=== PATIENT | male | born 1960 ===

== ENCOUNTER 2018-06-26 20:07 | Inpatient (IN) | payer OTHER ==
[~2018-06-26] VITALS: Ht 165.1 cm; Wt 41.1 kg
[2018-06-26 20:25] LABS: Calcium, Ionized (POC) 1.14 mmol/L (1.10-1.46); Chloride (POC) 98 mmol/L (98-108); Creatinine (POC) 0.9 mg/dL (0.8-1.3); Glucose (ISTAT POC) 239 mg/dL (70-99); Hemoglobin (POC) 15.6 g/dL (13.5-17.5); Sodium (POC) 138 mmol/L (135-148); Total CO2 (POC) 20 mmol/L (21-32)
[2018-06-26 20:25] LABS: Source, Urine Catheter
[2018-06-26 20:26] LABS: BASOPHILS ABSOLUTE AUTO 0.17 K/mm3 (0.00-0.23); BASOPHILS PERCENT AUTO 2 % (0-2); EOSINOPHILS ABSOLUTE AUTO 0.24 K/mm3 (0.00-0.68); EOSINOPHILS PERCENT AUTO 2 % (0-6); Hematocrit 45.8 % (37.0-53.0); Hemoglobin 14.7 g/dL (13.5-17.5); IMMATURE GRAN ABSOLUTE AUTO 0.22 K/mm3 (0.00-0.10); IMMATURE GRAN PERCENT AUTO 2 % (0-1); LYMPHOCYTES PERCENT AUTO 22 % (21-46); MONOCYTES ABSOLUTE AUTO 0.57 K/mm3 (0.16-1.47); MONOCYTES PERCENT AUTO 5 % (4-13); Mean Corpuscular HGB 33.2 pg (26.0-34.0); Mean Corpuscular HGB Conc 32.1 g/dL (31.5-36.5); Mean Corpuscular Volume 103 fL (80-100); Mean Platelet Volume 9.2 fL (9.1-12.4); NEUTROPHILS ABSOLUTE AUTO 7.44 K/mm3 (1.96-9.15); NEUTROPHILS PERCENT AUTO 67 % (41-73); Platelet Count 297 K/mm3 (150-400); RDW Coefficient Variation 13.5 % (11.7-14.2); RDW Standard Deviation 52.1 fL (35.1-46.3); Red Blood Cell Count 4.43 M/mm3 (4.30-5.90); White Blood Cell Count 11.04 K/mm3 (4.00-11.30)
[2018-06-26 20:33] LABS: Appearance, Urine Clear (Clear); Bilirubin, Urine Neg (Neg); Blood, Urine 4+ (Neg); Color, Urine Yellow (P-Yellow); Glucose Qualitative, Urine 3+ (Neg); Ketones, Urine Neg (Neg); Leukocyte Esterase, Urine Neg (Neg); Nitrite, Urine Neg (Neg); Protein, Urine 2+ (Neg); Specific Gravity, Urine 1.015 (1.003-1.022); Urobilinogen, Urine NORM (Normal)
[2018-06-26 20:45] LABS: PCO2 Arterial 37.9 mmHg (35-45); pH Blood Arterial 7.32 (7.35-7.45)
[2018-06-26 20:48] LABS: Bacteria Rare /hpf; Squamous Epithelial Cells Not Seen /hpf (Few); White Blood Cells, Urine 0-2 /hpf (0-5)
[2018-06-26 20:49] LABS: U Amphetamine Screen Not Detected; U Barbituate Screen Not Detected; U Benzodiazapine Screen Not Detected; U Cocaine Screen Not Detected; U Methadone Screen Not Detected; U Methamphetamine Screen Not Detected
[2018-06-26 20:50] LABS: U Buprenorphine Screen Not Detected; U Cannabinoids Screen Not Detected; U Opiates Screen Not Detected; U Oxycodone Screen Not Detected; U Phencyclidine Screen Not Detected; U Propoxyphene Screen Not Detected
[2018-06-26 21:46] LABS: Ethanol (Alcohol), Blood, Med <3 mg/dL
[2018-06-26 21:58] LABS: Albumin/Globulin Ratio 0.8 (0.8-1.8); Anion Gap 18 mmol/L (6-16); Aspartate Aminotrans (AST/SGOT 16 U/L (12-37); Bilirubin, Total 0.4 mg/dL (0.1-1.0); Blood Urea Nitrogen 8 mg/dL (8-24); CO2, Blood 18 mmol/L (21-32); Calcium, Blood 8.2 mg/dL (8.5-10.1); Chloride, Blood 100 mmol/L (98-108); Globulin, Blood 3.6 g/dL (2.2-4.0); Glucose, Blood 231 mg/dL (70-99); Sodium, Blood 136 mmol/L (136-145); Total Protein, Blood 6.6 g/dL (6.4-8.2); Troponin I <0.015 ng/mL (0.000-0.040)
[2018-06-26 22:15] LABS: Calcium, Ionized (POC) 1.02 mmol/L (1.10-1.46); Chloride (POC) 98 mmol/L (98-108); Creatinine (POC) 0.9 mg/dL (0.8-1.3); Glucose (ISTAT POC) 202 mg/dL (70-99); Hemoglobin (POC) 15.6 g/dL (13.5-17.5); Potassium (POC) 3.2 mmol/L (3.5-5.5); Sodium (POC) 138 mmol/L (135-148); Total CO2 (POC) 23 mmol/L (21-32)
[2018-06-26 22:18] LABS: Alanine Aminotransfer (ALT/SGP 26 U/L (12-78); Alk Phos 142 U/L (50-136); Bun/Creatinine Ratio 8.2 (12.0-20.0); Creatinine, Blood 0.98 mg/dL (0.60-1.20); Glomerular Filtration Rate >60 (60-)
[2018-06-26 23:04] LABS: International Normalized Ratio 1.05; Prothrombin Time Results 11.1 Sec (9.7-11.5)
[2018-06-26 23:15] LABS: PCO2 Arterial 37.6 mmHg (35-45); PO2 Arterial 174 mmHg (80-100); pH Blood Arterial 7.44 (7.35-7.45)
--- NOTE | 2018-06-27 00:14 | NUR ---
PT ARRIVED TO ICU 7 VIA GURNEY FROM ER, PT IS INTUBATED AND SEDATED, PROPOFOL AT 50 MCG/KG/MIN TO RIGHT AC IV SITE, ETT 8.0 NOTED AT 25 CM AT BOTTOM LIP HOWEVER 26 CM AT TOP LIP, ONLY 1 TOOTH PRESENT ALONG LOWER GUMLINE RIGHT SIDE OF MOUTH. VENT A/C 16, PEEP 5.0, FIO2 35 %, TV 500, ALL RESPIRATIONS AT THIS TIME ARE CONTROLLED, NO SPONTANEOUS ARE NOTED, LUNGS CLEAR THROUGHOUT, SATS 99%. HRR, TONES DISTANT, PRESSURES MAINTAINING, PULSES FULL X 4 EXTREMITIES. LACERATION NOTED TO NOSE, SUTURES PLACED IN ER, SEE PHOTO. PUPILS 2, SLIGHT REACTION TO LIGHT, NO TRACKING, PT DOES WITHDRAW FEET FROM NOXIOUS STIMULI HOWEVER NO RESPONSE TO BILAT UPPER EXTREMITIES, ON OCCASION ABNORMAL FLEXION IS NOTED TO BILAT UPPER EXTREMITIES. WILL MONITOR.
[2018-06-27 02:35] LABS: Hematocrit 41.5 % (37.0-53.0); Hemoglobin 14.2 g/dL (13.5-17.5); Mean Corpuscular HGB 32.9 pg (26.0-34.0); Mean Corpuscular HGB Conc 34.2 g/dL (31.5-36.5); Mean Platelet Volume 9.2 fL (9.1-12.4); Platelet Count 238 K/mm3 (150-400); RDW Coefficient Variation 13.2 % (11.7-14.2); RDW Standard Deviation 47.6 fL (35.1-46.3); Red Blood Cell Count 4.31 M/mm3 (4.30-5.90); White Blood Cell Count 12.88 K/mm3 (4.00-11.30)
[2018-06-27 02:37] LABS: Mean Corpuscular Volume 96 fL (80-100)
[2018-06-27 02:46] LABS: Alanine Aminotransfer (ALT/SGP 23 U/L (12-78); Albumin/Globulin Ratio 0.9 (0.8-1.8); Alk Phos 128 U/L (50-136); Anion Gap 8 mmol/L (6-16); Aspartate Aminotrans (AST/SGOT 12 U/L (12-37); Bilirubin, Total 0.7 mg/dL (0.1-1.0); Blood Urea Nitrogen 8 mg/dL (8-24); Bun/Creatinine Ratio 9.4 (12.0-20.0); CO2, Blood 25 mmol/L (21-32); Calcium, Blood 7.7 mg/dL (8.5-10.1); Chloride, Blood 106 mmol/L (98-108); Creatinine, Blood 0.85 mg/dL (0.60-1.20); Globulin, Blood 3.3 g/dL (2.2-4.0); Glomerular Filtration Rate >60 (60-); Glucose, Blood 76 mg/dL (70-99); Magnesium, Blood 2.2 mg/dL (1.6-2.4); Potassium, Blood 4.5 mmol/L (3.5-5.5); Sodium, Blood 139 mmol/L (136-145); Total Protein, Blood 6.3 g/dL (6.4-8.2)
[2018-06-27 03:45] LABS: Adenovirus Not Detected (NOT DETECT); Bordetella pertussis Not Detected (NOT DETECT); Chlamydophila pneumoniae Not Detected (NOT DETECT); Coronavirus 229E Not Detected (NOT DETECT); Coronavirus HKU1 Not Detected (NOT DETECT); Coronavirus NL63 Not Detected (NOT DETECT); Coronavirus OC43 Not Detected (NOT DETECT); Human Metapneumovirus Not Detected (NOT DETECT); Human Rhinovirus/Enterovirus Not Detected (NOT DETECT); Influenza A Not Detected (NOT DETECT); Influenza A/2009-H1 Not Detected (NOT DETECT); Influenza A/H1 Not Detected (NOT DETECT); Influenza A/H3 Not Detected (NOT DETECT); Influenza B Not Detected (NOT DETECT); Mycoplasma pneumoniae Not Detected (NOT DETECT); Parainfluenza Virus 1 Not Detected (NOT DETECT); Parainfluenza Virus 2 Not Detected (NOT DETECT); Parainfluenza Virus 3 Not Detected (NOT DETECT); Parainfluenza Virus 4 Not Detected (NOT DETECT); Respiratory Syncytial Virus Not Detected (NOT DETECT)
[2018-06-27 05:03] LABS: PO2 Arterial 113 mmHg (80-100); pH Blood Arterial 7.54 (7.35-7.45)
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
--- NOTE | 2018-06-27 11:00 | NUR ---
ASSUMED CARE OF PATIENT PATIENT INTUBATED, SEDATION ON STANDBY SINCE THIS AM. PATIENT DOES NOT APPEAR TO HAVE ANY PAIN OR DISCOMFORT AT THIS TIME. PATIENT HAS TEMP OF 98.6 DEGREES FAHRENHEIT. PATIENT SATTING WELL ON VENT SETTINGS OF AC 16, TV 500, PEEP 5, AND FIO2 OF 25%. PATIENT IN SR, HR 70S TO 80S. BP STABLE. BED LOW, CALL LIGHT IN REACH.
--- NOTE | 2018-06-27 12:30 | NUR ---
INITIAL ASSESSMENT PATIENT INTUBATED, NOT ON SEDATION. SEDATION PLACED ON STANDBY AT 0755 THIS AM. PATIENT IS RESPONSIVE TO PAINFUL STIMULI- LOCALIZING MOVEMENTS TO ALL EXTREMITIES. + COUGH, NO GAG OR SWALLOW REFLEXES NOTED. PUPILS 4+, REACT SLUGGISHLY TO LIGHT, DOLLS EYES NOTED. NO SIGNS OF PAIN NOTED. ICE AND FAN PLACED TO KEEP TEMP BELOW 98.6 DEGREES FAHRENHEIT FOR 24 HOURS AFTER REWARMING PER ORDERS. PATIENT SATTING WELL ON VENT SETTINGS OF AC 16, TV 500, PEEP 5, FIO2 25%. LUNGS CLEAR THROUGHOUT AFTER SUCTIONING. COPIOUS, MAROON, THICK ORAL SECRETIONS NOTED. SMALL AMOUNT OF FROTHY, YELLOW SPUTUM BEING SUCTIONED FROM ETT. RR 16. PATIENT IN SR, HR 60S TO 80S. BP STABLE. PULSES STRONG, NO EDEMA NOTED. ABDOMEN SOFT, NORMOACTIVE BS. DATE OF LAST BM UNKNOWN. OG TO LIS, DRAINING GREEN FLUID. TEMP PROBE YUSUF DRAINING GREEN/ TEA COLORED URINE. SKIN IS DRY. SCATTERED SCABS TO BLES. NOSE IS SWOLLEN AND CUT FROM FALL- SUTURES IN PLACE. NS WITH 40 KCL INFUSING AT 75 MLS/ HOUR. BED LOW, CALL LIGHT IN REACH. WILL CONTINUE TO MONITOR PATIENT FREQUENTLY THROUGHOUT SHIFT.
--- NOTE | 2018-06-27 14:45 | NUR ---
SPOKE TO DR. GREENWOOD ABOUT PATIENT'S INCREASED BP, HR AND RR. PATIENT APPEARS IF HE IS IN PAIN AND DID HAVE TRAUMATIC FALL. PRN ORDER FOR IV FENTANYL OBTAINED.
--- NOTE | 2018-06-27 17:17 | NUR ---
PATIENT REMAINS WITHOUT SEDATION. PATIENT HAS TEMP OF 99.1 DEGREES FAHRENHEIT. ICE PACKS REPLACED, FAN REMAINS ON, PRN TYLENOL GIVEN. PATIENT REMAINS SATTING WELL ON SAME VENT SETTINGS. PATIENT GIVEN PRN FENTANYL FOR SIGNS OF GRIMACING AND INCREASED BP.
--- NOTE | 2018-06-27 18:10 | NUR ---
SHIFT SUMMARY PATIENT REMAINED INTUBATED WITHOUT SEDATION THROUGHOUT SHIFT. PATIENT CONTINUED TO ONLY REACT TO PAINFUL STIMULI. PATIENT HAS BEEN SHIVERING SINCE TRYING TO KEEP TEMPERATURE UNDER 98.6 DEGREES FAHRENHEIT. PATIENT HAD TMAX OF 99.3 DEGREES FAHRENHEIT. PATIENT LUNGS COARSE UNTIL SUCTIONED AND THEN CLEAR THROUGHOUT. PATIENT REMAINS SATTING WELL ON SAME VENT SETTINGS. LARGE AMOUNT OF THICK, MAROON ORAL SECRETIONS NOTED. MODERATE AMOUNT OF FROTHY TO THICK, YELLOW SPUTUM BEING SUCTIONED FROM ETT. PATIENT REMAINS IN SR, HR 50S TO 90S. BLOOD PRESSURE ELEVATED AT TIMES- APPEARS TO BE RELATED TO PAIN. PRN FENTANYL GIVEN AND BP IMPROVED. OG REMAINS TO LIS DRAINING GREEN FLUID. TEMP PROBE YUSUF REMAINS DRAINING TEA TO GREEN COLORED URINE WITH SEDIMENT NOTED. NO CHANGE IN SKIN. BACITRACIN APPLIED TO NOSE T/O SHIFT. D5LR INFUSING AT 75 MLS/ HOUR. PATIENT DID NOT NEED BS COVERAGE T/O SHIFT. BED LOW, CALL LIGHT IN REACH. WILL CONTINUE TO MONITOR PATIENT FREQUENTLY UNTIL REPORT GIVEN TO ONCOMING STOCK CUTTER NURSE SHORTLY.
--- NOTE | 2018-06-27 18:35 | NUR ---
PATIENT GIVEN PRN HYDRALAZINE FOR CONTINUED HYPERTENSION- SBP OVER 160. WILL CONTINUE TO MONITOR.
--- NOTE | 2018-06-27 19:00 | NUR ---
ASSUMED CARE REPORT/ASSESSMENT COMPLETED. PT INTUBATED AT AC16/500/25%/5 WITHOUT SEDATION. PT HAS NO PURPOSEFUL MOVEMENT, HAS AN INTERNAL ROTATION OF BUE TO PAIN, NO CORNEAL OR GAG REFLEX. ICE PACKS IN PLACE, ORDER TO MAINTAIN CORE TEMP <98.6, PT IS SHIVERING. EKG SHOWS SR, BP ELEVATED BUT HAS JUST HAD ONE DOSE OF HYDRALAZINE. PLAN TO MEDICATE FOR PAIN IF CNVI ELEVATED.
--- NOTE | 2018-06-27 23:47 | NUR ---
SBT DISCUSSED SBT IN AM WITH RT. UPDATED THAT PT NOT ON ANY SEDATION. RT CHANGED PT OVER TO PS SETTING IN ORDER TO SEE IF PT WAS ABLE TO TOLERATE A FULL SBT IN AM. SBT LASTED UNDER ONE MINUTE D/T PT RR INCREASING FROM LOW-MID 20'S TO 35 AND PT HAD ALTERNATING SMALL BREATHS WITH LARGER VOLUME BREATHS WITH TV'S RANGING BETWEEN 50-250. SBT STOPPED D/T LOW TV'S.
--- NOTE | 2018-06-28 00:20 | NUR ---
UPDATE PT HAVING RHYTHMIC FLEXION AND INTERNAL ROTATION OF BUE WITH R>L AND SAME RHYTHMIC MOVEMENT NOTED TO BILAT KNEES. 1MG ATIVAN ADMINISTERED BUT NO CHANGE IN MOVEMENTS NOTED. PUPILS REMAIN REACTIVE WITH GAZE TO THE LFFT, NO GAG OR CORNEAL REFLEX NOTED.
[2018-06-28 03:46] LABS: BASOPHILS ABSOLUTE AUTO 0.05 K/mm3 (0.00-0.23); BASOPHILS PERCENT AUTO 0 % (0-2); EOSINOPHILS PERCENT AUTO 0 % (0-6); Hematocrit 41.8 % (37.0-53.0); Hemoglobin 14.1 g/dL (13.5-17.5); IMMATURE GRAN ABSOLUTE AUTO 0.09 K/mm3 (0.00-0.10); IMMATURE GRAN PERCENT AUTO 1 % (0-1); LYMPHOCYTES ABSOLUTE AUTO 0.49 K/mm3 (0.84-5.20); LYMPHOCYTES PERCENT AUTO 4 % (21-46); MONOCYTES ABSOLUTE AUTO 0.68 K/mm3 (0.16-1.47); MONOCYTES PERCENT AUTO 5 % (4-13); Mean Corpuscular HGB 32.3 pg (26.0-34.0); Mean Corpuscular HGB Conc 33.7 g/dL (31.5-36.5); Mean Corpuscular Volume 96 fL (80-100); Mean Platelet Volume 9.6 fL (9.1-12.4); NEUTROPHILS PERCENT AUTO 90 % (41-73); Platelet Count 244 K/mm3 (150-400); RDW Coefficient Variation 13.5 % (11.7-14.2); RDW Standard Deviation 47.6 fL (35.1-46.3); Red Blood Cell Count 4.37 M/mm3 (4.30-5.90); White Blood Cell Count 13.01 K/mm3 (4.00-11.30)
[2018-06-28 04:10] LABS: Alanine Aminotransfer (ALT/SGP 19 U/L (12-78); Albumin, Blood 2.6 g/dL (3.4-5.0); Albumin/Globulin Ratio 0.8 (0.8-1.8); Alk Phos 116 U/L (50-136); Anion Gap 10 mmol/L (6-16); Aspartate Aminotrans (AST/SGOT 15 U/L (12-37); Bilirubin, Direct 0.5 mg/dL (0.0-0.3); Bilirubin, Indirect 0.9 mg/dL (0.1-0.7); Bilirubin, Total 1.4 mg/dL (0.1-1.0); Blood Urea Nitrogen 11 mg/dL (8-24); Bun/Creatinine Ratio 15.5 (12.0-20.0); CO2, Blood 21 mmol/L (21-32); Calcium, Blood 7.8 mg/dL (8.5-10.1); Chloride, Blood 108 mmol/L (98-108); Creatinine, Blood 0.71 mg/dL (0.60-1.20); Globulin, Blood 3.2 g/dL (2.2-4.0); Glomerular Filtration Rate >60 (60-); Glucose, Blood 136 mg/dL (70-99); Magnesium, Blood 1.7 mg/dL (1.6-2.4); Phosphorus, Blood 1.4 mg/dL (2.5-4.9); Sodium, Blood 139 mmol/L (136-145); Total Protein, Blood 5.8 g/dL (6.4-8.2)
[2018-06-28 04:11] LABS: Troponin I 0.016 ng/mL (0.000-0.040)
--- NOTE | 2018-06-28 06:43 | NUR ---
SHIFT SUMMARY PT REMAINS INTUBATED WITH PREVIOUS NOTED SETTINGS. NO SEDATION FOR SHIFT BUT HAS BEEN MEDICATED WITH FENTANYL BASED ON CNVI AND ELEVATED RESP RATE. D5LR CONTINUES AT 75ML/HR AND KPHOS RIDER INITIATED AFTER MORNING LABS. DESPITE NO SEDATION, PT CONTINUES TO BE UNRESPONSIVE TO VERBAL BUT HAS RESPONDED TO PAIN WITH INTERNAL FLEXION AND ROTATION BUT NOTHING PURPOSEFUL, NO GAG, NO CORNEAL REFLEX BUT DOES HAVE AN OCCASIONAL COUGH. VSS, BP SOMETIMES ELEVATED BUT FENTANYL EFFECTIVE, EKG SHOW SR AND O2 SATS MID 90'S.
--- NOTE | 2018-06-28 09:17 | NUR ---
HEARD BACK FROM THE MICA PATCHER THAT PT HAS NO KNOWN NEXT OF KIN IN ANY OF THEIR RECORDS.
--- NOTE | 2018-06-28 11:16 | NUR ---
WENT THROUGH PT'S BELONGINGS LOOKING FOR NEXT OF KIN INFORMATION. FOUND PT'S CERTIFICATE WITH PARENTS' NAMES LISTED, BUT UNABLE TO FIND CONTACT INFORMATION. PT HAD PHONE NUMBER FOR [facility] [facility], SPOKE WITH BERT WHO STATES HE HARDLY KNEW HIM, HAD JUST TALKED TO HIM A LITTLE BIT AND BOUGHT HIM THE BUS TICKET TO COME DOWN HERE. BERT STATES KENDELL HAD TALKED ABOUT A DAUGHTER THAT LIVES IN THE [place], BUT DOESN'T KNOW A NAME. BERT ALSO STATES KENDELL SAID HE WAS IN THE AND RECEIVES BENEFITS THAT GO TO HIS DAUGHTER. CALLED [facility] AND [facility], BUT NEITHER HAD ANY INFORMATION ON KENDELL. PALLIATIVE CARE AWARE OF STEPS TAKEN TO FIND NEXT OF KIN AND PLAN IS TO HAVE WASH DRILLER HELPERTAPING MACHINE OPERATOR THE LOCAL HOMELESS SHELTERS TO SEE IF THEY HAVE ANY INFORMATION. OTHER GARCIA PT HAS HAD NO CHANGES FROM EARLIER ASSESSMENT. REMAINS UNRESPONSIVE, EXCEPT FOR HIS LOWER LEGS WITHDRAWING FROM TACTILE STIMULI. LUNGS ARE COARSE BEFORE SUCTIONING, CLEAR AFTER. HE IS TACHYPNEIC AND BP HAS BEEN ELEVATED, SEE VITALS. PAIN MEDICATION GIVEN TO TRY AND HELP WITH THESE WITH SLIGHT IMPROVEMENT. YUSUF WITH DARK YELLOW URINE. CONTINUING TO MONITOR.
--- NOTE | 2018-06-28 17:01 | NUR ---
SHIFT SUMMARY: PT REMAINS UNRESPONSIVE, VENTED, NOT ON ANY SEDATON. PUPILS STILL SLUGGISH. LOWER LIMBS WITHDRAW FROM TACTILE STIMULI, UPPER EXTREMITIES TWITCH IN DECORTICATE TYPE POSTURING OCCASIONALLY. LUNGS CLEAR, SR BP STABLE. CONTINUES TO BE FEBRILE, TYLENOL GIVEN THIS AFTERNOON. TUBE FEED STARTED AND PT IS TOLERATING SO FAR. CONTINUING TO MONITOR.
--- NOTE | 2018-06-28 19:27 | NUR ---
search on social media and [employer] for pt contacts not paper of infor for next of kin. possible vet. intenet search possible incareration in [place]. will contact [facility] again to see if pt in system
--- NOTE | 2018-06-28 19:30 | NUR ---
ASSUMED CARE BEDSIDE REPORT RECIEVED. PT IS NOT SEDATED, ON VENTILATOR AND UNRESPONSIVE. VENT SETTINGS AC 16, TV 500, PEEP 5, FIO2 25%. PT WITH THICK YELLOW SECRETIONS SUCTIONED FROM ETT. PT HAS COUGH, NO GAG WITH DEEP SUCTION. PT WITH PERIODIC JERKING LIKE MOVEMENTS TO BUE AND INWARD FLEXION. PT WITH SPONTANEOUS GROSS MOVEMENTS NOTED TO BLE. ONLY MOVES BLE WITH NOXIOUS STIMULI. D5LR INFUSING AT 75 ML/HR THROUGH PIV. OGT IN PLACE WITH TF AT 25 ML/HR. WILL INCREASE TO GOAL RATE TOLERATED. YUSUF IN PLACE WITH DARK YELLOW OUTPUT NOTED. PT WITH INJURY TO NOSE, SUTURES IN PLACE WITH OINTMENT ON NOSE. SEE PHOTOS IN CHART. VITAL SIGNS STABLE. WILL CONTINUE TO MONITOR.
[2018-06-29 03:25] LABS: BASOPHILS ABSOLUTE AUTO 0.03 K/mm3 (0.00-0.23); BASOPHILS PERCENT AUTO 0 % (0-2); EOSINOPHILS PERCENT AUTO 0 % (0-6); Hematocrit 40.1 % (37.0-53.0); Hemoglobin 13.4 g/dL (13.5-17.5); IMMATURE GRAN ABSOLUTE AUTO 0.12 K/mm3 (0.00-0.10); IMMATURE GRAN PERCENT AUTO 1 % (0-1); LYMPHOCYTES ABSOLUTE AUTO 0.59 K/mm3 (0.84-5.20); LYMPHOCYTES PERCENT AUTO 6 % (21-46); MONOCYTES ABSOLUTE AUTO 0.69 K/mm3 (0.16-1.47); MONOCYTES PERCENT AUTO 7 % (4-13); Mean Corpuscular HGB 32.6 pg (26.0-34.0); Mean Corpuscular HGB Conc 33.4 g/dL (31.5-36.5); Mean Corpuscular Volume 98 fL (80-100); Mean Platelet Volume 9.8 fL (9.1-12.4); NEUTROPHILS ABSOLUTE AUTO 8.63 K/mm3 (1.96-9.15); NEUTROPHILS PERCENT AUTO 86 % (41-73); Platelet Count 177 K/mm3 (150-400); RDW Coefficient Variation 13.6 % (11.7-14.2); RDW Standard Deviation 49.2 fL (35.1-46.3); Red Blood Cell Count 4.11 M/mm3 (4.30-5.90); White Blood Cell Count 10.06 K/mm3 (4.00-11.30)
[2018-06-29 03:41] LABS: Albumin, Blood 2.1 g/dL (3.4-5.0); Anion Gap 6 mmol/L (6-16); Blood Urea Nitrogen 15 mg/dL (8-24); Bun/Creatinine Ratio 23.4 (12.0-20.0); CO2, Blood 26 mmol/L (21-32); Calcium, Blood 7.7 mg/dL (8.5-10.1); Chloride, Blood 106 mmol/L (98-108); Creatinine, Blood 0.64 mg/dL (0.60-1.20); Glomerular Filtration Rate >60 (60-); Glucose, Blood 120 mg/dL (70-99); Magnesium, Blood 1.4 mg/dL (1.6-2.4); Phosphorus, Blood 1.5 mg/dL (2.5-4.9); Potassium, Blood 3.9 mmol/L (3.5-5.5); Sodium, Blood 138 mmol/L (136-145)
--- NOTE | 2018-06-29 04:51 | NUR ---
SHIFT SUMMARY NO ACUTE CHANGES THIS SHIFT. PT REMAINS UNSEDATED ON THE VENT. PT IS STARTING TO AROUSE TO LOUD VERBAL STIMULI THIS MORNING. PT OPENS EYES TO COMMAND AND APPEARS TO BE TRACKING. PT UNABLE TO SQUEEZE HANDS OR MAKE PURPOSEFUL MOVEMENTS IN EXTREMITIES. PT GRIMMACES WITH ORAL CARE. PT REMAINS IN SBW RESTRAINTS. VENT SETTINGS UNCHANGED. TF INFUSING AT 30 ML/HR GOAL RATE WITH MINIMAL RESIDUALS NOTED. D5LR REMAINS AT 75 ML/HR. YUSUF REMAINS IN PLACE WITH DARK YELLOW OUTPUT NOTED. VITAL SIGNS HAVE REMAINED STABLE. WILL CONTINUE TO MONITOR AND REPORT OFF TO ONCOMING RN.
--- NOTE | 2018-06-29 07:14 | NUR ---
ASSUMED CARE REPORT FROM NICOLETTE GARCIA. PATIENT BENDING LEFT LEG UP. OPENED EYES ON COMMAND. INTUBATED, VENTILATED AND RESTRAINED.
--- NOTE | 2018-06-29 07:58 | NUR ---
MD VISIT DR. PLUNKETT IN
--- NOTE | 2018-06-29 08:38 | NUR ---
VENT ALARMING DISCONNECT. HUANG RT, NOTIFIED AND PATIENT WAS SWITCHED TO SPONT. PATIENT IS BECOMING MORE AWAKE, HOLDING SEDATION UNTIL DR. HOLLOWAY IN TO EVALUATE
--- NOTE | 2018-06-29 12:24 | NUR ---
MD VISIT DR. HOLLOWAY IN 1115. PROPOFOL STARTED
--- NOTE | 2018-06-29 13:24 | NUR ---
SPUTUM SAMPLE SENT.
--- NOTE | 2018-06-29 14:03 | NUR ---
Pt alone in room and did not respond to voice or touch. Provided prayer at bedside. I will remain available to pt and family/friends.
--- NOTE | 2018-06-29 17:29 | NUR ---
BP LOW. PROPOFOL TITRATED TO 30 MCG/KG/MIN
--- NOTE | 2018-06-29 19:14 | NUR ---
SBP IMPROVED WITH NS BOLUS. REPORT GIVEN TO NICOLETTE RAYO
--- NOTE | 2018-06-29 19:15 | NUR ---
ASSUMED CARE OF PT, BEDSIDE REPORT RECEIVED. PT SEDATED WITH PROPOFOL AT 30 MCG/KG/MIN INFUSING TO LEFT UPPER ARM. DOES WIGGLE TOES BILAT FEET ON COMMAND, MOVES FEET AWAY FROM NOXIOUS STIMULI, DOES NOT WATER PURIFIER WITH LEFT HAND BUT FINGERS WEAKLY WATER PURIFIER WITH RIGHT HAND. PT REMAINS INTUBATED, 8.0 ETT AT 25 CM AT BOTTOM LIP, VENT SETTINGS AC 16, TV 500, PEEP 5, FIO2 25%, ALL RESPIRATIONS SHOW CONTROLLED AT THIS TIME, SATS HIGH 90S, LUNGS CLEAR THROUGHOUT. HRR, SINUS ON MONITOR, OCCASIONAL PAC IS NOTED, PRESSURE IMPROVED AFTER BOLUS PER OFFGOING RN, PULSES FULL X 4 EXTREMITIES, SKIN PWD. BOWEL TONES ACTIVE X 4 PIVOT 1.5 INFUSING AT GOAL RATE OF 30 ML/HR, RESIDUAL MINIMAL, LESS THAN 5 ML, DARK BROWN UNFORMED BOWEL MOVEMENT IS NOTED TO BEDDING. NOSE IS NOTED TO HAVE LARGE SCAB PRESENT OVER LACERATION/ABRASION EXTENDING BEYOND WOUND EDGES, WILL PROVIDE WOUND CARE. YUSUF REMAINS IN PLACE DRAINING CLEAR DARK YELLOW URINE TO GRAVITY WILL MONITOR.
[2018-06-30 04:11] LABS: BASOPHILS ABSOLUTE AUTO 0.03 K/mm3 (0.00-0.23); BASOPHILS PERCENT AUTO 0 % (0-2); EOSINOPHILS ABSOLUTE AUTO 0.13 K/mm3 (0.00-0.68); EOSINOPHILS PERCENT AUTO 2 % (0-6); Hematocrit 36.4 % (37.0-53.0); IMMATURE GRAN ABSOLUTE AUTO 0.04 K/mm3 (0.00-0.10); IMMATURE GRAN PERCENT AUTO 1 % (0-1); LYMPHOCYTES ABSOLUTE AUTO 0.79 K/mm3 (0.84-5.20); LYMPHOCYTES PERCENT AUTO 11 % (21-46); MONOCYTES ABSOLUTE AUTO 0.62 K/mm3 (0.16-1.47); MONOCYTES PERCENT AUTO 9 % (4-13); Mean Corpuscular HGB 32.5 pg (26.0-34.0); Mean Corpuscular Volume 99 fL (80-100); Mean Platelet Volume 9.9 fL (9.1-12.4); NEUTROPHILS ABSOLUTE AUTO 5.67 K/mm3 (1.96-9.15); NEUTROPHILS PERCENT AUTO 78 % (41-73); Platelet Count 174 K/mm3 (150-400); RDW Coefficient Variation 13.5 % (11.7-14.2); RDW Standard Deviation 49.5 fL (35.1-46.3); Red Blood Cell Count 3.69 M/mm3 (4.30-5.90); White Blood Cell Count 7.28 K/mm3 (4.00-11.30)
[2018-06-30 04:38] LABS: Magnesium, Blood 1.7 mg/dL (1.6-2.4)
[2018-06-30 04:43] LABS: Albumin, Blood 1.9 g/dL (3.4-5.0); Anion Gap 10 mmol/L (6-16); Blood Urea Nitrogen 17 mg/dL (8-24); Bun/Creatinine Ratio 24.7 (12.0-20.0); CO2, Blood 24 mmol/L (21-32); Calcium, Blood 7.3 mg/dL (8.5-10.1); Chloride, Blood 106 mmol/L (98-108); Creatinine, Blood 0.69 mg/dL (0.60-1.20); Glomerular Filtration Rate >60 (60-); Glucose, Blood 98 mg/dL (70-99); Phosphorus, Blood 2.2 mg/dL (2.5-4.9); Potassium, Blood 3.3 mmol/L (3.5-5.5); Sodium, Blood 140 mmol/L (136-145)
--- NOTE | 2018-06-30 05:59 | NUR ---
PT REMAINS SEDATED AND INTUBATED, PROPOFOL CONTINUES AT 30 MCG/KG/MIN AT THIS TIME, IT WAS BRIEFLY INCREASED TO 40 MCG/KG/MIN SECONDARY TO PT INCREASED RESPIRATORY RATE TO HIGH 30S, FENTANYL 50 MCG IV X 1 ADMIN AND PT TOLERATED WELL. SEDATION VACATION THIS AM FOR SPONTANEOUS BREATHING TRIAL, HE OPENED EYES AND WOULD TRACK MOVEMENT IN ROOM, APPEARED TO ANSWER YES/NO QUESTIONS APPROPRIATELY HOWEVER DID NOT FOLLOW COMMANDS, NO GAG REFLEX WAS NOTED AT THAT TIME. SUCTION OF ETT DOES PRODUCE THICK YELLOW SPUTUM HOWEVER LUNGS CONTINUE TO SOUND CLEAR THROUGHOUT, SATS MID 90S WITH VENT SETTINGS UNCHANGED. HRR, CONTINUES IN SINUS WITH OCCASIONAL PACS, MAINTAINING BP. ACTIVE BOWEL TONES CONTINUE, TUBE FEEDS AT GOAL, RESIDUALS MINIMAL WITH MAX OF 20 ML AT MIDNOC ASSESSMENT. BM X 3 THIS SHIFT.
--- NOTE | 2018-06-30 07:09 | NUR ---
ASSUMED CARE REPORT FROM NICOLETTE RAYO. PATIENT FAILED SBT THIS AM BECAUSE HE FAILED TO FOLLOW COMMANDS AND HAD NO GAG REFLEX
--- NOTE | 2018-06-30 07:56 | NUR ---
MD VISIT DR. PLUNKETT IN
--- NOTE | 2018-06-30 09:13 | NUR ---
SEDATION VACATION. PATIENT OPENS HIS EYES SPONTANEOUSLY AFTER PROPOFOL STOPPED. UNABLE TO FOLLOW COMMANDS. FOLLOWS AROUND THE ROOM WITH HIS EYES.
--- NOTE | 2018-06-30 09:30 | NUR ---
MD VISIT DR. HOLLOWAY IN. CHANGED VENT TO SPONT WITH PEEP OF 5. FIO2 25%. COPIOUS SECRETIONS, COUGH STRONGER NOW THAT HE IS MORE AWAKE. WAS ABLE TO BRING HIS LEFT HAND UP TO HIS ETT. NOTED WEAKNESS IN HIS RIGHT ARM BUT HE DOES MOVE HIS RIGHT ARM AND FOOT. SEEMS TO HAVE SOME DIFFICULTY HEARING. ESPECIALLY ON THE RIGHT.
--- NOTE | 2018-06-30 11:13 | NUR ---
CONTACTED DR. BERG FOR NEURO CONSULT. ORDER FOR MRI WITHOUT CONTRAST WHEN PATIENT IS EXTUBATED.
--- NOTE | 2018-06-30 18:59 | NUR ---
MD VISIT DR. BERG IN
--- NOTE | 2018-06-30 19:15 | NUR ---
ASSUMED CARE PT INTUBATED AND SEDATED. VENT SETTINGS AT AC165/500/25%/5 AND SEDATION VIA PROPOFOL AT 30MCG/KG/MIN. PT DOES OPEN EYES TO VOICE, APPEARS VERY HUGHES BUT DOES SHAKE HEAD IN RESPONSE TO YES/NO QUESTIONS. SBT PLANNED FOR AM. TF AT GOAL OF 30ML/HR, NO RESIDUAL NOTED. PT HAS HAD SMALL BM, WILL PLACE RECTAL TUBE IF NEEDED. VSS, EKG SHOWS SR WITH OCCASIONAL PAC'S, O2 SATS >90%.
[2018-07-01 03:29] LABS: BASOPHILS ABSOLUTE AUTO 0.05 K/mm3 (0.00-0.23); BASOPHILS PERCENT AUTO 1 % (0-2); EOSINOPHILS ABSOLUTE AUTO 0.27 K/mm3 (0.00-0.68); EOSINOPHILS PERCENT AUTO 5 % (0-6); Hematocrit 34.9 % (37.0-53.0); Hemoglobin 11.6 g/dL (13.5-17.5); IMMATURE GRAN ABSOLUTE AUTO 0.02 K/mm3 (0.00-0.10); IMMATURE GRAN PERCENT AUTO 0 % (0-1); LYMPHOCYTES ABSOLUTE AUTO 0.87 K/mm3 (0.84-5.20); LYMPHOCYTES PERCENT AUTO 16 % (21-46); MONOCYTES ABSOLUTE AUTO 0.63 K/mm3 (0.16-1.47); MONOCYTES PERCENT AUTO 12 % (4-13); Mean Corpuscular HGB 32.9 pg (26.0-34.0); Mean Corpuscular HGB Conc 33.2 g/dL (31.5-36.5); Mean Corpuscular Volume 99 fL (80-100); Mean Platelet Volume 9.5 fL (9.1-12.4); NEUTROPHILS ABSOLUTE AUTO 3.47 K/mm3 (1.96-9.15); NEUTROPHILS PERCENT AUTO 65 % (41-73); Platelet Count 179 K/mm3 (150-400); RDW Coefficient Variation 13.7 % (11.7-14.2); RDW Standard Deviation 49.5 fL (35.1-46.3); Red Blood Cell Count 3.53 M/mm3 (4.30-5.90); White Blood Cell Count 5.31 K/mm3 (4.00-11.30)
[2018-07-01 03:47] LABS: Albumin, Blood 1.8 g/dL (3.4-5.0); Anion Gap 7 mmol/L (6-16); Blood Urea Nitrogen 16 mg/dL (8-24); Bun/Creatinine Ratio 26.2 (12.0-20.0); CO2, Blood 26 mmol/L (21-32); Calcium, Blood 7.4 mg/dL (8.5-10.1); Chloride, Blood 107 mmol/L (98-108); Creatinine, Blood 0.61 mg/dL (0.60-1.20); Glomerular Filtration Rate >60 (60-); Glucose, Blood 90 mg/dL (70-99); Magnesium, Blood 1.9 mg/dL (1.6-2.4); Phosphorus, Blood 2.9 mg/dL (2.5-4.9); Potassium, Blood 3.5 mmol/L (3.5-5.5); Sodium, Blood 140 mmol/L (136-145)
--- NOTE | 2018-07-01 04:00 | NUR ---
SBT/SEDATION VACATION PROPOFOL OFF FROM 30, PT ABLE TO TRACK AND NOD/SHAKE HEAD IN RESPONSE TO YES/NO QUESTIONS. COULD NOT GET PT TO SQUEEZE HANDS ON EITHER SIDE BUT WAS ABLE TO WIGGLE TOES R>L. TV'S 400-500 AND O2 SATS >90%. BP INCREASING, WILL CONTINUE TO MONITOR.
[2018-07-01 05:04] LABS: PCO2 Arterial 40.6 mmHg (35-45); PO2 Arterial 72.3 mmHg (80-100); pH Blood Arterial 7.45 (7.35-7.45)
--- NOTE | 2018-07-01 06:35 | NUR ---
SHIFT SUMMARY NO ACUTE CHANGES OVERNIGHT. PT REMAINS INTUBATED-NO CHANGE TO PREVIOUSLY NOTED VENT SETTINGS AND PROPOFOL AT 30MCG/KG/MIN. TF REMAINS AT GOAL WITH MINIMAL RESIDUALS FOR SHIFT. RECTAL TUBE IN PLACE WITH SOME DRAINAGE IN TUBING. BP REMAINS ELEVATED POST SBT BUT TRENDING DOWNWARD, EKG SHOWS SR/SB AND O2 SATS >90%
--- NOTE | 2018-07-01 06:44 | NUR ---
EEG INFORMATION ASSURANCE MANAGER HERE
--- NOTE | 2018-07-01 07:03 | NUR ---
ASSUMED CARE REPORT FROM NICOLETTE BATES. DRENCHER IN TO SET UP
--- NOTE | 2018-07-01 10:37 | NUR ---
MD VISIT DR HOLLOWAY IN. ORDER FOR DOBHOFF TUBE AND EXTUBATION
--- NOTE | 2018-07-01 11:34 | NUR ---
[id number] SUMMARY OGT TUBE REMOVED PER ORDER. DOBHOFF TUBE PLACED (6 FR AT 60 CM) DOWN RIGHT NARES WHILE ETT STILL IN PLACE. PATIENT VERY UNCOMFORTABLE AND COUGHING. PATIENT EXTUBATED AT 1100. CXR REVEALED DOBHOFF TUBE WAS IN LUNG. PULLED OUT AND PLACED AGAIN. AGAIN IN LUNG. HELD PATIENT HEAD DOWN TO HIS CHEST AND PLACED IT AGAIN THIS TIME WITH PROPER PLACEMENT.
--- NOTE | 2018-07-01 16:15 | NUR ---
RECEIVED REPORT FROM NICOLETTE SHAH, AND ASSUMED CARE OF PT. NEW ORDER TO INCREASE TUBE FEEDINGS BY 10 ML EVERY 8 HOURS UNTIL REACH GOAL RATE OF 45 ML/HR. CURRENT TF RATE WAS AT 30 ML/HR, INCREASED TO 40 ML/HR OVER THE NEXT 8 HOURS. MAY BE INCREASED AT 0015 07/02/18.
--- NOTE | 2018-07-01 17:09 | NUR ---
pt extubated, review of diagnsotics with nursing. will attemtp to assist with contacting family when pt more alert. will update care managers.
--- NOTE | 2018-07-01 19:25 | NUR ---
ASSUMED CARE PT EXTUBATED TODAY. OPENS EYES TO VOICE BUT DOES NOT RESPOND TO QUESTIONS OR FOLLOW SIMPLE COMMANDS. PT DOES NOD YES TO ALL QUESTIONS. ORAL SUCTION COMPLETED BUT PT CLAMPS MOUTH/DOES NOT COUGH AND LARGE AMOUNT OF BRONCHIAL SECRETIONS HEARD W/O STETHOSCOPE. NT SUCTION COMPLETED AND PT DOES MOVE HANDS TOWARD FACE IN ATTEMPTS TO STOP SUCTION. NO RUE MOVEMENT NOTED WITH NT SUCTION. BP ELEVATED OCCASIONALLY, EKG SHOWS SR AND EKG SHOWS SR, O2 SATS AT 95% ON 4L/NC.
--- NOTE | 2018-07-02 00:30 | NUR ---
UPDATE PT RESTLESS, CONTINUES TO NOD YES TO ALL QUESTIONS BUT IS NOT FOLLOWING COMMANDS OR VERBALIZING. PT HAS MADE MULTIPLE ATTEMPTS TO PULL AT DOBHOFF, SOFT RESTRAINT TO LEFT ARM ONLY APPLIED. MEDICATED FOR PAIN, REPOSITIONED AND ORAL CARE HAS BEEN ATTEMPTED FREQUENTLY BUT PT CLAMPS DOWN ON SUCTION DEVICES.
[2018-07-02 03:43] LABS: BASOPHILS ABSOLUTE AUTO 0.07 K/mm3 (0.00-0.23); BASOPHILS PERCENT AUTO 1 % (0-2); EOSINOPHILS ABSOLUTE AUTO 0.06 K/mm3 (0.00-0.68); EOSINOPHILS PERCENT AUTO 1 % (0-6); Hematocrit 42.8 % (37.0-53.0); Hemoglobin 14.1 g/dL (13.5-17.5); IMMATURE GRAN ABSOLUTE AUTO 0.04 K/mm3 (0.00-0.10); IMMATURE GRAN PERCENT AUTO 1 % (0-1); LYMPHOCYTES ABSOLUTE AUTO 0.86 K/mm3 (0.84-5.20); LYMPHOCYTES PERCENT AUTO 12 % (21-46); MONOCYTES PERCENT AUTO 16 % (4-13); Mean Corpuscular HGB 32.4 pg (26.0-34.0); Mean Corpuscular HGB Conc 32.9 g/dL (31.5-36.5); Mean Corpuscular Volume 98 fL (80-100); NEUTROPHILS ABSOLUTE AUTO 4.84 K/mm3 (1.96-9.15); NEUTROPHILS PERCENT AUTO 69 % (41-73); Platelet Count 240 K/mm3 (150-400); RDW Coefficient Variation 13.3 % (11.7-14.2); RDW Standard Deviation 49.1 fL (35.1-46.3); Red Blood Cell Count 4.35 M/mm3 (4.30-5.90); White Blood Cell Count 6.97 K/mm3 (4.00-11.30)
[2018-07-02 04:00] LABS: Anion Gap 7 mmol/L (6-16); Blood Urea Nitrogen 18 mg/dL (8-24); CO2, Blood 26 mmol/L (21-32); Calcium, Blood 7.9 mg/dL (8.5-10.1); Chloride, Blood 110 mmol/L (98-108); Creatinine, Blood 0.64 mg/dL (0.60-1.20); Glomerular Filtration Rate >60 (60-); Glucose, Blood 111 mg/dL (70-99); Phosphorus, Blood 2.4 mg/dL (2.5-4.9); Potassium, Blood 3.9 mmol/L (3.5-5.5); Sodium, Blood 143 mmol/L (136-145)
[2018-07-02 05:09] LABS: PO2 Arterial 80.3 mmHg (80-100); pH Blood Arterial 7.46 (7.35-7.45)
--- NOTE | 2018-07-02 06:08 | NUR ---
SHIFT SUMMARY PT CONTINUES TO NOD YES TO QUESTIONS, INTERMITTENTLY FOLLOWS COMMANDS. THIS AM PT REACHED OUT TO HOLD HANDS AND WAS SMILING BUT THIS RN COULD NOT GET ANY VERBAL RESPONSE OTHER THAN NODDING HEAD YES TO ALL QUESTIONS. PT HAS INCREASED TWITCHING ESPECIALLY TO RT ARM POST REPOSITIONING. TF AT GOAL OF 45ML/HR, NO RESIDUALS OBTAINED D/T DOBHOFF/SMALL BORE NG TUBE BUT PT CONSISTENLY HAD MINIMAL RESIDUALS WITH OG WHILE INTUBATED. ORAL CARE ATTEMPTED FREQUENTLY BUT PT CONTINUES TO CLAMP MOUTH SHUT, WILL OCCASIONALLY ALLOW YANKAUER SUCTION CATH INTO MOUTH. BP HYPERTENSIVE, ONE DOSE HYDRALAZINE GIVEN WITH MINIMAL CHANGES. O2 AT 3L/NC.
--- NOTE | 2018-07-02 11:30 | NUR ---
DR. PLUNKETT AT BEDSIDE FOR EVALUATION. ADVISED DR. PLUNKETT OF LOW PHOSPHORUS = 2.4, ELEVATED BP'S 160'S/90'S CONSISTENTLY, RIGHT SIDED BODY TWITCHING THAT APPEARS TO POSSIBLY BE SEIZURE ACTIVITY, AND IF WE CAN REMOVE THE YUSUF AND PLACE A CONDOM CATH. [facility] AND PLACEMENT OF CONDOM CATH. PLACED CALL TO DR. BERG RE: TWITCHING. AWAITING RETURNED CALL.
--- NOTE | 2018-07-02 12:10 | NUR ---
DR. BERG CALLED BACK. ADVISED OF RIGHT SIDED BODY TWITCHING THAT APPEARS TO POSSIBLY BE SEIZURE ACTIVITY AND INABILITY TO DO THE MRI BECAUSE PT/FAMILY UNABLE TO ANSWER QUESTIONNAIRE SCREENING. NEW ORDER FOR KEPPRA 1,000 MG IV X1 NOW AND CT HEAD WITHOUT CONTRAST.
--- NOTE | 2018-07-02 14:13 | NUR ---
Spoke with Hu Castro re: finding NOK information. Per Hu, pt safety and finding NOK are a priority, so staff can go through pt's belongings. Pt is awake when this conventional underwriter entered the room. He is nonverbal at this time when I ask him questions. Explained to him that this conventional underwriter was going to look for any contact information in his belongings. He will look at me when I speak to him, however it is difficult to know if he is understanding what I say to him. His righht shoulder is twitching which is what his nurse reported earlier today. Pt has several large plastic bags, duffle bags, rolling cart, two cardboard boxes, a back pack and some tarps sitting in the corner of his room. His clothing is damp and is growing mold. Was able to find an index card with a name address and phone number in one of his coat pockets. This same name and phone number were also found on another piece of paper in his pocket. Also found a certificate for Arturo Kauffman with 09/07/1959 and paperwork that states he was arrested in August of 2015. Major Cordero [address] [place] [address] Called Major and spoke with him. He states that he is just an acquaintance of Arturo's. He stated that he knew Arturo lived under a bridge near [place] next to a construction company. He states that he helps out Arturo when he can. Major stated that Arturo told him he was in the [employer]. Major states the Arturo told him he had a daughter but he did not know a name or where she might be. Arturo went to [employer] in [place] according to Major. Major purchased the bus ticket for Arturo to travel to [place]. Major said Arturo didn't tell him why he was coming to [place], however he stated that Arturo used to live in [place] before he went to [place] to get ID. Major stated he believes Arturo was born in [place]. Phone call to Danielle TENORIO RN at [facility]. Pt is not a registered in the local [facility] system. LM for [facility] registration for them to contact PC nurse if they have him listed in their VA system in the [place] area. Nursing updated on NOK search. PC will continue to assist with care planning and NOK locating. Nursing reports pt has received an additional dose of IV keppra today per Dr. Jeffries.
--- NOTE | 2018-07-02 15:02 | NUR ---
PATIENT ESCORTED TO CT SCAN FOR CT SCAN OF HEAD.
--- NOTE | 2018-07-02 15:19 | NUR ---
PATIENT RETURNED TO ROOM FOLLOWING CT SCAN. NICOLETTE MONTAÑO, REMOVED DOBHOFF, STATED IT WAS COMING OUT.
--- NOTE | 2018-07-02 16:06 | NUR ---
NURSING SUMMARY AWAKE, ALERT, NO VERBAL RESPONSE TO QUESTIONS, OCCASSIONALLY WILL SHAKE HIS HEAD YES TO YES/NO QUESTIONS, NEVER SHAKES HIS HEAD NO. NOTED RIGHT SIDED BODY TWITCHING, CONCERNED FOR SEIZURE ACTIVITY, CALLED DR. BERG, NEW ORDERS FOR ADDITIONAL DOSE OF KEPPRA AND CT HEAD. PATIENT TWITCHING SUBSIDED WHEN HEAD IS FULLY SUPPORTED ON PILLOWS AND AFTER ADDITIONAL DOSE OF KEPPRA. SR ON MONITOR, HR 80'S, HTN, REPORTED TO DR. PLUNKETT, NEW ORDER FOR NORVASC, BP'S CONTROLLED, HYDRALAZINE PRN, NOT GIVEN THIS SHIFT. PHOSPHORUS 2.4, KPHOS GIVEN. DOBHOFF PULLED OUT DURING TRANSPORT TO IMAGING FOR CT SCAN. WILL PLACE A NEW DOBHOFF FOLLOWING COMPLETION OF PHYSICAL THERAPY. WILL DISCONTINUE YUSUF AND PLACE A CONDOM CATH. RECTAL TUBE IN PLACE DRAINING LIQUID BROWN STOOL. CLEANED PT THIS AM OF SMEAR OF STOOL AROUND RECTAL TUBE.
--- NOTE | 2018-07-02 18:07 | NUR ---
DR. BERG AT BEDSIDE FOR EVALUATION. NEW ORDERS PROVIDED.
--- NOTE | 2018-07-02 18:21 | NUR ---
NURSING SUMMARY PLACED DOBHOFF TO RIGHT NARES, CONFIRMED PLACEMENT WITH CHEST XRAY, AND RESTARTED TUBE FEEDINGS AT 45 ML/HR. DISCONTINUED YUSUF CATHETER AND PLACED CONDOM CATHETER, PT VOIDED 100 CC AFTER REMOVAL OF YUSUF. LUNGS COARSE, SATS 88%, INCREASED OXYGEN FLOW TO 6L O2 NC, DIFFICULTY CLEARING SECRETIONS, ORAL SUCTIONING DONE, PT ATTEMPTS TO BITE THE SUCTION TUBE. DEEP NT SUCTIONING THROUGH LEFT NARES, ABLE TO SUCTION MODERATE AMOUNTS OF YELLOW SECRETIONS. OXYGEN SATS INCREASED TO 94%
--- NOTE | 2018-07-02 19:15 | NUR ---
ASSUMED CARE REPORT AND ASSESSMENT COMPLETED. PT TRACKS WITH EYES AND TURNS HEAD WHEN NAME CALLED BUT REMAINS NONVERBAL AND IS NOT FOLLOWING ANY COMMANDS. PT HAS POOR COUGH AND IS DROOLING, DEEP SUCTION COMPLETED, O2 REQUIREMENTS INCREASED FOR DAY SHIFT AND PT CURRENTLY ON 5-6L/NC WITH BED CPT Q2H PLANNED. CONDOM CATH AND RECTAL TUBE IN PLACE. TF AT GOAL OF 45 ML/HR VIA DOBHOFF AT 69 IN RT NARE. BP HYPERTENSIVE, PLAN TO MEDICATE WITH PRN HYDRALAZINE.
--- NOTE | 2018-07-02 23:04 | NUR ---
SECRETIONS NT SUCTION COMPLETED WITH MINIMAL RETURN, RT CALLED AND ABLE TO SUCTION A LARGE AMOUNT OF CLEAR, THIN SECRETIONS VIA NT SUCTION. O2 REMAINS AT 6L/MIN VIA NC AND HUMIDITY ADDED. PT DOES NOT NOD YES TO QUESTIONS TONIGHT BUT DOES TRACK AND TURN HEAD WHEN NAME CALLED.
[2018-07-03 03:55] LABS: BASOPHILS PERCENT AUTO 1 % (0-2); EOSINOPHILS ABSOLUTE AUTO 0.12 K/mm3 (0.00-0.68); EOSINOPHILS PERCENT AUTO 1 % (0-6); Hemoglobin 14.1 g/dL (13.5-17.5); IMMATURE GRAN ABSOLUTE AUTO 0.04 K/mm3 (0.00-0.10); IMMATURE GRAN PERCENT AUTO 1 % (0-1); LYMPHOCYTES ABSOLUTE AUTO 0.95 K/mm3 (0.84-5.20); LYMPHOCYTES PERCENT AUTO 11 % (21-46); MONOCYTES ABSOLUTE AUTO 1.54 K/mm3 (0.16-1.47); MONOCYTES PERCENT AUTO 18 % (4-13); Mean Corpuscular HGB 32.1 pg (26.0-34.0); Mean Corpuscular HGB Conc 32.8 g/dL (31.5-36.5); Mean Corpuscular Volume 98 fL (80-100); Mean Platelet Volume 9.2 fL (9.1-12.4); NEUTROPHILS ABSOLUTE AUTO 5.85 K/mm3 (1.96-9.15); NEUTROPHILS PERCENT AUTO 68 % (41-73); Platelet Count 320 K/mm3 (150-400); RDW Coefficient Variation 13.5 % (11.7-14.2); RDW Standard Deviation 48.9 fL (35.1-46.3); Red Blood Cell Count 4.39 M/mm3 (4.30-5.90)
[2018-07-03 04:12] LABS: Very Low Density Lipoprot Chol 19 mg/dL (6-32)
[2018-07-03 04:13] LABS: Albumin, Blood 2.3 g/dL (3.4-5.0); Anion Gap 7 mmol/L (6-16); Blood Urea Nitrogen 18 mg/dL (8-24); Bun/Creatinine Ratio 31.9 (12.0-20.0); CHOL/HDL RATIO 4.6; CO2, Blood 28 mmol/L (21-32); Chloride, Blood 110 mmol/L (98-108); Cholesterol 134 mg/dL (50-200); Creatinine, Blood 0.56 mg/dL (0.60-1.20); Glomerular Filtration Rate >60 (60-); Glucose, Blood 126 mg/dL (70-99); HDL Cholesterol 29 mg/dL (>39); Low Density Lipoprotein Chol 86 mg/dL (0-110); Phosphorus, Blood 2.8 mg/dL (2.5-4.9); Potassium, Blood 3.7 mmol/L (3.5-5.5); Sodium, Blood 145 mmol/L (136-145); Triglycerides 95 mg/dL (30-160)
--- NOTE | 2018-07-03 06:03 | NUR ---
SHIFT SUMMARY PT REMAINS NONVERBAL, NOT FOLLOWING COMMANDS. PT DOES TURN HEAD WHEN NAME CALLED, SMILES AND NODS YES ON OCCASION BUT NOT FREQUENTLY LAST NIGHT. PT WILL ALSO PULL GOWN DOWN WITH LEFT HAND; NO MOVEMENT WITH RUE. PT NOT MANAGING SECRETIONS WELL AND HAS COPIOUS AMOUNTS OF DROOL AND ORAL CARE HAS BEEN COMPLETED FREQUENTLY ALONG WITH NT SUCTION X 2. RR 25-25 AND O2 SATS 90-95% ON 5-6L/NC. TF REMAINS AT GOAL VIA DOBHOFF, NS TKO, CONDOM CATH AND RECTAL TUBE IN PLACE.
--- NOTE | 2018-07-03 08:00 | NUR ---
Recieved report from Laura WILL. Patient laying on right side. he awakens and opens eyes to verbal stimuli and no other movement or reponse. He is on 5L O2 via NC and sats 93%.He has Dobhoff to right nares and has TF Pivot 1.5 at 45ml/hr and 30ml flush Q4. He is very stiff with positioning and needs extra padding to keep in place. He has condom cath in place with yellow urine draining. He also has rectal tube in place with dark liquid stool. He has 18ga IV MURPHY dressing intact and site WNL's and is infusing NS TKO. He also has 18ga IV RFA dressing intact and site WNL's and is flushed and SL. NG sutioned and cleared breath sounds.
--- NOTE | 2018-07-03 09:20 | NUR ---
Repositioned patient and gave oral care and gave am meds. No significant changes with patient. He continues to open eyes but no other actions with stimuli.
--- NOTE | 2018-07-03 11:32 | NUR ---
Dr Barclay has been by to see patient and new lab orders. Repositioned patient. Patient opened eye with verbal stimuli lightly squeezed Dr Mayes hand no movement with right upper extremity. He remains on 5L O2 via NC and sats 94%. Tube feeding changed to Vital High Protien at 25ml/hr.
--- NOTE | 2018-07-03 13:30 | NUR ---
patient getting bath and NG suctioned and got quiet a bit of cloude red tinged secretions and he is not breathing as coarse. His sats on 5L humidified O2 are 95%. Still no purposeful movement of right UE and he was grabing with left during bath.
--- NOTE | 2018-07-03 14:53 | NUR ---
will review prognsosis and see if case management can locate a social security number. If we get SS number may be easier to find next of kin or if backround
--- NOTE | 2018-07-03 18:18 | NUR ---
No significant changes currently. PT came and sat him up at side of bed. Gave partial bath to clean up. NT suctioned and cleared thick mucus and some christine blood and he is sounding clear now. replaced condom cath jaydon came off with small size. He is gettin percussion and resting quietly.
--- NOTE | 2018-07-03 20:39 | NUR ---
PATIENT UPDATE PT REMAINS ORIENTED TO SELF. HE IS NON VERBAL BUT ABLE TO OPEN EYES WHEN TALKED WITH. HE HAD SOME OBSERVED S/SX OF PAIN EARLIER IN SHIFT. HE WAS RESTLESS, GRIMACING AND WAS ABLE TO NOD WHEN ASKED IF HE HURT. PT ALSO HAD SOME ELEVATED BLOOD PRESSURE. HE WAS PROVIDED ORDERED PAIN AND BP MEDICATIONS AND HE IS OBSERVED, AT THIS TIME, TO BE RESTING COMFORTABLY. HIS BP HAS DECREASED SYSTOCLICALLY SINCE ADMIN OF MEDS. PT CONTINUING TO REST AT THIS TIME. VITALS ARE CURRENTLY STABLE. HE WILL CONTINUE TO BE MONITORED AT THIS TIME.
[2018-07-04 03:59] LABS: BASOPHILS ABSOLUTE AUTO 0.08 K/mm3 (0.00-0.23); BASOPHILS PERCENT AUTO 1 % (0-2); EOSINOPHILS ABSOLUTE AUTO 0.05 K/mm3 (0.00-0.68); EOSINOPHILS PERCENT AUTO 1 % (0-6); Hemoglobin 13.8 g/dL (13.5-17.5); IMMATURE GRAN ABSOLUTE AUTO 0.05 K/mm3 (0.00-0.10); IMMATURE GRAN PERCENT AUTO 1 % (0-1); LYMPHOCYTES ABSOLUTE AUTO 0.88 K/mm3 (0.84-5.20); LYMPHOCYTES PERCENT AUTO 9 % (21-46); MONOCYTES ABSOLUTE AUTO 1.43 K/mm3 (0.16-1.47); MONOCYTES PERCENT AUTO 15 % (4-13); Mean Corpuscular HGB 32.1 pg (26.0-34.0); Mean Corpuscular HGB Conc 32.1 g/dL (31.5-36.5); Mean Corpuscular Volume 100 fL (80-100); Mean Platelet Volume 9.1 fL (9.1-12.4); NEUTROPHILS ABSOLUTE AUTO 7.24 K/mm3 (1.96-9.15); NEUTROPHILS PERCENT AUTO 75 % (41-73); Platelet Count 350 K/mm3 (150-400); RDW Coefficient Variation 13.6 % (11.7-14.2); RDW Standard Deviation 50.5 fL (35.1-46.3); White Blood Cell Count 9.73 K/mm3 (4.00-11.30)
[2018-07-04 04:14] LABS: Albumin, Blood 2.3 g/dL (3.4-5.0); Anion Gap 6 mmol/L (6-16); Blood Urea Nitrogen 25 mg/dL (8-24); Bun/Creatinine Ratio 40.1 (12.0-20.0); CO2, Blood 29 mmol/L (21-32); Calcium, Blood 8.3 mg/dL (8.5-10.1); Chloride, Blood 111 mmol/L (98-108); Creatinine, Blood 0.62 mg/dL (0.60-1.20); Glomerular Filtration Rate >60 (60-); Glucose, Blood 115 mg/dL (70-99); Magnesium, Blood 2.1 mg/dL (1.6-2.4); Sodium, Blood 146 mmol/L (136-145)
[2018-07-04 05:21] LABS: PCO2 Arterial 40.5 mmHg (35-45); PO2 Arterial 66.9 mmHg (80-100); pH Blood Arterial 7.49 (7.35-7.45)
--- NOTE | 2018-07-04 08:37 | NUR ---
Recieved report from Juan WILL. Patient laying on left side with HOB at 30 degrees. He is on 5L O2 via NC and sast 93%. His respirations are in the 40, with some apnic periods then into the 20 and back to the 40's. He opens eyes to verbal stimuli but not wide open as yesterday. He has slight movent to left hand and flacid on right. He has dobhoff tube to right nares and is infusing Vital HP at 45ml/hr at goal rate with 30ml water Q4. He has condom cath and has dark yellow urine output. He also has rectal tube in place with dark grn/brn stool.He has scab to nose where he has [address] from initial fall.
--- NOTE | 2018-07-04 09:30 | NUR ---
Dr Barclay place nasal trumpet in left nares for apnea and patient sats 90% on 5L humidified O2 via NC. He is slightly hypertensive and Dr Barclay would like around 160 systolic. Still no purposefull movent or following any commands. He had run of SVT 167 for about [address] Barclay relates to possible apnea where he bradys down then SVT.
--- NOTE | 2018-07-04 12:26 | NUR ---
Visited pt in ICU and spoke to RN and charge nurse re: current status, update and request for Ethics consult with second Palliative Care Consult ordered per Dr Stinson due to concerns that pt was "not making clinical progress, may be declining further overall and no family members available to help with decision making". RN reports that despite analgesics pt experiencing a lot of pain with movement. Nasal trumpet inserted this am for additional respiratory support. Pt is having difficulty clearing secretions. Aspiration risk is high. Pt is nonresponsive to verbal and light tactile stimuli. I contacted CASSIUS Barron, to discuss ethics concerns raised by Drs/Staff. Hu is familiar with pt and situation. I spoke with Dr Stinson initially as she had requested the ethics consult and relayed information from Hu Castro. Hospital staff have made attempts daily to locate additional information and family contacts without success. Dr Stinson in support of DNR/DNI status and comfort care if agreement among providers exist. I spoke to Dr Barclay and Dr Jeffries separately. Dr Jeffries was called to request consult and his input at Dr Barclay's request of me. Dr Jeffries stated he could not address pt's overall prognosis but states pt is unlikely to recover enough to return to his baseline or independent functioning. He states the CVA alone is not terminal. Per Hu Castro, if all reasonable attempts to find a surrogate decision maker have been exhausted and two physicians attest that pt is not likely to recover with current treatment then goals of tx can be transitioned to supportive, comfort care vs. current aggressive interventions/tx. All of of the information from these conversations was conveyed to Dr Jeffries, Dr Stinson, Dr Barclay and Hu Castro. Palliative Care will cont. to follow for support with care, advanced care planning and s/s management.
--- NOTE | 2018-07-04 12:30 | NUR ---
Clarified TF orders and coreect formula with Jevity 1.5. Placed patient on venti mask 10L O2 at 45% and he is currently satting 92%. He has had Code changed to DNR per ethics consult and Dr Barclay.
--- NOTE | 2018-07-04 13:40 | NUR ---
Patient sats have maintained 92-94% on 10L O2 45% venti mask and RR 30's. He is hypertensive and medicated with Hydralazine. No other changes since last note.
--- NOTE | 2018-07-04 18:24 | NUR ---
Patient rescieved full bath. He remains on venti mask at 19L O2 and sats 93%. Deep oral suction and moderate brown creamy secreations. DNR status.gave Labatelol for 170 systolic with litle success. HR 76, systolic still 170's. Patient RR 20's and clear post suction. Tube feedings continue at 45. Gave patient shave,
--- NOTE | 2018-07-04 21:28 | NUR ---
ASSUMING CARE RECEIVED PT REPORT FROM NICOLETTE BIANCHI. PT IS CURRENTLY ON VENTI MASK AT 10L FLOW W/ 45% FIO2. PT SPO2 IS IN THE MID TO HIGH 90'S AT THIS TIME. PT LUNG SOUNDS ARE COARSE. PT HAS A NASAL TRUMPET IN THE LEFT NARE FOR AIRWAY PROTECTION. PT DOES NOT APPEAR TO HAVE ANY GAG REFLEX AND REQUIRES ASSISTANCE FOR SECRETION MANAGEMENT. PT IS CURRENTLY IN NSR IN THE 80-90'S. PT IS HYPERTENSIVE IN THE 180'S. PT PROVIDED HYDRALAZINE WITH LITTLE EFFECT. PT PROVIDED FENTANYL WITH LITTLE EFFECT WELL. WILL MONITOR AND TREAT PER EMAR. PT HAS A CONDOM CATH IN PLACE, CURRENTLY PATENT AND DRAINING AT THIS TIME. PT HAS A RECTAL TUBE IN PLACE WELL. PT IS RECEIVING NS AT O. PT IS RECEIVING JEVITY 1.5 TUBE FEEDING SOLUTION AT GOAL RATE OF 40ML/HR. PT IS NON VERBAL AT THIS TIME. PT WILL OPEN EYES AND TRACK SOME MOVEMENTS ON OCCASION. PT DID SQUEEZE HANDS ON COMMAND ONCE. ASSUMING CARE OF PT AT THE TIME OF SHIFT REPORT. WILL CONTINUE TO MONITOR PT.
--- NOTE | 2018-07-04 22:53 | NUR ---
PT BELONGINGS. PT HAD A LARGE AMOUNT OF BELONGINGS IN PLASTIC BAGS AND VARIOUS CONTAINERS. SECURITY WAS CALLED TO PLACE BELONGINGS IN A LOCKED STORAGE LOCATION OUTSIDE OF ROOM. SECURITY CAME UP TO ROOM AND WAS GIVEN PT BELONGINGS. PT LABELS WERE PLACED ON BELONGINGS FOR IDENTIFICATION. BELONGINGS WERE NOT SEARCHED THROUGH BY THIS RN OR BY SECURITY AT THIS TIME.
[2018-07-05 04:14] LABS: BASOPHILS ABSOLUTE AUTO 0.08 K/mm3 (0.00-0.23); BASOPHILS PERCENT AUTO 1 % (0-2); EOSINOPHILS ABSOLUTE AUTO 0.08 K/mm3 (0.00-0.68); EOSINOPHILS PERCENT AUTO 1 % (0-6); Hematocrit 43.5 % (37.0-53.0); Hemoglobin 13.9 g/dL (13.5-17.5); IMMATURE GRAN ABSOLUTE AUTO 0.08 K/mm3 (0.00-0.10); IMMATURE GRAN PERCENT AUTO 1 % (0-1); LYMPHOCYTES ABSOLUTE AUTO 0.83 K/mm3 (0.84-5.20); LYMPHOCYTES PERCENT AUTO 6 % (21-46); MONOCYTES ABSOLUTE AUTO 1.33 K/mm3 (0.16-1.47); MONOCYTES PERCENT AUTO 10 % (4-13); Mean Corpuscular HGB 32.3 pg (26.0-34.0); Mean Corpuscular Volume 101 fL (80-100); Mean Platelet Volume 9.4 fL (9.1-12.4); NEUTROPHILS PERCENT AUTO 82 % (41-73); Platelet Count 374 K/mm3 (150-400); RDW Coefficient Variation 13.7 % (11.7-14.2); RDW Standard Deviation 51.6 fL (35.1-46.3); Red Blood Cell Count 4.31 M/mm3 (4.30-5.90)
--- NOTE | 2018-07-05 04:16 | NUR ---
DESATURATION. PT HAD AN EPISODE OF DESATURATION IN WHICH PT DESATURATED INTO THE LOW 80'S. ORAL CARE AND ORAL SUCTIONING WAS PERFORMED WITH A MODERATE AMOUNT OF SECRETIONS REMOVED. NT SUCTIONING WAS PERFORMED WITH MODERATE SECRETIONS REMOVED WELL. PT WAS SAT UP AND 02 THROUGH VENTI MASK WAS INCREASED TO A FLOW OF 15L WITH 50% FIO2. AFTER INTERVENTIONS PT SPO2 INCREASED TO THE MID TO LOW 90'S. PT SPO2 MAINTAINING AT THIS TIME. WILL CONTINUE TO MONITOR PT.
[2018-07-05 04:40] LABS: Albumin, Blood 2.2 g/dL (3.4-5.0); Anion Gap 6 mmol/L (6-16); Blood Urea Nitrogen 26 mg/dL (8-24); Bun/Creatinine Ratio 46.1 (12.0-20.0); CO2, Blood 31 mmol/L (21-32); Calcium, Blood 8.4 mg/dL (8.5-10.1); Chloride, Blood 114 mmol/L (98-108); Creatinine, Blood 0.56 mg/dL (0.60-1.20); Glomerular Filtration Rate >60 (60-); Glucose, Blood 136 mg/dL (70-99); Phosphorus, Blood 3.5 mg/dL (2.5-4.9); Potassium, Blood 4.1 mmol/L (3.5-5.5); Sodium, Blood 151 mmol/L (136-145)
--- NOTE | 2018-07-05 06:06 | NUR ---
SHIFT SUMMARY NOTE PT REMAINS ON VENTI MASK AT 15L FLOW W/ 50% FIO2. PT HAS MAINTAINED SPO2 IN THE LOW TO MID 90'S AFTER PREVIOUSLY NOTED PERIOD OF DESATURATION. PT CONTINUES TO HAVE NASAL TRUMPET TO THE LEFT NARE. PT CONTINUES TO HAVE DIFFICULTY WITH SECRETIONS AND HAS REQUIRED FREQUENT ORAL CARE AND SUCTIONING OVERNIGHT. PT YUSUF AND RECTAL TUBE REMAIN IN PLACE AND ARE PATENT AND DRAINING TO GRAVITY. PT HR HAS REMAINED IN THE 70-80'S THROUGH MUCH OF THE NIGHT. PT HAS REMAINED HYPERTENSIVE THROUGH THE NIGHT. PT HAS BEEN PROVIDED HYDRALAZINE, LABETALOL, AND FENTANYL THROUGH THE NIGHT. LABETALOL APPEARED TO BE EFFECTIVE. PT REMAINES ABLE TO OPEN EYES AND TRACK SOME MOVEMENTS. PT DID FOLLOW COMMANDS TO SQUEEZE HANDS ONCE OVER NIGHT. PT IS NON-VERBAL. PT CONTINUES TO RECEIVE TUBE FEEDING THROUGH DOBHOFF AT A RATE OF 40ML/HR. WILL REPORT OFF TO [facility] DAY SHIFT NURSE.
--- NOTE | 2018-07-05 08:58 | NUR ---
Recieved report from Chapito WILL. Patient laying in bed on left side and HOB at 30 degrees. His eye open very sluggish with constant verbal stimuli and to painful stimuli, he moved hand when ask to squeeze with left and nothing with right. He is on venti mask and was at 15L and 50% at 96% and reduced him to 10L 50% and sats 94%. He has condom cath in place and has light andrea colored urine. He has rectal tube in place with dark grn/brn liquid stool. Extremities are elevated with pillows. He has been Hypertensive and was medicated with labatelol with little success and remains in the 160-170's.
--- NOTE | 2018-07-05 10:04 | NUR ---
Medicated patient for hypertension as per aug. He continues on 10L O2 at 50% and sats 96% while resting. HR 80's and systolic 169 and MAP >65. Meds per Dobhoff.
--- NOTE | 2018-07-05 12:15 | NUR ---
Patient remains unchanged neuro. He moves left hand to face with little purpose so leaving unrestrained. He remains at 10L 45% and sats 95%. Systolic still in the 170 and will give meds per MAR. HR 80's.
--- NOTE | 2018-07-05 16:44 | NUR ---
No changes with venti mask and gtt. Changed out TF and continues at goal rate of 45ml/hr. Giving bath and changed linen. He is Hypertensive again and will medicate per MAR, HR in 80's and sats low 90%'s
--- NOTE | 2018-07-05 17:27 | NUR ---
Bath was finished and linen done , washed his hair. He is moving left arm well and reaching up for mask but does not bother it. TF continues Jevity 1.5 at 45ml/hr and NS TKO in left arm IV. His venti mask at 10L O2 at 45% and sats 94%. Opens eyes , tracks but does not follow directions. I&O's done.
--- NOTE | 2018-07-05 21:58 | NUR ---
ASSUMING CARE RECEIVED PT REPORT FROM NICOLETTE BIANCHI. PT REMAINS ON VENTI MASK AT A FLOW OF 10L W/ 50% FIO2. PT IS MAINTAINING SPO2 IN THE MID 90'S AT THIS TIME. PT CONTINUES TO REQUIRE ORAL AND NT SUCTIONING. COPIOUS MODERATELY THICK SECRETIONS REMOVED FROM BOTH ORAL AND NT SUCTIONING. LUNG SOUNDS ARE COARSE THROUGHOUT. PT IS RECEIVING TUBE FEEDING OF JEVITY 1.5 AT A GOAL RATE OF 40ML/HR. PT IS RECEIVING 200ML H2O BOLUSES Q4. DR KAPLAN CALLED AND ORDER CLARIFIED. PT DOBHOFF RESECURED TO PT'S RT CHEEK AND IS CURRENTLY @ 70 AT THE NAR. PT BP IS ELEVATED IN THE 170-180 RANGE. PT PROVIDED LABETALOL 20MG IV WITH SOME EFFECT. AFTER ADMINISTRATION PT BP DECREASED TO THE 150'S SYSTOLIC. PT HR IS STABLE IN THE 70-80 RANGE. PT HAS A CONDOM CATH IN PLACE THAT IS CURRENTLY PATENT AND DRAINING AT THIS TIME. URINE IS CLEAR AND MONSTER IN COLOR. PT HAS RECTAL TUBE IN PLACE THAT IS DRAINING BROWN LIQUID. PT IS ABLE TO OPEN EYES SPONTANIOUSLY AND IS TRACKING MOVEMENTS WITH EYES. PT IS NOT FOLLOWING COMMANDS AT THIS TIME. ASSUMED CARE OF PT AT THE TIME OF SHIFT REPORT. WILL CONTINUE TO MONITOR PT.
[2018-07-06 04:13] LABS: BASOPHILS ABSOLUTE AUTO 0.07 K/mm3 (0.00-0.23); BASOPHILS PERCENT AUTO 1 % (0-2); EOSINOPHILS ABSOLUTE AUTO 0.14 K/mm3 (0.00-0.68); EOSINOPHILS PERCENT AUTO 1 % (0-6); Hematocrit 41.6 % (37.0-53.0); IMMATURE GRAN ABSOLUTE AUTO 0.07 K/mm3 (0.00-0.10); IMMATURE GRAN PERCENT AUTO 1 % (0-1); LYMPHOCYTES ABSOLUTE AUTO 0.91 K/mm3 (0.84-5.20); LYMPHOCYTES PERCENT AUTO 7 % (21-46); MONOCYTES ABSOLUTE AUTO 0.92 K/mm3 (0.16-1.47); MONOCYTES PERCENT AUTO 7 % (4-13); Mean Corpuscular HGB 31.8 pg (26.0-34.0); Mean Corpuscular HGB Conc 31.3 g/dL (31.5-36.5); Mean Corpuscular Volume 102 fL (80-100); Mean Platelet Volume 9.4 fL (9.1-12.4); NEUTROPHILS ABSOLUTE AUTO 11.19 K/mm3 (1.96-9.15); NEUTROPHILS PERCENT AUTO 84 % (41-73); Platelet Count 398 K/mm3 (150-400); RDW Coefficient Variation 13.7 % (11.7-14.2); RDW Standard Deviation 51.8 fL (35.1-46.3); Red Blood Cell Count 4.09 M/mm3 (4.30-5.90)
[2018-07-06 04:30] LABS: Anion Gap 6 mmol/L (6-16); Blood Urea Nitrogen 27 mg/dL (8-24); Bun/Creatinine Ratio 46.9 (12.0-20.0); CO2, Blood 32 mmol/L (21-32); Calcium, Blood 8.4 mg/dL (8.5-10.1); Chloride, Blood 113 mmol/L (98-108); Creatinine, Blood 0.58 mg/dL (0.60-1.20); Glomerular Filtration Rate >60 (60-); Glucose, Blood 108 mg/dL (70-99); Magnesium, Blood 2.2 mg/dL (1.6-2.4); Phosphorus, Blood 3.2 mg/dL (2.5-4.9); Potassium, Blood 3.8 mmol/L (3.5-5.5); Sodium, Blood 151 mmol/L (136-145)
[2018-07-06 05:16] LABS: PO2 Arterial 98.5 mmHg (80-100); pH Blood Arterial 7.46 (7.35-7.45)
--- NOTE | 2018-07-06 06:31 | NUR ---
SHIFT SUMMARY NOTE PT REMAINS ON VENTI MASK WITH A 10L FLOW AT 50%. PT HAS MAINTAINED SPO2 IN THE MID 90'S THROUGHOUT THE NIGHT. PT WILL DESATURATE IF MASK IS REMOVED. PT HAS NEEDED FREQUENT ORAL AND NT SUCTIONING FOR MANAGEMENT OF SECRETIONS. PT HAS HAD COPIOUS THICK SECRETIONS REMOVED WITH SUCTIONING. PT LUNG SOUNDS REMAIN COARSE. PT IS ABLE TO OPEN EYES SPONTANIOUSLY AND WILL TRACK MOVMENTS WITH EYES AND MAKE EYE CONTACT. PT HAS NOT FOLLOWED ANY COMMANDS OVER NIGHT. PT HAS BEEN HYPERTENSIVE THROUGH THE NIGHT IN THE 160-170'S. PT WAS PROVIDED LABETELOL X1 OVERNIGHT WITH SOME EFFECT. PT HR HAS REMAINED STABLE IN THE 70-80 RANGE. PT CONTINUES TO HAVE RECTAL TUBE AND CONDOM CATH IN PLACE. PT HAS HAD ONLY A SMALL AMOUNT OF STOOL OUTPUT OVER NIGHT. PT CONDOM CATH IS PATENT AND DRAINING CLEAR MONSTER URINE. PT CONTINUES TO RECEIVE TUBE FEEDING OF JEVITY 1.5 AT GOAL RATE OF 40ML/HR AND IS RECEIVING 200ML H20 Q4 VIA DOBHOFF. WILL REPORT OFF TO ONCOMING DAY SHIFT NURSE.
--- NOTE | 2018-07-06 08:40 | NUR ---
ASSESSMENT- PT WITH EYES CLOSED, DOES OPEN EYES SPONTANEOUSLY, NO RESPONSE TO COMMANDS OR DIRECTIONS. EXPLAINED PLAN OF CARE. REACHES UP TO FACE WEAKLY. NOT PULLING AT LINES. PERRL. REPOSITIONED. OXYGEN SATURATIONS CONTINUOUSLY MONITORED, TOLERATING VENTI MASK. LUNGS WITH FEW RHONCHI. ORAL SUCTION DONE. ABDOMEN SOFT, TUBE FEEDING VIA SRIDHAR JOHNSON TUBE JEVITY 1.5 AT 40 CC/HR. UO VIA CONDOM CATH YUSUF, INTACT. RECTAL TUBE WITH SMALL AMOUNT BROWN LIQUID DRAINAGE. SBP ELEVATED-WILL RX WITH AM MEDS
--- NOTE | 2018-07-06 10:29 | NUR ---
DR. GREENWOOD HERE-UPDATED. PT UNCHANGED. CONTINUE TO MONITOR
--- NOTE | 2018-07-06 11:21 | NUR ---
Case conference with Char Conveyor Tender, Palliative Care RN, and [facility] Ethicist conducted. The principals condition, and probable trajectory discussed. A review of the pertinent [place] statutory regulations was provided with clarification and specificity around code status changes, and the legal and policy critiera for electing to discontinue or limit invasive or aggressive measures of care. It was resolved that life sustaining interventions or procedures can be withdrawn or withheld by the supervising or attending physician in cases of patient incapacitation, in the absence of a formal or default proxy and or advance care planning instrument, when the principal has been medically confirmed through two-provider attestation to be in one of the following conditions, (1) terminally ill (2) permanently unconscious (3) in a clinical state in which life sustaining measures would not benefit the patients medical condition and would cause permenant and disproportionate or serious pain or (4) the patient is suffering from an advanced stage of progressive illness that will be fatal, and the principal is consistently and permanently unable to communicate by any discernible means, to swallow food and water safely, to care for himself, recongize other people, and its very improbable that his condition will markedly improve. Thank you for this consult! Hu Castro DMin Regulatory Standars Cited in Review: ORS 127.635 (Subsections 1-3 All)
--- NOTE | 2018-07-06 12:13 | NUR ---
BP IMPROVED AFTER A.M. MED AND DOSE OF APRESOLINE. AWAKENS EASILY, STILL NO RESPONSE TO COMMANDS. DOES MOVE LEFT HAND PURPOSEFULLY. FREQUENT ORAL CARE. LUNGS COARS. NT INTACT-HAS NOT REQUIRED NT SUCTIONING
--- NOTE | 2018-07-06 14:10 | NUR ---
VSS. BACITRACIN TO NOSE, FACE CLEANED.
--- NOTE | 2018-07-06 16:15 | NUR ---
BP IMPROVED AFTER DOSE OF HYDRALAZINE. D5W STARTED PER ORDERS. MORE INTERACTIVE-DOES USE LEFT HAND PURPOSEFULLY. PRODUCTIVE SPONTANEOUS COUGH
--- NOTE | 2018-07-06 17:19 | NUR ---
A few visits today to monitor for any progress. Met with Dr. Head and Manuela Castro Director of chaplian services. Review of multiple attempts to find contacts and family. Review of patients progression and response to treament and review of diagnositcs. Goal is comprahesive assesment of pt needs. Will have care mangers do one more attemtp to contact family through the mission and law enfocement and [facility]. There has not been solid information on a vetererans servie record. Will have PT assess and work with pt to offer evervy opportunity to progress with treatment and time. This plan is in line with the [facility] directive 3. With respect to pt neruological injury and prognsis, supportive care as defined in directives 23 and 33 were reviewed to assist in providing a care plan that would facilitate a plan that supports reasonable opportunity for response or recovery of some function. The pts Neurological status may not support invasive care such as peg or trach. Will follow speech, pt/ot assessemnt for further trending data to assist physicians decision process of compassionate and holistic care.
--- NOTE | 2018-07-06 18:10 | NUR ---
VSS. TOLERATING VENTI MASK, POSITIONED TO SIT WITH HOB ELEVATED FOR AIRWAY. NEURO UNCHANGED. TUBE FEEDING JEVITY 1.5 VIA SMALL BORE FEEDING TUBE AT 40 CC/HR. CONDOM CATH, RECTAL TUBE INTACT. PIV X 2 INTACT.
--- NOTE | 2018-07-06 19:15 | NUR ---
[place] of Care: Patient sitting upright in bed, awake and responds to verbal stimuli, but not following any commands. Gross spontaneous movement of lt arm/leg, no spontaneous movement of rt arm/leg, but responds to noxious stimuli. DobHoff in place at 70cm to rt nare, infusing Jevity 1.5 at goal rate of 40ml/hr, 200ml H2O flush q4hr. Unable to assess tube feed residual r/t DobHoff, but no s/s of GI intolerance. Condom cath in place, patent and intact, draining clear yellow urine. Rectal tube in place, patent and intact, small amount of brown liquid stool in tube. O2 94% on Venti mask 10L/45%, tolerating without difficulty. Will continue to monitor for pain, safety, comfort.
[2018-07-07 03:39] LABS: BASOPHILS ABSOLUTE AUTO 0.14 K/mm3 (0.00-0.23); BASOPHILS PERCENT AUTO 1 % (0-2); EOSINOPHILS ABSOLUTE AUTO 0.25 K/mm3 (0.00-0.68); EOSINOPHILS PERCENT AUTO 2 % (0-6); Hematocrit 42.5 % (37.0-53.0); Hemoglobin 13.2 g/dL (13.5-17.5); IMMATURE GRAN PERCENT AUTO 1 % (0-1); LYMPHOCYTES ABSOLUTE AUTO 0.95 K/mm3 (0.84-5.20); LYMPHOCYTES PERCENT AUTO 6 % (21-46); MONOCYTES ABSOLUTE AUTO 1.05 K/mm3 (0.16-1.47); MONOCYTES PERCENT AUTO 7 % (4-13); Mean Corpuscular HGB 32.2 pg (26.0-34.0); Mean Corpuscular HGB Conc 31.1 g/dL (31.5-36.5); Mean Corpuscular Volume 104 fL (80-100); Mean Platelet Volume 9.6 fL (9.1-12.4); NEUTROPHILS ABSOLUTE AUTO 13.64 K/mm3 (1.96-9.15); NEUTROPHILS PERCENT AUTO 85 % (41-73); Platelet Count 494 K/mm3 (150-400); RDW Coefficient Variation 13.6 % (11.7-14.2); RDW Standard Deviation 52.1 fL (35.1-46.3); White Blood Cell Count 16.13 K/mm3 (4.00-11.30)
[2018-07-07 03:56] LABS: Anion Gap 6 mmol/L (6-16); Blood Urea Nitrogen 27 mg/dL (8-24); Bun/Creatinine Ratio 45.2 (12.0-20.0); CO2, Blood 33 mmol/L (21-32); Calcium, Blood 8.4 mg/dL (8.5-10.1); Chloride, Blood 107 mmol/L (98-108); Glomerular Filtration Rate >60 (60-); Glucose, Blood 118 mg/dL (70-99); Phosphorus, Blood 3.4 mg/dL (2.5-4.9); Potassium, Blood 3.9 mmol/L (3.5-5.5); Sodium, Blood 146 mmol/L (136-145)
--- NOTE | 2018-07-07 06:23 | NUR ---
Shift Summary: No change in neuro status throughout shift. VSS, but systolic BP elevated into 160's-170's. PRN hydralazine IV given x2, slightly helpful. Tolerating Venti mask without difficulty, 10L/45% for most of shift, turned up to 12/50% late this shift per O2-88-90%. No indication for NT suctioning this shift, only deep oral suction needed for occasional congestion. Condom cath remains patent and intact. Minimal drainage noted from rectal tube. Peripheral IV's x2 remain patent and intact. Appears calm and comfortable at this time. Will continue to monitor until report to day shift RN.
--- NOTE | 2018-07-07 07:53 | NUR ---
ASSUMED CARE: PT RESTING QUIETLY IN BED WITH VENTI MASK ON AND NASAL TRUMPET. SATTING 91% ON 12L. TUBE FEEDING IN PLACE, DISCUSSED WITH DIETARY NEED FOR DIFFERENT FORMULA DUE TO LACK OF BAGS IN HOUSE. BPS INCREASED, WILL MEDICATE ABLE. PT NONVERBAL, DOES NOT FOLLOW DIRECTIONS WELL. MOVEMENT OF LEFT ARM NOTED.
--- NOTE | 2018-07-07 08:28 | NUR ---
DR HUITRON AND DR GREENWOOD IN ROOM TO SEE PT. FREQUENT RESPIRATIONS NOTED, GUPPY BREATHING NOTED, RR 40S, ACCESSORY MUSCLE ACTIVITY. RT IN ROOM TO PERFORM ABG. CXR TO FOLLOW.
[2018-07-07 08:39] LABS: PCO2 Arterial 55.1 mmHg (35-45); PO2 Arterial 70.6 mmHg (80-100); pH Blood Arterial 7.42 (7.35-7.45)
--- NOTE | 2018-07-07 11:50 | NUR ---
PT AWAKE AND MOVING LEFT ARM, ATTEMPTED TO PULL AT FEEDING LINE. ASKED PT IF HE WAS IN PAIN, PT NODDED. FENTANYL GIVEN. PT APPEARS MORE RELAXED AT THIS TIME.
--- NOTE | 2018-07-07 13:18 | NUR ---
INCREASED RESPIRATIONS LED TO ORAL SUCTIONING AND RT SWITCHED PT TO AIRVO AT 65L AND 46% FIO2. NASAL TRUMPET REMOVED. BED CPT GOING AT THIS TIME
--- NOTE | 2018-07-07 15:16 | NUR ---
ADMITTING CAME BY TO SEE IF ID COULD BE FOUND FOR PT. IN THE PROCESS OF SEARCHING BELONGINGS FOUND THAT BOOTS AND FIRST AID KIT WERE COVERED IN MOLD. POLICE SUPERINTENDENT ADVISED TO DISPOSE OF THESE AND CONTACT PT ADVOCATE. PT'S MONEY GATHERED IN AN ENVELOPE AND COUNTED OUT 65$ WITH COLE WILL. SECURTITY TO COME COLLECT. WILL CALL PT ADVOCATE ABOUT REPLACING BELONGINGS
--- NOTE | 2018-07-07 17:26 | NUR ---
SHIFT SUMMARY: PT CURRENTLY ON 62L, 48% FIO2, SATTING AT 92%. REQUIRES FREQUENT SUCTIONING. THERE ARE PERIODS OF TIME WHERE HE APPEARS VERY TACHYPNEIC BUT SUCTIONING SEEMS TO HELP WITH THIS. PT RESTING QUIETLY, REPOSITION Q2. DC PLANNING WORKING ON FINDING FAMILY TO DISCUSS PLAN WITH. NO FURTHER NEEDS OR CONCERNS AT THIS TIME
--- NOTE | 2018-07-07 19:50 | NUR ---
ASSUMED CARE BEDSIDE REPORT RECIEVED. PT IS LAYING IN BED, CURLED UP ON LEFT SIDE. PT OPENS EYES TO VERBAL STIMULI AND TRACKS WHEN IN ROOM. PT IS NOT VERBAL AND IS UNABLE TO FOLLOW COMMANDS. MINIMAL GROSS MOVEMENT NOTED IN RIGHT EXTREMITIES. PT MOVES LEFT EXTREMITIES WELL. PT WITH AIRVO AT 60 L/MIN, FIO2 48%. PT WITH COPIOUS THICK YELLOW AND PINK SECRETIONS. PT UNABLE TO CLEAR AIRWAY. DEEP SUCTION NEEDED TO CLEAR SECRETIONS. PT WITH DOBHOFF IN PLACE WITH TF AT GOAL RATE. SUTURES INTACT TO NOSE INJURY. CONDOM CATH IN PLACE WITH YELLOW URINE OUTPUT NOTED. RECTAL TUBE IN PLACE WITH LIQUID BROWN OUTPUT NOTED. PIV'S IN PLACE WITH D5 INFUSING AT 75 ML/HR THROUGH LEFT UPPER ARM. RIGHT ARM AND HAND NOTED TO BE SWOLLEN. ELEVATED ON PILLOWS. WILL CONTINUE TO MONITOR.
[2018-07-08 03:46] LABS: BASOPHILS ABSOLUTE AUTO 0.13 K/mm3 (0.00-0.23); BASOPHILS PERCENT AUTO 1 % (0-2); EOSINOPHILS ABSOLUTE AUTO 0.19 K/mm3 (0.00-0.68); EOSINOPHILS PERCENT AUTO 1 % (0-6); Hematocrit 43.1 % (37.0-53.0); Hemoglobin 13.5 g/dL (13.5-17.5); IMMATURE GRAN ABSOLUTE AUTO 0.11 K/mm3 (0.00-0.10); IMMATURE GRAN PERCENT AUTO 1 % (0-1); LYMPHOCYTES ABSOLUTE AUTO 0.86 K/mm3 (0.84-5.20); LYMPHOCYTES PERCENT AUTO 4 % (21-46); MONOCYTES ABSOLUTE AUTO 1.23 K/mm3 (0.16-1.47); MONOCYTES PERCENT AUTO 6 % (4-13); Mean Corpuscular HGB 31.6 pg (26.0-34.0); Mean Corpuscular HGB Conc 31.3 g/dL (31.5-36.5); Mean Platelet Volume 9.9 fL (9.1-12.4); NEUTROPHILS ABSOLUTE AUTO 17.94 K/mm3 (1.96-9.15); NEUTROPHILS PERCENT AUTO 88 % (41-73); Platelet Count 502 K/mm3 (150-400); RDW Coefficient Variation 13.2 % (11.7-14.2); RDW Standard Deviation 49.5 fL (35.1-46.3); Red Blood Cell Count 4.27 M/mm3 (4.30-5.90); White Blood Cell Count 20.46 K/mm3 (4.00-11.30)
[2018-07-08 03:52] LABS: Mean Corpuscular Volume 101 fL (80-100)
[2018-07-08 04:06] LABS: Albumin, Blood 1.9 g/dL (3.4-5.0); Anion Gap 5 mmol/L (6-16); Blood Urea Nitrogen 24 mg/dL (8-24); Bun/Creatinine Ratio 43.2 (12.0-20.0); CO2, Blood 33 mmol/L (21-32); Calcium, Blood 8.1 mg/dL (8.5-10.1); Chloride, Blood 104 mmol/L (98-108); Creatinine, Blood 0.56 mg/dL (0.60-1.20); Glomerular Filtration Rate >60 (60-); Glucose, Blood 102 mg/dL (70-99); Potassium, Blood 3.9 mmol/L (3.5-5.5); Sodium, Blood 142 mmol/L (136-145)
--- NOTE | 2018-07-08 04:50 | NUR ---
DOBHOFF PT PULLED OUT DOBHOFF AND TOOK OFF AIRVO. PLACED NEW DOBHOFF PRIOR TO MORNING CHEST XRAY. CXR DONE. PT PLACED IN SOFT WRIST RESTRAINT TO LEFT WRIST. DR CUENCA CALLED TO CONFIRM DOBHOFF PLACEMENT. DOBHOFF PULLED BACK TO 62 CM AT THE NARES AND OK'D TO USE. TF RESTARTED. WILL CONTINUE TO MONITOR.
--- NOTE | 2018-07-08 05:40 | NUR ---
SHIFT SUMMARY NO ACUTE CHANGES. VITAL SIGNS HAVE REMAINED STABLE. NO CHANGES IN NEURO STATUS. PT WITH CONTINUES TO HAVE COPIOUS ORAL SECRETIONS REQUIRING FREQUENT DEEP ORAL SUCTION. AIRVO REMAINS AT 60 L/MIN AND 48% FIO2. PT PULLED OUT DOBHOFF THIS AM, NEW DOBHOFF IN PLACE, SEE PREVIOUS NOTES. TF INFUSING AT 40 ML/HR GOAL RATE. D5 INFUSING AT 75 ML/HR IN MURPHY IV. CONDOM CATH REMAINS IN PLACE WITH GOOD URINE OUTPUT THIS SHIFT. RECTAL TUBE IN PLACE WITH LIQUID BROWN OUTPUT. SOFT WRIST RESTRAINT IN PLACE TO LEFT WRIST. WILL CONTINUE TO MONITOR AND REPORT OFF TO ONCOMING RN.
--- NOTE | 2018-07-08 07:10 | NUR ---
Recieved report from Jagdeep WILL. Patient laying on left side with knees up and HOB at 30 deggress. He opens eye to loud consistent verbal stimuli, does not follow commands and is non verbal. He is on AirVo 60L 44%and sats 93%. He has Dobhoff tube in right nares infusing Jevity 1.5 at 40ml/hr with 200ml Q4 and tolerating well. He has 18gaRFA dressing intact and site WNL's and is infusing D5W at 75ml/hr. He also has 18ga IV MURPHY and dressing intact and site WNL's and was flushed and SL. He has retal tube in place with grn/brn output in small amounts. He has condom cath in place draining to gravity light andrea urine. He is febrile at 110.[address] on him. His HR 80's and systolic 150 with MAP >65. Scab on nose is looking better and sutures still intact.
--- NOTE | 2018-07-08 09:13 | NUR ---
Patient continues to rest. Deep suctione and gave meds. He only has slight gag reflex with deep suction. He remians on AirVo at 60L at 45% and sats 95%. No neuro changes. His left hand remains in restraint for line protection as he pulled Dobhoff tube when free.
--- NOTE | 2018-07-08 11:34 | NUR ---
No changes with patient, post reposition Tracy RN suctioned copius amounts of thick secretions from back of throat and restarted Percussion. He continues to be restrained left upper extremity. No neuro changes from intial assessment.
--- NOTE | 2018-07-08 13:30 | NUR ---
No significant changes with patient. He continues on 60L O2 at 44% and sasts mid 90%'s. With positioning he awkaens and looks to be interested in what you are doing or saying and goes back to sleep. He is very stiff and needs to relax when positioned. VS have glendy stable and is creeping up systolic to 160's. Rectal tube and condom cath still patent Tube Feeding Pivot 1.5 continues at 40ml/hr with 30ml water flushes Q4.
--- NOTE | 2018-07-08 13:30 | NUR ---
Dr Head and Paliative care and I went in room with family and Dr head explaned lung biopsy results. Patien and family devistated and Dr uLna answered there questions and he is giving them time to absorb. Family has not had any new questions. Family is around bed comforting patient. During this time she was desating and increased to 90% at 40L. Medicated her for shavon as reqested.
--- NOTE | 2018-07-08 15:30 | NUR ---
Patient has had family around her talking about Hx. Have decreased to to 70% at 40L and her sats 95%. She has been tolerating well and is drinking Pepsi during breaks.VSS
--- NOTE | 2018-07-08 15:30 | NUR ---
Repositioned and was given bath with linen change. No other significant changes from last note. Will be reporting off to Teresa WILL.
--- NOTE | 2018-07-08 16:09 | NUR ---
Dr Head and Paliative care and I went in room with family and Dr head explaned lung biopsy results. Patien and family devistated and Dr Luna answered there questions and he is giving them time to absorb. Family has not had any new questions. Family is around bed comforting patient. During this time she was desating and increased to 90% at 40L. Medicated her for shavon as reqested.
--- NOTE | 2018-07-08 17:15 | NUR ---
ASSUMING CARE OF PT AT THIS TIME. PT REPORT RECEIVED AT BEDSIDE WITH OFFGOING NURSE, ARIAS WILL. PT LAYING IN BED, AWAKE, EYES OPEN UPON ENTERING THE ROOM. RT AT BEDSIDE. VS STABLE - SEE VS FS. PT DOES NOT APPEAR TO BE IN DISTRESS AT THIS TIME. WILL REVIEW PLAN OF CARE.
--- NOTE | 2018-07-08 17:30 | NUR ---
ASSESSMENT PT CALM, QUIET, COOPERATIVE, RESPONDS TO VERBAL STIMULI, SPONT OPENS EYES, TRACKS VOICE WITH EYES (TRACKING VOICE), DOES NOT FOLLOW COMMANDS, DOES NOT TALK, DOES NOT NOD HEAD Y/N TO QUESTIONS. LUZ SENSATION. FINE, WEAK MOVEMENT LUE/LLE. PT IN LEFT WRIST RESTRAINT TO PROTECT LINES/CORDS/TUBES. GROSS, WEAK MOVEMENT RUE/RLE. NO S/SX OF PAIN/DISCOMFORT NOTED AT THIS TIME. LUNGS COARSE, DIMINISHED MIDDLE AND LOWER LOBES. AIRVO 60L, FIO2 44%. OXY SAT >90%. RR 20'S. DEEP ORAL SUCTION: COPIOUS AMOUNTS OF THICK YELLOW/PINK SECRETIONS. SHALLOW BREATHING. AFEBRILE. NSR. HR 80'S. BP STABLE - SEE VS FS. STRONG PULSES. WARM, PINK SKIN. EDEMA NOTED. HYPOACTIVE BT X4 QUADRANTS. ABD MILD DIST, FIRM, NONTENDER. DOBHOFF IN PLACE. TF: JEVITY 1.5 @ GOAL RATE 40 ML/HR AND 200 ML FLUSH Q4 HR. RESIDUAL 0. RECTAL TUBE: BROWN LIQUID STOOL NOTED. CONDOM CATH - YELLOW, CLEAR URINE NOTED. PIV X2. D5 @ 75 ML/HR.
--- NOTE | 2018-07-08 19:37 | NUR ---
DR. GREENWOOD INFORMED DR. GREENWOOD OF SBP IN 170'S. DR GREENWOOD ORDERED A NURSE NOTIFICATION FOR SBP UP TO 179 MM HG IS OKAY.
--- NOTE | 2018-07-08 23:20 | NUR ---
PT CARE CONDOM CATH CAME OFF. PT OCC NODDING HEAD Y/N TO SOME QUESTIONS, OCC FOLLOWING COMMANDS (ABLE TO RECORDS MANAGEMENT ASSOCIATE WITH LEFT HAND UPON REQUEST). PT NODDING HEAD YES TO WANTING MALE NURSE TO PUT ON CONDOM CATH. PT NODDED HEAD YES TO FEELING EMBARRASSED OF FEMALE COMPLETING SERGEY CARE AND PUTTING ON CONDOM CATH.
[2018-07-09 03:38] LABS: BASOPHILS ABSOLUTE AUTO 0.07 K/mm3 (0.00-0.23); BASOPHILS PERCENT AUTO 1 % (0-2); EOSINOPHILS ABSOLUTE AUTO 0.28 K/mm3 (0.00-0.68); EOSINOPHILS PERCENT AUTO 2 % (0-6); Hematocrit 35.4 % (37.0-53.0); Hemoglobin 11.5 g/dL (13.5-17.5); IMMATURE GRAN ABSOLUTE AUTO 0.05 K/mm3 (0.00-0.10); IMMATURE GRAN PERCENT AUTO 0 % (0-1); LYMPHOCYTES ABSOLUTE AUTO 1.06 K/mm3 (0.84-5.20); LYMPHOCYTES PERCENT AUTO 8 % (21-46); MONOCYTES ABSOLUTE AUTO 1.07 K/mm3 (0.16-1.47); MONOCYTES PERCENT AUTO 8 % (4-13); Mean Corpuscular HGB 31.5 pg (26.0-34.0); Mean Corpuscular HGB Conc 32.5 g/dL (31.5-36.5); Mean Platelet Volume 9.8 fL (9.1-12.4); NEUTROPHILS ABSOLUTE AUTO 10.18 K/mm3 (1.96-9.15); NEUTROPHILS PERCENT AUTO 80 % (41-73); Platelet Count 497 K/mm3 (150-400); RDW Coefficient Variation 12.9 % (11.7-14.2); RDW Standard Deviation 46.4 fL (35.1-46.3); Red Blood Cell Count 3.65 M/mm3 (4.30-5.90); White Blood Cell Count 12.71 K/mm3 (4.00-11.30)
[2018-07-09 03:39] LABS: Mean Corpuscular Volume 97 fL (80-100)
[2018-07-09 03:54] LABS: Albumin, Blood 1.6 g/dL (3.4-5.0); Anion Gap 6 mmol/L (6-16); Blood Urea Nitrogen 20 mg/dL (8-24); Bun/Creatinine Ratio 35.6 (12.0-20.0); CO2, Blood 32 mmol/L (21-32); Calcium, Blood 7.8 mg/dL (8.5-10.1); Chloride, Blood 101 mmol/L (98-108); Creatinine, Blood 0.56 mg/dL (0.60-1.20); Glomerular Filtration Rate >60 (60-); Glucose, Blood 117 mg/dL (70-99); Phosphorus, Blood 2.9 mg/dL (2.5-4.9); Potassium, Blood 3.4 mmol/L (3.5-5.5); Sodium, Blood 139 mmol/L (136-145)
--- NOTE | 2018-07-09 04:40 | NUR ---
DR. CUENCA INFORMED DR. CUENCA OF AM POTASSIUM [facility]. DR. CUENCA ORDERED KCL 40 MEQ PER DOBHOFF. WAITING FOR VERIFICATION OF MEDICATION FROM PHARMACY AT THIS TIME.
--- NOTE | 2018-07-09 04:43 | NUR ---
SHIFT ASSESSMENT NO ACUTE CHANGES NOTED T/O SHIFT. PT CALM, QUIET, COOPERATIVE, RESPONDS TO VERBAL STIMULI, SPONT OPENS EYES, TRACKS VOICE WITH EYES (TRACKING VOICE), DOES NOT TALK. CURRENTLY PT NOD FOLLOWING COMMANDS, BUT OCC FOLLOWED COMMANDS (ABLE TO CEREAL MAKER WITH LEFT HAND UPON REQUEST) EARLIER IN SHIFT. CURRENTLY PT NOT NODDING HEAD Y/N TO QUESTIONS, BUT OCC NODDED HEAD Y/N TO SOME QUESTIONS EARLIER IN SHIFT. LUZ SENSATION. FINE, WEAK MOVEMENT LUE/LLE. PT IN LEFT WRIST RESTRAINT TO PROTECT LINES/CORDS/TUBES. PT PULLING AGAINST RESTRAINT T/O SHIFT. GROSS, WEAK MOVEMENT RUE/RLE. NO S/SX OF PAIN/DISCOMFORT NOTED T/O SHIFT. LUNGS COARSE, DIMINISHED MIDDLE AND LWOER LOBES. AIRVO CURRENTLY 60L, FIO2 45%. CONT TO TITRATE FIO2 TO MAINTAIN SPO2 90% AND GREATER. RR 20'S TO 30'S. DEEP ORAL SUCTION: COPIOUS AMOUNTS OF THICK YELLOW/PINK SECRETIONS. PT GAGGING AND COUGHING WITH DEEP ORAL SUCTIONING. SHALLOW BREATHING. AFEBRILE. NSR. HR 60'S TO 80'S. BP STABLE - SEE VS FS. STRONG PULSES. WARM, PINK SKIN. EDEMA NOTED. HYPOACTIVE BT X4 QUADRANTS. ABD MILD DIST, FIRM, NONTENDER. DOBHOFF IN PLACE. TF: JEVITY 1.5 @ GOAL RATE 40 ML/HR AND 200 ML FLUSH Q4 HR. RESIDUAL 0. RECTAL TUBE: MINIMAL BROWN LIQUID STOOL NTOED. CONDOM CATH - DARK, YELLOW URINE NOTED. PIV X2. D5 @ 75 ML/HR. WILL CONT TO MONITOR PT AND WILL PROVIDE BEDSIDE REPORT TO ONCOMING NURSE.
--- NOTE | 2018-07-09 07:18 | NUR ---
Recieved report from Teresa WILL. Patient on right side with HOB at 30 degress. He opens eye to verbal stimuli and tracks slight with movement, when speaking to him he opens eyes brighter. He does not follow commands or give any type of response. He is on AirVo at 60L and 45% and sats 93%. He has 18ga IV LFA dressing intact and site WNL's and is fusing D5 at 75ml/hr. He also has 18ga IV in RFa dressing intact and site WNL's and is flushed and SL. He has condome cath that was replaced last nite and is draining to gravity. Rectal tube remains in place with minimal output. He has restraint to LUE as he pulls at lines and tubes.
--- NOTE | 2018-07-09 09:30 | NUR ---
Patient recieved bath and then placed in chair. He tolerated well. Replaced condom cath as it came off during transfer. No changes in AirVo and Dr Sidhu stopped D5 and reduced free water in TF to 100ml/hr, sodium id been lower.
--- NOTE | 2018-07-09 11:30 | NUR ---
Patient remains in chair and PT was working with patient and he did well with left side and we stool briefly with gait belt and two person and was unable to bear weight. He was able to lift left arm and shake hand and was clearer when looking at you. He remains on 60L 45% and sats mid 90%. DR Espinosa was in to see him and started Bowel protocol. for poor stool output nbo real changes.
--- NOTE | 2018-07-09 13:30 | NUR ---
No significant changes from last note and patient currently resting and no signs of discomfort.
--- NOTE | 2018-07-09 15:30 | NUR ---
Moved patient back to bed. Replaced condom cath again and was pull during transfer. He has short episode of desating post oral care and transfer and took about 10 minutes to rise above 88% and is currently 92%. Changed gown and linen and condom cath that came off leaked. VSS. He seems a little less responsive from earlier and may have worn him out. He is currently resting.
--- NOTE | 2018-07-09 17:30 | NUR ---
No significant changes from last note, he continues to rest. Changed out TF set and hung new formula. Rectal tube bag was leaking and changed it out.
--- NOTE | 2018-07-09 19:15 | NUR ---
ASSUMING CARE OF PT AT THIS TIME. PT REPORT RECEIVED AT BEDSIDE WITH OFFGOING NURSE NICOLETTE BIANCHI. PT LAYING IN BED, AWAKE UPON ENTERING THE ROOM. VS STABLE - SEE VS FS. PT DOES NOT APPEAR TO BE IN DISTRESS AT THIS TIME. WILL REVIEW PLAN OF CARE.
--- NOTE | 2018-07-09 19:30 | NUR ---
ASSESSMENT PT CALM, QUIET, COOPERATIVE, RESPONDS TO VERBAL STIMULI, SPONT OPENS EYES, TRACKS VOICE WITH EYES (TRACKING VOICE), DOES NOT FOLLOW COMMANDS, DOES NOT TALK, DOES NOT NOD HEAD Y/N TO QUESTIONS. COUGHING AND GAGGING WITH DEEP SUCTION. LUZ SENSATION. FINE, WEAK MOVEMENT LUE/LLE. PT IN LEFT WRIST RESTRAINT TO PROTECT LINES/CORDS/TUBES. GROSS, WEAK MOVEMENT RUE/RLE. NO S/SX OF PAIN/DISCOMFORT NOTED AT THIS TIME. LUNGS COARSE, DIMINISHED MIDDLE AND LOWER LOBES. AIRVO 60L, FIO2 45%. OXY SAT >90%. RR 20'S. DEEP ORAL SUCTIONA: COPIOUS AMOUNTS OF THICK PINK SECRETIONS. SHALLOW BREATHING. AFEBRILE. NSR. HR 70'S. BP STABLE - SEE VS FS. SHALLOW BREATHING. STRONG PULSES. WARM, PINK SKIN. EDEMA NOTED. HYPOACTIVE BT X4 QUADRANTS. ABD MILD DIST, FIRM, NONTENDER. DOBHOFF IN PLACE. TF: JEVITY 1.5 @ GOAL RATE 40 ML/HR AND 30ML FLUSH Q4 HR. RESIDUAL O. RECTAL TUBE: MINIMAL AMOUNTS OF BROWN LIQUID STOOL NTOED. CONDOM CATH - YELLOW, CLEAR URINE NOTED. PER REPORT FROM NICOLETTE BIANCHI - NEW CONDOM CATH PLACED THIS AM. PIV X2 - SL.
[2018-07-10 04:01] LABS: BASOPHILS ABSOLUTE AUTO 0.09 K/mm3 (0.00-0.23); BASOPHILS PERCENT AUTO 1 % (0-2); EOSINOPHILS ABSOLUTE AUTO 0.29 K/mm3 (0.00-0.68); EOSINOPHILS PERCENT AUTO 3 % (0-6); Hematocrit 37.5 % (37.0-53.0); Hemoglobin 12.1 g/dL (13.5-17.5); IMMATURE GRAN ABSOLUTE AUTO 0.04 K/mm3 (0.00-0.10); IMMATURE GRAN PERCENT AUTO 0 % (0-1); LYMPHOCYTES ABSOLUTE AUTO 1.13 K/mm3 (0.84-5.20); LYMPHOCYTES PERCENT AUTO 10 % (21-46); MONOCYTES ABSOLUTE AUTO 1.14 K/mm3 (0.16-1.47); MONOCYTES PERCENT AUTO 10 % (4-13); Mean Corpuscular HGB 31.7 pg (26.0-34.0); Mean Corpuscular HGB Conc 32.3 g/dL (31.5-36.5); Mean Corpuscular Volume 98 fL (80-100); NEUTROPHILS PERCENT AUTO 77 % (41-73); Platelet Count 672 K/mm3 (150-400); RDW Coefficient Variation 12.9 % (11.7-14.2); RDW Standard Deviation 46.5 fL (35.1-46.3); Red Blood Cell Count 3.82 M/mm3 (4.30-5.90); White Blood Cell Count 11.59 K/mm3 (4.00-11.30)
[2018-07-10 04:14] LABS: Alanine Aminotransfer (ALT/SGP 53 U/L (12-78); Albumin, Blood 1.8 g/dL (3.4-5.0); Albumin/Globulin Ratio 0.4 (0.8-1.8); Alk Phos 149 U/L (50-136); Anion Gap 7 mmol/L (6-16); Aspartate Aminotrans (AST/SGOT 37 U/L (12-37); Bilirubin, Total 0.6 mg/dL (0.1-1.0); Blood Urea Nitrogen 21 mg/dL (8-24); Bun/Creatinine Ratio 35.2 (12.0-20.0); CO2, Blood 32 mmol/L (21-32); Calcium, Blood 8.3 mg/dL (8.5-10.1); Chloride, Blood 102 mmol/L (98-108); Globulin, Blood 4.5 g/dL (2.2-4.0); Glomerular Filtration Rate >60 (60-); Glucose, Blood 106 mg/dL (70-99); Phosphorus, Blood 3.1 mg/dL (2.5-4.9); Sodium, Blood 141 mmol/L (136-145); Total Protein, Blood 6.3 g/dL (6.4-8.2)
--- NOTE | 2018-07-10 04:43 | NUR ---
SHIFT ASSESSMENT PT CALM, QUIET, COOPERATIVE, RESPONDS TO VERBAL STIMULI, SPONT OPENS EYES, TRACKS VOICE WITH EYES (TRACKING VOICE), DOES NOT FOLLOW COMMANDS, DOES NOT TALK, DOES NOT NOD HEAD Y/N TO QUESTIONS. COUGHING AND GAGGING WITH DEEP SUCTION. LUZ SENSATION. FINE, WEAK MOVEMENT LUE/LLE. PT IN LEFT WRIST RESTRAINT TO PROTECT LINES/CORDS/TUBES. GROSS, WEAK MOVEMENT RUE/RLE. LESS MOVEMENT NOTED. INCREASED TREMORS OF RUE NOTED T/O SHIFT. NO S/SX OF PAIN/DISCOMFORT T/O SHIFT. LUNGS COARSE, DIMINISHED MIDDLE AND LOWER LOBES. AIRVO 60L, 45%. OXY SAT REMAINED 88% AND GREATER T/O SHIFT. RR 20'S TO 30'S. DEEP ORAL SUCTION: MODERATE TO COPIOUS AMOUNTS OF THICK PINK SECRETIONS. LESS SECRETIONS NOTED THIS AM. SHALLOW BREATHING. TMAX 99.8. CURRENTLY PT IS AFEBRILE. NSR. HR 70'S TO 80'S. BP STABLE - SEE VS FS. STRONG PULSES. WARM, PINK SKIN. EDEMA NOTED. HYPOACTIVE BT X4 QUADRANTS. ABD MILD DIST, FIRM, NONTENDER. DOBHOFF IN PLACE. TF: JEVITY 1.5 @ GOAL RATE 40 ML/HR AND 30 ML FLUSH Q4 HR. RESIDUAL 0. RECTAL TUBE: MINIMAL AMOUNTS OF BROWN LIQUID STOOL NOTED. CONDOM CATH - DARK YELLOW, CLEAR URINE NOTED. PIV X2 - SL. WILL CONT TO MONITOR PT AND WILL PROVIDE BEDSIDE REPORT TO ONCOMING NURSE THIS AM.
--- NOTE | 2018-07-10 07:30 | NUR ---
ASSUMED CARE: PT RESTING QUIETLY IN BED, AIRVO IN PLACE AT 60L WITH 45% FIO2. ORAL SUCTIONING NEEDED FREQUENTLY, PINK SECRETIONS. MUSCLE TWITCHING NOTED RIGHT NECK AND CHEST. RESTRAINT IN PLACE LEFT WRIST TO PREVENT PULLING OF LINES AND TUBES. DR HUITRON IN TO SEE PT. VSS. NO FURTHER NEEDS OR CONCERNS AT THIS TIME
--- NOTE | 2018-07-10 12:18 | NUR ---
PHYSICAL THERAPY ASSISTED WITH BATH AND GETTING PT UP TO CHAIR. THERAPIST COMMENTED THAT PT WAS LESS ALERT AND HELPFUL TODAY. PT CONTINUES TO OPEN EYES AND MOVE LEFT ARM AND LEG FREELY, RIGHT ARM AND LEG MOVEMENT NOTED LOCALIZING, PULLS AWAY WHEN STIMULATED. PT APPEARS DROWSY AND RESTING IN CHAIR AT THIS TIME. BLINDS OPEN TO ATTEMPT STIMULATION FOR ALERTNESS
--- NOTE | 2018-07-10 14:11 | NUR ---
DR KAPLAN IN TO SEE PT. HE IS AWARE OF PT'S MUSCLE TWITCHING THAT HE FEELS MAY BE HICCUPS. ALSO DISCUSSED LACK OF BM AND SODIUM LEVEL IN RELATION TO FREE WATER FLUSHES. SEE NEW ORDERS
--- NOTE | 2018-07-10 15:03 | NUR ---
DOBHOFF BEGAN TO PULL OUT WITH TRANSFER BACK TO BED. ADVANCED TO 55 AND CHECKED PLACEMENT WITH XRAY. HYDROELECTRIC MACHINERY MECHANIC CONFIRMED, ADVANCED TO 65.
--- NOTE | 2018-07-10 15:32 | NUR ---
Review of plan for care decisions with beef cattle farm manager, rn intensive care unit, nursing and automotive electrical helper. Review of guardianship versus physician guided care.
--- NOTE | 2018-07-10 17:47 | NUR ---
SHIFT SUMMARY: PT RESTING QUIETLY IN BED. AIRVO AT 60L, 35% FIO2. DOBHOFF IN PLACE AT 65, SECURED TO CHEEK WITH TAPE. FREQUENT SUCTIONING WITH PINK SPUTUM. PALLIATIVE CARE ON CASE WITH DC PLANNING TO FIND FAMILY AND DETERMINE FURTHER OPTIONS.
--- NOTE | 2018-07-10 19:40 | NUR ---
ASSUMED CARE BEDSIDE REPORT RECIEVED. PT IS LAYING IN BED, SOMNULENT, BUT AROUSES TO VERBAL STIMULI. PT OPENS EYES AND TRACKS WHEN IN THE ROOM, BUT IS NONVERBAL. PT UNABLE TO FOLLOW COMMANDS. SOFT WRIST RESTRAINT IN PLACE TO LEFT WRIST, PT REACHES FOR DOBHOFF/AIRVO. AIRVO AT 60L, FIO2 33%. VITAL SIGNS STABLE. DOBHOFF IN PLACE WITH TF AT 40 ML/HR GOAL RATE. CONDOM CATH IN PLACE WITH YELLOW OUTPUT NOTED. RECTAL TUBE IN PLACE WITH LIQUID BROWN OUTPUT NOTED. PT WITH TWITCHING/JERKING MOVEMENT NOTED TO RIGHT ARM/SHOULDER. WILL CONTINUE TO MONITOR.
[2018-07-11 03:39] LABS: BASOPHILS ABSOLUTE AUTO 0.12 K/mm3 (0.00-0.23); BASOPHILS PERCENT AUTO 1 % (0-2); EOSINOPHILS ABSOLUTE AUTO 0.24 K/mm3 (0.00-0.68); EOSINOPHILS PERCENT AUTO 2 % (0-6); Hematocrit 40.2 % (37.0-53.0); IMMATURE GRAN ABSOLUTE AUTO 0.03 K/mm3 (0.00-0.10); IMMATURE GRAN PERCENT AUTO 0 % (0-1); LYMPHOCYTES ABSOLUTE AUTO 1.14 K/mm3 (0.84-5.20); LYMPHOCYTES PERCENT AUTO 11 % (21-46); MONOCYTES ABSOLUTE AUTO 1.28 K/mm3 (0.16-1.47); MONOCYTES PERCENT AUTO 12 % (4-13); Mean Corpuscular HGB 31.5 pg (26.0-34.0); Mean Corpuscular HGB Conc 32.3 g/dL (31.5-36.5); Mean Corpuscular Volume 97 fL (80-100); Mean Platelet Volume 9.7 fL (9.1-12.4); NEUTROPHILS ABSOLUTE AUTO 7.67 K/mm3 (1.96-9.15); NEUTROPHILS PERCENT AUTO 73 % (41-73); Platelet Count 759 K/mm3 (150-400); RDW Standard Deviation 46.3 fL (35.1-46.3); Red Blood Cell Count 4.13 M/mm3 (4.30-5.90); White Blood Cell Count 10.48 K/mm3 (4.00-11.30)
[2018-07-11 04:17] LABS: Anion Gap 6 mmol/L (6-16); Blood Urea Nitrogen 19 mg/dL (8-24); Bun/Creatinine Ratio 29.9 (12.0-20.0); CO2, Blood 34 mmol/L (21-32); Calcium, Blood 8.3 mg/dL (8.5-10.1); Chloride, Blood 104 mmol/L (98-108); Creatinine, Blood 0.64 mg/dL (0.60-1.20); Glomerular Filtration Rate >60 (60-); Glucose, Blood 109 mg/dL (70-99); Magnesium, Blood 2.3 mg/dL (1.6-2.4); Phosphorus, Blood 3.3 mg/dL (2.5-4.9); Potassium, Blood 4.1 mmol/L (3.5-5.5); Sodium, Blood 144 mmol/L (136-145)
--- NOTE | 2018-07-11 05:58 | NUR ---
SHIFT SUMMARY NO ACUTE CHANGES THIS SHIFT. PT REMAINS UNCHANGED NEUROLOGICALLY. PT REMAINS ON AIRVO AT 60L, FIO2 33%. VITAL SIGNS STABLE. DOBHOFF REMAINS IN PLACE WITH TF AT 40 ML/HR GOAL RATE. IV'S SALINE LOCKED. CONDOM CATH IN PLACE WITH GOOD URINE OUTPUT THIS SHIFT. RECTAL TUBE WITH DECREASED, THICKENING OUTPUT. RECTAL TUBE DC'D THIS AM. SOFT WRIST RESTRAINT IN PLACE TO LEFT WRIST. PT WITH LARGE AMOUNTS OF ORAL SECRETIONS NEEDING FREQUENT SUCTION/ORAL CARE. WILL CONTINUE TO MONITOR AND REPORT OFF TO ONCOMING RN.
--- NOTE | 2018-07-11 07:31 | NUR ---
ASSUMED CARE: PT RESTING QUIETLY AT THIS TIME. AIRVO AT 60L, 33% FIO2. DOBHOFF FOR FEEDING AT 65CM. LEFT ARM RESTRAINED DUE TO ATTEMPTING TO PULL VITAL LINES. CONDOM CATH IN PLACE. NO FURTHER NEEDS OR CONCERNS AT THIS TIME.
--- NOTE | 2018-07-11 08:06 | NUR ---
TRANSFERRED CARE TO TAMMI WILL.
--- NOTE | 2018-07-11 12:52 | NUR ---
repositioned pt to other side. opens eyes, no other response. call light in reach, restraint on left arm for safety. condom cath was replaced this am, draining well.
--- NOTE | 2018-07-11 14:22 | NUR ---
Dr. Barclay in to see pt. pt has been turned, opens eyes, and continues with twitch, but no other acute chanes in condition. call light in reach.
--- NOTE | 2018-07-11 15:02 | NUR ---
report given to Glenys WILL. will transfer pt to 350 via wheelchair.
--- NOTE | 2018-07-11 15:27 | NUR ---
report given to oncoming nurse. joann started. no further changes. call light in reach.
--- NOTE | 2018-07-11 15:45 | NUR ---
ASSUMPTION OF CARE PATIENT LYING IN BED QUIETLY UPON ENTERING IN ROOM. PATIENT RESPONDS TO VOICE AND TRACKS NURSE WITH EYES. PATIENT DOES NOT FOLLOW COMMANDS. PATIENT NONVERBAL. MUSCLE JERKS NOTED. WEAK MOVEMENTS TO LEFT SIDE OF BODY. GROSS MOVEMENTS TO RIGHT SIDE OF BODY. NO SIGNS OF PAIN NOTED. PATIENT HAS TEMP OF 99.6 DEGREES FAHRENHEIT. PATIENT SATTING WELL ON AIRVO 60 L AND 33% FIO2. LUNG SOUNDS ARE COARSE T/O. PATIENT HAS SOME THICK, CLEAR ORAL SECRETIONS. PATIENT TACHY AT TIMES. PATIENT IS IN NSR, HR IN THE 80S. BP STABLE. PULSES STRONG. TRACE EDEMA NOTED TO BUES. DOBHOFF INFUSING JEVITY 1.5 AT GOAL RATE OF 40 MLS/ HOUR WITH 30 ML WATER FLUSH Q4H. PATIENT'S LAST BM ON THE . CONDOM CATH DRAINING ADEQUATE AMOUNT OF DARK YELLOW URINE. SERGEY AREA REDDENED- CALAZIME APPLIED. SCAB NOTED TO LEFT KNEE, NOSE AND R HIP. SUTURES ALSO NOTED TO NOSE. PICS IN PT CHART. MEPILEX TO HIP. NS INFUSING TKO. BED LOW, CALL LIGHT IN REACH. WILL CONTINUE TO MONITOR PATIENT FREQUENTLY THROUGHOUT SHIFT.
--- NOTE | 2018-07-11 16:25 | NUR ---
BIOX DROPPED TO 84% SX'D THICK WHITE SECRETIONS FROM BACK OF THROAT
--- NOTE | 2018-07-11 18:59 | NUR ---
REPORT GIVEN TO ONCOMING GRANITE FABRICATOR NURSE.
--- NOTE | 2018-07-11 19:20 | NUR ---
ASSUMED CARE BEDSIDE REPORT RECIEVED. PT IS LAYING IN BED ON LEFT SIDE. PT OPENS EYES TO VERBAL STIMULI, BUT IS NON VERBAL. PT TRACKS WHEN IN ROOM. PT UNABLE TO FOLLOW ANY COMMANDS. PT WITH JERKING MOTION NOTED TO UPPER EXTREMITIES. AIRVO AT 60L, FIO2 33%. VITAL SIGNS STABLE. DOBHOFF IN PLACE WITH TF AT 40 ML/HR GOAL RATE. CONDOM CATH IN PLACE WITH YELLOW OUTPUT NOTED. SOFT LEFT WRIST RESTRAINT IN PLACE. NS INFUSING TKO. PT WITH COPIOUS ORAL SECRETIONS WITH DEEP SUCTION. WILL CONTINUE TO MONITOR.
--- NOTE | 2018-07-12 05:44 | NUR ---
SHIFT SUMMARY NO ACUTE CHANGES. PT UNCHANGED NEUROLOGICALLY. PT APPEARS TO BE RESTING COMFORTABLEY AT THIS TIME. PT REMAINS ON AIRVO AT 60L, FIO2 33%. VITAL SIGNS HAVE REMAINED STABLE. RESTRAINT TO LEFT WRIST REMAINS IN PLACE. DOBHOFF REMAINS IN PLACE WITH TF AT 40 ML/HR GOAL RATE. CONDOM CATH REMAINS IN PLACE WITH GOOD URINE OUTPUT THIS SHIFT. FREQUENT ORAL SUCTION NEEDED. WILL CONTINUE TO MONITOR AND REPORT OFF TO ONCOMING RN.
--- NOTE | 2018-07-12 08:30 | NUR ---
INITIAL ASSESSMENT PATIENT RESTING QUIETLY IN BED WITH EYES OPEN UPON ENTERING ROOM. PATIENT IS RESPONSIVE TO VERBAL STIMULI BY TRACKING WITH EYES. PATIENT WITHDRAWS FROM TOUCH WITH ALL EXTREMITIES. RIGHT SIDE MUCH WEAKER THAN LEFT. PATIENT IS NOT FOLLOWING ANY COMMANDS. MUSCLE JERKING/ TWITCHING NOTED. PATIENT NONVERBAL. NO MATTER WHICH WAY PATIENT IS TURNED HE ALWAYS AUTOMATICALLY TRIES TO TURN BACK TO THE L SIDE. PATIENT APPEARS TO BE TEARFUL WITH SUCTIONING. PATIENT HAS NO SIGNS OF PAIN OR DISCOMFORT NOTED AT THIS TIME. PATIENT AFEBRILE. LEFT SOFT WRIST RESTRAINT ON PATIENT CONTINUES TO TRY AND PULL OFF O2 AND PULL OUT DOBHOFF WELL OTHER IMPORTANT LINES AND CORDS. PATIENT SATTING WELL ON AIRVO 60L AND 33% FIO2. RR SHOW TACHYPNEA ALTHOUGH IT IS PICKING UP THE PATIENT'S JERKY MOVEMENTS. LUNGS ARE DIMINISHED T/O. PATIENT HAVING MODERATE AMOUNT OF THICK, WHITE SPUTUM SUCTIONED FROM BACK OF MOUTH. CPT ORDERED. PATIENT IN NSR, HR IN THE 80S. BP STABLE. TRACE EDEMA NOTED TO BUES. PULSES STRONG. DOBHOFF IN PLACE. JEVITY 1.5 INFUSING AT GOAL RATE OF 40 MLS/ HOUR WITH 30 ML WATER FLUSH Q4H. CONDOM CATH DRAINING ADEQUATE AMOUNT OF DARK YELLOW URINE. SCROTAL EDEMA NOTED. HEELS REDDENED- MEPILEX APPLIED. SCAB TO L KNEE, NOSE AND R HIP. MEPILEX TO RIGHT HIP. SUTURES TO NOSE. SERGEY AREA REDDENED/ RASHY- CALAZIME CREAM BEING APPLIED. NS INFUSING TKO. BED LOW, CALL LIGHT IN REACH. WILL CONTINUE TO MONITOR PATIENT FREQUENTLY THROUGHOUT SHIFT.
--- NOTE | 2018-07-12 12:18 | NUR ---
PHYSICAL THERAPY IN ROOM WITH PATIENT.
--- NOTE | 2018-07-12 12:42 | NUR ---
PATIENT RESTING IN BED QUIETLY WITH NO SIGNS OF PAIN OR DISCOMFORT. PATIENT HAS TEMP OF 99.6 DEGREES FAHRENHEIT. PATIENT HAS LEFT SIDED GAZE, TRACKS SOME OF THE TIME. PATIENT REMAINS SATTING WELL ON SAME AIRVO SETTINGS. PATIENT IN SR, HR IN THE 70S. BP STABLE. LUNG SOUNDS COARSE THROUGHOUT. MODERATE AMOUNT OF THICK, PINK ORAL SECRETIONS BEING SUCTIONED. MOM GIVEN PATIENT'S LAST BM RECORDED ON THE June. NO OTHER ACUTE CHANGE TO NOTE ON AT THIS TIME. WILL CONTINUE TO MONITOR.
[2018-07-12 14:58] LABS: Vancomycin, Trough 12.1 ug/mL (5.0-10.0)
--- NOTE | 2018-07-12 16:00 | NUR ---
PATIENT SLEEPING SOUNDLY UPON ENTERING ROOM. PATIENT HAS TEMP OF 99.3 DEGREES FAHRENHEIT. NO CHANGE IN NEURO STATUS. PATIENT REMAINS SATTING WELL ON SAME AIRVO SETTINGS. PATIENT IN SR, HR 70S TO 80S. BP STABLE. PATIENT HAD BED BATH. CONDOM CATH REMOVED, ARE CLEANSED VERY WELL, POWDER PLACED AND ATTENDS PLACED INSTEAD OF CONDOM CATH BECAUSE PENIS IS RED AND IRRITATED LOOKING. NO OTHER ACUTE CHANGES TO NOTE ON AT THIS TIME. WILL CONTINUE TO MONITOR.
--- NOTE | 2018-07-12 18:18 | NUR ---
SHIFT SUMMARY PATIENT NAPPED ON AND OFF THROUGHOUT SHIFT. NO CHANGE IN NEURO STATUS. PATIENT HAD TMAX OF 99.6 DEGREES FAHRENHEIT. PATIENT HAD NO SIGNS OF PAIN T/O SHIFT. PATIENT CONTINUES TO HAVE SLIGHT MUSCLE TREMORS AT TIMES. PATIENT REMAINS SATTING WELL ON AIRVO 60 L AND 33% FIO2. LUNGS SOUNDS REMAIN COARSE T/O. PATIENT CONTINUES TO HAVE MODERATE AMOUNTS OF THICK, PINK ORAL SECRETIONS. PATIENT HAS REMAINS IN SR, HR 70S TO 80S. BP STABLE. TF REMAINS INFUSING AT GOAL. PATIENT DID NOT HAVE BM THIS SHIFT. MOM GIVEN. CONDOM CATH CHANGED TO ATTENDS PENIS VERY PINK AND IRRITATED LOOKING. PATIENT RECEIVED BED BATH THIS SHIFT. NS INFUSING TKO. PHYSICAL THERAPY WORKED WITH PATIENT AND SAT PATIENT AT SIDE OF BED FOR BIT WITH HELP OF NURSE. NO OTHER EVENTS TO NOTE ON AT THIS TIME. BED LOW, CALL LIGHT IN REACH. WILL CONTINUE TO MONITOR PATIENT FREQUENTLY T/O SHIFT.
--- NOTE | 2018-07-12 19:30 | NUR ---
ASSUMED CARE BEDSIDE REPORT RECIEVED. PT IS RESTING QUIETLY. PT OPENS EYES TO VERBAL STIMULI. PT NONVERBAL, UNABLE TO FOLLOW COMMANDS. WEAKNESS WITH MOVEMENT IN LEFT EXTREMITIES. WRIST RESTRAINT IN PLACE TO LEFT WRIST. PT ON AIRVO AT 60L, FIO2 33%. VITAL SIGNS STABLE. NS INFUSING TKO. DOBHOFF IN PLACE WITH TF AT 40 ML/HR GOAL RATE. PT INCONTINENT OF URINE, CONDOM CATH DC'D TODAY DUE TO PENIS INFLAMMATION. ATTENDS IN PLACE AT THIS TIME. WILL CONTINUE TO MONITOR.
[2018-07-13 04:16] LABS: BASOPHILS ABSOLUTE AUTO 0.15 K/mm3 (0.00-0.23); BASOPHILS PERCENT AUTO 1 % (0-2); EOSINOPHILS ABSOLUTE AUTO 0.31 K/mm3 (0.00-0.68); EOSINOPHILS PERCENT AUTO 2 % (0-6); Hemoglobin 13.1 g/dL (13.5-17.5); IMMATURE GRAN ABSOLUTE AUTO 0.06 K/mm3 (0.00-0.10); IMMATURE GRAN PERCENT AUTO 1 % (0-1); LYMPHOCYTES ABSOLUTE AUTO 1.48 K/mm3 (0.84-5.20); LYMPHOCYTES PERCENT AUTO 12 % (21-46); MONOCYTES ABSOLUTE AUTO 1.65 K/mm3 (0.16-1.47); MONOCYTES PERCENT AUTO 13 % (4-13); Mean Corpuscular HGB 31.6 pg (26.0-34.0); Mean Corpuscular HGB Conc 31.2 g/dL (31.5-36.5); Mean Platelet Volume 10.1 fL (9.1-12.4); NEUTROPHILS ABSOLUTE AUTO 9.05 K/mm3 (1.96-9.15); NEUTROPHILS PERCENT AUTO 71 % (41-73); Platelet Count 954 K/mm3 (150-400); RDW Coefficient Variation 13.1 % (11.7-14.2); RDW Standard Deviation 49.1 fL (35.1-46.3); Red Blood Cell Count 4.14 M/mm3 (4.30-5.90)
[2018-07-13 04:27] LABS: Alanine Aminotransfer (ALT/SGP 73 U/L (12-78); Albumin, Blood 1.9 g/dL (3.4-5.0); Albumin/Globulin Ratio 0.4 (0.8-1.8); Alk Phos 169 U/L (50-136); Anion Gap 6 mmol/L (6-16); Aspartate Aminotrans (AST/SGOT 30 U/L (12-37); Bilirubin, Total 0.6 mg/dL (0.1-1.0); Blood Urea Nitrogen 23 mg/dL (8-24); CO2, Blood 33 mmol/L (21-32); Calcium, Blood 8.5 mg/dL (8.5-10.1); Chloride, Blood 110 mmol/L (98-108); Creatinine, Blood 0.79 mg/dL (0.60-1.20); Glomerular Filtration Rate >60 (60-); Glucose, Blood 124 mg/dL (70-99); Magnesium, Blood 2.4 mg/dL (1.6-2.4); Phosphorus, Blood 3.4 mg/dL (2.5-4.9); Sodium, Blood 149 mmol/L (136-145); Total Protein, Blood 6.9 g/dL (6.4-8.2)
[2018-07-13 04:35] LABS: Mean Corpuscular Volume 101 fL (80-100)
--- NOTE | 2018-07-13 05:53 | NUR ---
SHIFT SUMMARY NO ACUTE CHANGES THIS SHIFT. NO CHANGES NEUROLOGICALLY. PT HAS RESTED WELL THROUGHOUT MOST OF THE SHIFT WITH MINIMAL TWITCHING NOTED. TWITCHING/JERKING INCREASED THIS AM. PT REMAINS ON AIRVO DECREASED TO 50L AND 28% FIO2. VITAL SIGNS STABLE. TF CONTINUES AT GOAL RATE. RESTRAINT REMAINS IN PLACE TO LEFT WRIST. PT REMAINS INCONTINENT OF URINE, ATTENDS IN PLACE. NS TKO. WILL CONTINUE TO MONITOR AND REPORT OFF TO ONCOMING RN.
--- NOTE | 2018-07-13 07:42 | NUR ---
INITIAL ASSESSMENT PATIENT RESTING QUIETLY IN BED. NO SIGNS OF PAIN NOTED. PATIENT AFEBRILE. PATIENT TRACKS WITH VERBAL STIMULI. PATIENT CONTINUES TO HAVE MORE OF A LEFT SIDE GAZE. PATIENT REMAINS NONVERBAL. MUSCLE TREMORING/ JERKING NOTED. PATIENT SATTING WELL ON AIRVO AT 50 L AND 28% FIO2. LUNG SOUNDS COARSE T/O. MODERATE AMOUNT OF THICK, PINK ORAL SECRETIONS SUCTIONED. PATIENT IN SR, HR 70S TO 80S. BP STABLE. PULSES STRONG. DOBHOFF PRESENT. JEVITY 1.5 INFUSING AT GOAL RATE OF 40 MLS/ HOUR WITH 30 ML WATER FLUSH Q4H. PATIENT INCONTINENT OF URINE AND STOOL. ATTENDS IN PLACE. URINE YELLOW IN COLOR. SERGEY AREA, INCLUDING PENIS IS REDDENED, BUT LESS SO THAN YESTERDAY. MEPILEX TO COCCYX, HEELS AND RIGHT HIP. SCAB TO THE LEFT KNEE. SUTURES IN NOSE. NS INFUSING TKO. BED LOW, CALL LIGHT IN REACH. WILL CONTINUE TO MONITOR PATIENT FREQUENTLY THROUGHOUT SHIFT.
--- NOTE | 2018-07-13 12:05 | NUR ---
PHYSICAL THERAPY WORKED WITH PATIENT. PT AND NURSE GOT PATIENT UP TO CHAIR. NO CHANGES IN NEURO STATUS. PATIENT HAS TEMP OF 99.7 DEGREES FAHRENHEIT. PATIENT HAS NO SIGNS OF PAIN. PATIENT REMAINS SATTING WELL ON SAME AIRVO SETTINGS. LUNGS CLEAR IN UPPER LOBES AND DIMINISHED IN LOWER LOBES. PATIENT HAS OCCASIONAL MUSCLE TWITCHES; DECREASED FREQUENCY/ AMOUNT SINCE YESTERDAY. NO OTHER CHANGES TO NOTE ON AT THIS TIME. WILL CONTINUE TO MONITOR.
--- NOTE | 2018-07-13 18:44 | NUR ---
SHIFT SUMMARY NEURO STATUS REMAINED UNCHANGED T/O SHIFT. PATIENT HAD NO SIGNS OF PAIN OR DISCOMFORT. PATIENT HAD TMAX OF 99.9 DEGREES FAHRENHEIT. LUNGS CLEAR IN UPPER LOBES AND DIMINISHED IN LOWER LOBES. PATIENT REMAINED SATTING WELL ON AIRVO 50 L AND 28% FIO2. MODERATE AMOUNT OF THICK, PINK SPUTUM BEING SUCTIONED FROM MOUTH. PATIENT HAS REMAINED IN SR, HR 70S TO 90S. BP HAS BEEN STABLE. TF REMAINS INFUSING AT GOAL. FLUSH INCREASED TO 100 MLS FREE WATER Q4H TODAY. PATIENT DID NOT HAVE BM THIS SHIFT. ATTENDS IN PLACE. URINE YELLOW IN COLOR. NS TKO. PATIENT HAD BED BATH THIS SHIFT. PHYSICAL THERAPY WORKED WITH PATIENT. PATIENT UP TO CHAIR FOR A FEW HOURS. PATIENT PLACED BACK IN BED WITH CEILING LIFT. BED LOW, CALL LIGHT IN REACH. REPORT WILL BE GIVEN SHORTLY TO ONCOMING INSPECTOR ASSEMBLIES AND INSTALLATIONS NURSE.
--- NOTE | 2018-07-13 19:40 | NUR ---
ASSUME CARE: REPORT RECIEVED FROM OFF GOING RN SABRA. MONITOR INTACT SHOWING SINUS RHYTHM. HEART RATE 70'S-90'S. REMAINS NON VERBAL WITH TRACKING ON LEFT ONLY REMAINS IS SOFT WRIST RESTRAINT TO PREVENT INADVERTENT REMOAL OF LINES CORDS. LUNG SOUNDS CLEAR UPPER LOBES WITH DECREASED SOUNDS IN THE BASES. REMAINS ON AIRVO 50L 28% FIO2 WITH RESPIRAITONS IN THE 24-30/MIN RANGE THICK BLOOD TINGED SPUTUM SX ORALLY MOD TO LARGE AMTS WITH ORAL CARE. ABDOMEN SOFT WITH BOWEL SOUNDS FOUR QUADS. ATTENDS INTACT SECONDARY TO INCONTINENCE. DRESSINGS INTACT TO HEELS AND COCCYX. SCAB ON KNEE AND NOSE INTACT. NO SPONTANEOUS PURPOSFUL MOVEMENT NOTED ON RIGHT SIDE. EXTREMITIES ELEVATED ON PILLOWS. REMAINS IN CONTACT/DROPLET ISOLATION, SECONDARY TO MRSA IN SPUTUM. CONTINUE TO MONITOR AND REPORT CHANGE IN PATIENT CONDITION
--- NOTE | 2018-07-14 03:45 | NUR ---
DRESSING CHANGE .. MEPLIPLEX DRESSING TO COCCYX CHANGED WITH PARTIAL BED BATH
[2018-07-14 04:25] LABS: Anion Gap 4 mmol/L (6-16); Blood Urea Nitrogen 28 mg/dL (8-24); Bun/Creatinine Ratio 33.4 (12.0-20.0); CO2, Blood 34 mmol/L (21-32); Calcium, Blood 8.6 mg/dL (8.5-10.1); Chloride, Blood 113 mmol/L (98-108); Creatinine, Blood 0.84 mg/dL (0.60-1.20); Glomerular Filtration Rate >60 (60-); Glucose, Blood 95 mg/dL (70-99); Potassium, Blood 4.1 mmol/L (3.5-5.5); Sodium, Blood 151 mmol/L (136-145)
--- NOTE | 2018-07-14 06:31 | NUR ---
SHIFT SUMMARY RESTS QUIETLY WHEN UNDISTURBED. MONITOR INTACT SHOWING SINUS RHYTHM/SINUS TACH HEART RATE 70'S-100. REMAINS NON VERBAL WILL TRACK HOWEVER ONLY TO LEFT. REMAINS IN SOFT WRIST RESTRAINT ON LEFT. SECONDARY TO PREVENTING INADVERTENT REMOVAL OF LINES TUBES. LUNG SOUNDS COARSE BASES CLEAR UPPER LOBES . RESPIRATORY RATE 220'S-30'S. ABDOMEN SOFT WITH BOWEL SOUNDS FOUR QUADS. ATTENDS IN PLACE SECONDARY TO INCONTINENCE. SERGEY RECTAAL AREA RED WITH DRESSING TO COCCYX DRESSINGS TO HEELS DRY INTACT. ALSO HIP. GENERALIZED DEPENDENT EDEMA NOTED. REPOSITIONED FREQ. FREQ ORAL CARE WITH THICK BLOOD TINGED ORAL SECREATIONS .TUBE FEEDING CONTINUES AT GOAL OF 40ML/HR PER DOBHOFF. CONTINUE TO MONITOR AND REPORT CHANGE IN PATIENT CONDITION
--- NOTE | 2018-07-14 07:58 | NUR ---
PROVIDER SVEN TO ROOM PROVIDER UPDATED ON PATIENTS CONDITION AND THAT PATIENT CONTINUES TO BE NONVERBAL WITH NO COOPERATIVE MOVEMENTS. INFORMED MD MACHUCA THAT PATIENT CONTINUES TO HAVE 'JERK' & 'TWITCH' MOVEMENTS THAT ARE SPASTIC AND COME AND GO. ALSO INFORMED PROVIDER THAT PATIENT REMAINS INCONTINENT OF URINE AND BOWEL AND THAT HE HAS A RED/EXORIATED SERGEY AREA WITH COCCYX WOUNDS - PROVIDER GAVE ORDERS FOR YUSUF CATH IF NECESSARY TODAY - WILL EVALUATE T/O SHIFT AND PLACE YUSUF PER CLINICAL JUDGEMENT AND ORDER. MD MACHUCA STATED THAT HE WOULD LIKE TO MOVE FORWARD WITH AN ETHICS CONSULT ON PLACING A PEG TUBE - HE WOULD LIKE TO DISCUSS WITH MD KAPLAN IF HE HAS ANY OTHER IDEAS OR INPUT REGARDING NUTRITION. DOBHOFF REMAINS IN PLACE AND PATIENTS LEFT WRIST RESTRAINED DUE TO PULLING DOBHOFF. SVEN TO PLACE ORDERS FOR ETHICS CONSULT FOR PEG TUBE. PATIENT CONTINUES TO HAVE NO FAMILY AVAILABLE. WILL CONTINUE TO MONITOR.
--- NOTE | 2018-07-14 08:03 | NUR ---
COLUMBIA SCALE COMPLETED PATIENT UNABLE TO COMPLETE COLUMBIA/SUICIDE SCALE. PATIENT REMAINS NONVERBAL.
--- NOTE | 2018-07-14 09:46 | NUR ---
Ethics consult order processed. Case details reviewed, state regulatory criteria analyzed, and conversation facilitated with the ordering provider; Dr Rizo. Concerns were expressed that the principal who will soon require a PEG Tube Placement Procedure as a life sustaining measure is medically incapabale of giving informed consent. Resolved: Unless the treatment is deemed clinically contraindicated by the attending provider and has confirmatory attestation from another medicially licensed doctor, then in accordance with ORS 127.580 (1) it shall be presumed that the principal consents to treatment. Exceptions to presumption of consent for therapy in ORS 127.580 include (a) when the administration of such nutrition and hydration is not medically feasible or would itself cause severe, intractable, or non-provisional pain. (b) When knowledge of a contradicting advance care planning instrument exists. (c) When the person has a progessive illness that will be fatal and is in an advanced stage, the person is consistently and permanently unable to communicate by any means, swallow food or water safely, care for the persons self and recognize the persons family and or other people, and it is very unlikely that the principals condition will substantially improve. In the event that the treatment proceeds as anticipated, in accordance with ORS 127.760 subsections 2(b) through 3(c), the [facility] ethicist with the endorsement of the multidiscinplinary committee will provide signatory support for treatment if needed. Thank you for this consult. Hu Castro DMIn [place] Leader, Ethicist
[2018-07-14 15:37] LABS: Vancomycin, Trough 16.1 ug/mL (5.0-10.0)
--- NOTE | 2018-07-14 17:04 | NUR ---
PCU DAYSHIFT SUMMARY PATIENT REMAINS NONVERBAL T/O SHIFT. DOES NOT FOLLOW DIRECTIONS. PATIENT IS VERY DECONTIONED WITH MULTIPLE BONE PROMENINCES - MEPALEX'S APPLIED NECESSARY. RESP E/U ON 2 LPM NC (TITRATED OFF AIRVO THIS SHIFT). PATIENT REMAINS INCONTINENT OF STOOL AND URINE, ATTENDS IN PLACE - SKIN CONTINUES TO GET EXCORATED - ORDER FOR YUSUF AVAILABLE. HR REMAINS NSR - VSS. NO ACUTE CHANGES NOTED THIS SHIFT. HUMA ON CASE TO PLACE PEG TUBE. PATIENT HAS DOBHOFF IN PLACE WITH CONTINUOUS FEEDINGS RUNNING PER ORDER. LIFT USED TO TRANSFER PATIENT BACK TO UNIT BED. PATIENT 100% DEPENDENT AT THIS TIME. NO S/SX OF ACUTE DISTRESS NOTED T/O SHIFT. WILL CONTINUE TO MONITOR AND GIVE REPORT TO DAYSHIFT RN.
--- NOTE | 2018-07-14 19:30 | NUR ---
ASSUME CARE: REPORT RECIEVED FROM OFF GOING RN ADAN. MONITOR INTACT SHOWING SINUS RYTHUM HEART RATE 70'S. REMAINS NONVERBAL NOT FOLLOWING REQUESTS HOWEVER GAZE TRACKS TO LEFT.LUNG SOUNDS COARSE WITH OCC WHEEZE RESPIRATIONS 20-28. SPO2 93-97% WITH O2 AT 2L/MIN PER NASAL CANNULA. ABDOMEN SOFT WITH BOWEL SOUNDS FOUR QUADS. ATTENDS IN PLACE SECONDARY TO INCONTINENCE. MOD AMTOUNT BROWN SOFT FORMED STOOL. PARTIAL BATH BED CHANGE TF INFUSING AT 40ML/HR WHICH IS GOAL THICK CREAMY SECRETIONS SX ORALLY DURING ORAL CARE. COARSE MOIST COUGH IS NOT ABLE TO COMPLETLY CLEAR SECRETIONS. RECTAL SERGEY AREA EXCORATED, CALIZINE CREME APPLIED. DRESSING TO COCCYX, HIP, AND BILAT HEELS INTACT. SUTURES INTACT TO NOSE ANITIBOTIC CREME APPILED. SCAB NOTED TO KNEE. L ARM REMEAINS IN SOFT WRIST RESTRAINT TO PREVENT INADVERTENT REMOVAL OF LINES/TUBES. CONTINUE TO MONITOR AND REPORT CHANGE IN PATIENT CONDITION
[2018-07-15 03:14] LABS: Source, Urine Catheter
[2018-07-15 03:24] LABS: Appearance, Urine Hazy (Clear); Bilirubin, Urine Neg (Neg); Blood, Urine 1+ (Neg); Color, Urine Yellow (P-Yellow); Glucose Qualitative, Urine Neg (Neg); Ketones, Urine Neg (Neg); Leukocyte Esterase, Urine 1+ (Neg); Nitrite, Urine Neg (Neg); Protein, Urine Neg (Neg); Specific Gravity, Urine 1.015 (1.003-1.022); Urobilinogen, Urine 2+ (Normal)
[2018-07-15 03:29] LABS: Amorphous Mod (0-Heavy); Bacteria Mod /hpf; Red Blood Cells, Urine 0-2 /hpf (0-2); Squamous Epithelial Cells Not Seen /hpf (Few)
[2018-07-15 03:54] LABS: Anion Gap 5 mmol/L (6-16); Blood Urea Nitrogen 27 mg/dL (8-24); Bun/Creatinine Ratio 32.8 (12.0-20.0); CO2, Blood 34 mmol/L (21-32); Calcium, Blood 8.8 mg/dL (8.5-10.1); Chloride, Blood 109 mmol/L (98-108); Creatinine, Blood 0.82 mg/dL (0.60-1.20); Glomerular Filtration Rate >60 (60-); Glucose, Blood 112 mg/dL (70-99); Potassium, Blood 4.1 mmol/L (3.5-5.5); Sodium, Blood 148 mmol/L (136-145)
--- NOTE | 2018-07-15 06:33 | NUR ---
SHIFT SUMMARY REMAINS NONVERBAL TRACKING TO THE LEFT ONLY DOES NOT FOLLOW COMMANDS.TUBE FEEDING OFF FOR PROCEDURE PENDING LATER TODAY.MONITOR INTACT SHOWING SINUS RHYTHM HEART RATE 70'S-80'S. ABDOMEN SOFT WITH BOWEL SOUNDS FOUR QUADS. YUSUF PATENT DRAINING CLEAR YELLOW URINE. HAS HAD TWO SOFT NON FORMED INCONTNENT BOWEL MOVEMENTS. DRESSINGS TO COCCYX , HEELS, R HIP INTACT. SCABBED AREA TO NOSE AND KNEE SUTURES INTACT TO NOSE. REMAINS IN SOFT L WRIST RESTRAINT TO PREVENT INADVERTENT REMOVAL OF LINES/TUBES. CONTINUE TO MONITOR AND REPORT CHANGE IN PATIENT CONDITION.
--- NOTE | 2018-07-15 07:49 | NUR ---
ASSUMED CARE: PT RESTING QUIETLY IN BED. ON 4L OXYMIZER. BREATHING PATTERN APPEARS NORMAL AT THIS TIME. DOBHOFF IN PLACE, FEEDING IS STOPPED FOR PEG SURGERY LATER THIS SHIFT. DAY SURGERY ESTIMATES BETWEEN 12 AND 1300 FOR SURGERY TIME. PT MAKES VERBAL NOISES WHEN REPOSITIONED IN BED AND PUSHES WITH LEFT ARM AGAINST SIDE RAIL. NO FURTHER NEEDS OR CONCERNS NOTED AT THIS TIME
--- NOTE | 2018-07-15 12:26 | NUR ---
07/15/18 1226 Ruth Baires History, Chart, Medications and Allergies reviewed before start of procedure. ANESESIA CASE WITH DR. BORWN IN ICU 8. UNKNOWN EXACT STOP OF FEEDING STOPED THIS AM, BUT RN REPORTS NONE FOR HER SHIFT. DR BROWN AWARE, STATES OKAY.
--- NOTE | 2018-07-15 12:41 | NUR ---
DAY SURGERY AT BEDSIDE TO COMPLETE PEG PLACEMENT. VSS DURING SURG WITH ONLY PROPOFOL GIVEN PER ANESTHESIOLOGIST. DISK PLACED AT [address] FINN AND NOT TO BE MOVED. DISCUSSED WITH DR FINN USE OF PEG AND STATES TO CALL HIM FOR FURTHER INSTRUCTIONS AFTER CBC COMPLETED. NURSE AT BEDSIDE FOR SUCTIONING AT THIS TIME.
--- NOTE | 2018-07-15 15:12 | NUR ---
AM DOSE OF KEPPRA NOT GIVEN. DISCUSSED WITH CHANELL IN PHARMACY, ADVISED TO GIVE NOW AND PUSH PM DOSE BACK AN HOUR. NICOLETTE CERVANTES IN PCU AWARE
[2018-07-15 15:24] LABS: BASOPHILS ABSOLUTE AUTO 0.18 K/mm3 (0.00-0.23); BASOPHILS PERCENT AUTO 1 % (0-2); EOSINOPHILS ABSOLUTE AUTO 0.34 K/mm3 (0.00-0.68); EOSINOPHILS PERCENT AUTO 3 % (0-6); Hematocrit 42.4 % (37.0-53.0); Hemoglobin 13.4 g/dL (13.5-17.5); IMMATURE GRAN ABSOLUTE AUTO 0.09 K/mm3 (0.00-0.10); IMMATURE GRAN PERCENT AUTO 1 % (0-1); LYMPHOCYTES ABSOLUTE AUTO 1.91 K/mm3 (0.84-5.20); LYMPHOCYTES PERCENT AUTO 15 % (21-46); MONOCYTES ABSOLUTE AUTO 1.28 K/mm3 (0.16-1.47); MONOCYTES PERCENT AUTO 10 % (4-13); Mean Corpuscular HGB 30.9 pg (26.0-34.0); Mean Corpuscular HGB Conc 31.6 g/dL (31.5-36.5); Mean Platelet Volume 10.3 fL (9.1-12.4); NEUTROPHILS ABSOLUTE AUTO 9.26 K/mm3 (1.96-9.15); NEUTROPHILS PERCENT AUTO 71 % (41-73); Platelet Count 675 K/mm3 (150-400); RDW Coefficient Variation 12.9 % (11.7-14.2); RDW Standard Deviation 46.3 fL (35.1-46.3); Red Blood Cell Count 4.33 M/mm3 (4.30-5.90); White Blood Cell Count 13.06 K/mm3 (4.00-11.30)
[2018-07-15 15:26] LABS: Mean Corpuscular Volume 98 fL (80-100)
--- NOTE | 2018-07-15 15:33 | NUR ---
DOBHOFF KEPT IN PLACE DUE TO IT BEING A HARD ONE TO PUT IN AND WE WILL NOT KNOW IF PEG IS OK TO USE UNTIL AFTER CBC. DISCUSSED WITH DIRECTOR OF HUMAN RESOURCES. CORE WINDER BILLY, WHO IS TAKING CARE OF PT, ALSO AWARE OF THIS. PT TRANSFERRED TO PCU VIA BED BY KAYLA.
--- NOTE | 2018-07-15 15:56 | NUR ---
PER PRIMARY RN, CARGO BROKER LILY QUINN TO PROVIDE CARE ON 07/16/18.
[2018-07-16 04:37] LABS: Anion Gap 4 mmol/L (6-16); Blood Urea Nitrogen 21 mg/dL (8-24); Bun/Creatinine Ratio 29.6 (12.0-20.0); CO2, Blood 32 mmol/L (21-32); Calcium, Blood 8.6 mg/dL (8.5-10.1); Chloride, Blood 106 mmol/L (98-108); Creatinine, Blood 0.71 mg/dL (0.60-1.20); Glomerular Filtration Rate >60 (60-); Glucose, Blood 111 mg/dL (70-99); Potassium, Blood 3.9 mmol/L (3.5-5.5); Sodium, Blood 142 mmol/L (136-145)
--- NOTE | 2018-07-16 06:00 | NUR ---
LATE ENTRY: ASSUMED CARE OF PATIENT AT APPROXIMATELY 1915 FROM BILLY Bain RN. PATIENT WAKES TO VERBAL STIMULUS; ABLE TO STATE YES, NO AND OK. PATIENT NODS HEAD TO SOME QUESTIONS WELL; AT ONE POINT STATING YES TO BEING IN PAIN; PATIENT UNABLE TO STATE NAME, OR LOCATION. PATIENT SLEEPS IN BETWEEN CARE ROUNDING. PATIENT HAS LIMITED MOVEMENT OF EXTREMITIES; LEFT SOFT WRIST RESTRAINT IN PLACE D/T PATIENT ATTEPTIMG TO PULL OUT TUBES. PATIENT ABLE TO MOVE LEFT HAND AND ARM AROUND. PATIENT HAS TF INFUSING INTO PEG FEEDING AT 40ML HR W/ 100 ML FLUSH Q4 RUNNING CONTINUOUSLY; TURNED OFF 30 MIN BEFORE TURNING. MEDS CRUSHED THROUGH PEG TUBE. Q2H TURN; URINARY CATHETER DRAINING CLEAR YELLOW URINE; EXCORITATED GROIN; MEPILEX TO COCCYX AND TO PREVIOUS SCABS. PATIENT INCONTINENT OF STOOL; CHECKED Q2H. IVF INFUSING PER ORDER INTO ONE PIV. NSR ON TELE; OXYGEN SATURATION ABOVE 90% ON 3LPM VIA OXYMIZER. PATIENT CURRENTLY RESTING IN BED; CALL LIGHT IN REACH; BED IN LOWEST POSISTION; BED ALARM ON; WILL CONTINUE TO MONITOR AND ASSESS UNTIL END OF SHIFT.
--- NOTE | 2018-07-16 14:14 | NUR ---
PATIENT GIVES PERMISSION TO STUDENT NURSE LILY QUINN TO PROVIDE CARE ON 07/16/18
[2018-07-16 14:49] LABS: Vancomycin, Trough 17.1 ug/mL (5.0-10.0)
--- NOTE | 2018-07-16 19:08 | NUR ---
END OF SHIFT PT ASSESSMENT IS WNL, PT KEYLA HAS IMPROVED, PT ABLE TO ANSWER QUESTIONS BUT STILL NOT MAKING SENSE, PT IS STILL NO TIME
--- NOTE | 2018-07-16 21:42 | NUR ---
ASSUMED CARE OF PATIENT AT APPROXIMATELY 1910 FROM PENNIE Shah RN. PATIENT WAKES TO VERBAL STIMULUS; ABLE TO STATE YES, NO AND OK. AT ONE POINT PATIENT STATED "I WANT WATER"; PATIENT EDUCATED ON NPO STATUS AND ALLOWED THIS RN AND BALLASTER TO PREFORM ORAL CARE. PATIENT UNABLE TO STATE NAME, OR LOCATION. PATIENT HAS LIMITED MOVEMENT OF EXTREMITIES; LEFT WRIST RESTRAINT REMOVED TODAY; PATIENT ABLE TO MOVE LEFT HAND AND ARM AROUND. PATIENT HAS TF INFUSING INTO PEG FEEDING AT 40ML HR W/ 100 ML FLUSH Q4 RUNNING CONTINUOUSLY; TURNED OFF 30 MIN BEFORE TURNING. MEDS CRUSHED THROUGH PEG TUBE. Q2H TURN; URINARY CATHETER DRAINING CLEAR YELLOW URINE; EXCORITATED GROIN; MEPILEX TO COCCYX AND TO PREVIOUS SCABS. PATIENT INCONTINENT OF STOOL; CHECKED Q2H. IVF INFUSING PER ORDER INTO ONE PIV. NSR ON TELE; OXYGEN SATURATION ABOVE 90% ON 2LPM VIA NC. PATIENT CURRENTLY RESTING IN BED; CALL LIGHT IN REACH; BED IN LOWEST POSISTION; BED ALARM ON; WILL CONTINUE TO MONITOR AND ASSESS UNTIL END OF SHIFT.
--- NOTE | 2018-07-17 06:37 | NUR ---
NO ACUTE CHANGES TO REPORT. VSS. PATIENT RECIEVED BEDBATH THIS MORNING; ALL MEPILEX DRESSING'S CHANGED. PATIENT SLEPT ABOUT TEN HOURS LAST NIGHT. WILL CONTINUE TO MONITOR AND ASSESS UNTIL END OF SHIFT.
--- NOTE | 2018-07-17 20:06 | NUR ---
END OF SHIFT PT HAS HAD NO CHANGES TO THE ASSESSMENT, PT HAS RESTED THROUGHOUT THE SHIFT, PT HAS HAD P T WITH INCREASED MOVEMENT, VSS
[2018-07-18 06:40] LABS: Hematocrit 34.4 % (37.0-53.0); Hemoglobin 11.3 g/dL (13.5-17.5); Mean Corpuscular HGB 31.2 pg (26.0-34.0); Mean Corpuscular HGB Conc 32.8 g/dL (31.5-36.5); Mean Corpuscular Volume 95 fL (80-100); Mean Platelet Volume 10.2 fL (9.1-12.4); Platelet Count 744 K/mm3 (150-400); RDW Standard Deviation 45.2 fL (35.1-46.3); Red Blood Cell Count 3.62 M/mm3 (4.30-5.90); White Blood Cell Count 11.17 K/mm3 (4.00-11.30)
--- NOTE | 2018-07-18 06:42 | NUR ---
SHIFT SUMMARY PATIENT CONTINUES TO BE MOSTLY NONVERBAL, HOWEVER WILL OCCATIONALLY ANSWER OR NOD "YES" OR "NO" TO QUESTIONS. PATIENT APPEARED TO REST COMFORTABLY THROUGHOUT THE NIGHT AND TO BE ABLE TO NAP ON AND OFF LAST NIGHT. CONTINUOUS PEG TUBE FEEDING AND FLUSHES RUNNING PER ORDERS. RESIDUALS WERE 0 ML'S WHEN CHECKED. PATIENT TURNED Q2H, ORAL CARE PROVIDED THROUGHOUT THE SHIFT. PATIENT ALSO CONTINUES TO APPEAR WEAK IN THE RIGHT ARM. SEIZURE PERCAUTIONS IN PLACE. WILL CONTINE TO MONITOR PATIENT AND REPORT TO ONCOMING RN.
[2018-07-18 06:53] LABS: Anion Gap 7 mmol/L (6-16); Blood Urea Nitrogen 18 mg/dL (8-24); Bun/Creatinine Ratio 23.2 (12.0-20.0); CO2, Blood 32 mmol/L (21-32); Calcium, Blood 8.1 mg/dL (8.5-10.1); Chloride, Blood 100 mmol/L (98-108); Creatinine, Blood 0.78 mg/dL (0.60-1.20); Glomerular Filtration Rate >60 (60-); Glucose, Blood 104 mg/dL (70-99); Potassium, Blood 3.5 mmol/L (3.5-5.5); Sodium, Blood 139 mmol/L (136-145)
--- NOTE | 2018-07-18 08:08 | NUR ---
PT REPOSITIONED AWAKE NO ACUTE CHANGES OCC COUGH WILL MED AND CHANGE TUBING TO PEG TUBE AND CHECK RESIDUAL LOW GRADE TEMP
--- NOTE | 2018-07-18 09:39 | NUR ---
DR MOSHER BY TO SEE PT
--- NOTE | 2018-07-18 12:26 | NUR ---
REPOSISTIONED ORAL CARE AND SERGEY CARE
--- NOTE | 2018-07-18 14:28 | NUR ---
per dr fermin, dc d5 ivfluid. at peg tube feed rate.
--- NOTE | 2018-07-18 15:10 | NUR ---
UPDATED MED ORDERS TO CHANGE NEURONTIN FROM CAPSULE TO LIQUID FOR PEG TUBE FEEDING
--- NOTE | 2018-07-18 17:46 | NUR ---
PT PLEASANT THIS AFT. HE ANSWERS WHEN SPOKEN TO. FIRST ANSWER CONTINUES FOR SAME ANSWER FOR MOST OTHER QUESTIONS FOLLOWING. KNOWS NAME IS KENDELL, NO LAST STATED. ASKED , ANS KENDELL. STATES FEELS OKAY. DENIES PAIN. PRESENTS PLEASANT WITH INTERACTIONS. TUBE FEEDINGS AT 40 [employer] RATE. MEDS GIVEN THRU TUBE. PT NPO. NO OTHER CONCERNS AT THIS TIME. BED IN LOW POSITION, CALL LITE IN REACH, BED ALARM ON FOR SAFETY
--- NOTE | 2018-07-19 07:24 | NUR ---
non verbal but responds to verbal stimuli, eyes open every time came in to change/reposition, continuous feeding, kvo, frequent checks, report given to returning day staff
--- NOTE | 2018-07-19 16:20 | NUR ---
TRANSFERED FROM [facility] TO 303: RECIEVED REPORT FROM PENNIE WILL.
--- NOTE | 2018-07-19 18:35 | NUR ---
SHIFT SUMMARY: PT IS MOSTLY NONVERBAL, HE WAS ABLE TO ANSWER/NOD TO YES/NO QUESTIONS. NO S/SX OF DISTRESS. ORAL CARE COMPLETED AND REPOSITIONED TO LEFT SIDE. NO ACUTE CHANGES NOTED SINCE TRANSFER FROM PCU.
--- NOTE | 2018-07-20 04:40 | NUR ---
NOC SHIFT SUMMARY THIS PT HAS SHOWN IMPROVEMENT THIS NIGHT FROM THE BEGINING OF MY SHIFT. EARLY THIS SHIFT AND DURING MY ASSESSMENT PT REFUSED TO ALLOW SUCTIONING AND WOULD BAD THE SUCTOIN DEVICE AWAY. HE DID ALLOW SUCTION EARLY THIS MORNING THOUGH AND IS MUCH IMPROVED IN HIS BREATHING AND HAS BEEN ABLE TO ANSWERE QUESTIONS WITH SINGLE WORDS. CURRENLTY SLEEPING. APPEARS IN NOT ACUTE DISTRESS. WILL CONTINUE TO MONITOR.
--- NOTE | 2018-07-20 05:51 | NUR ---
STARTED TUBE FEEDING ON [place] PUMP PER ORDERS
--- NOTE | 2018-07-20 19:43 | NUR ---
SHIFT SUMMARY: TOLERATED PEG TUBE FEEDING WELL. DENIES N/V. NO S/SX OF DISTRESS. YUSUF IS PATENT AND DRAINING. ORAL CARE AND REPOSITIONING DONE EVERY 2 HRS. ORAL CASTING HAS GREATLY IMPROVED. PT WAS UNABLE TO CLEAR HIS OWN SECREATIONS WHILE WORKING WITH PT/OT THIS AFTERNOON AND REQUIRED SUCTIONING.
--- NOTE | 2018-07-21 06:20 | NUR ---
NOC SHIFT SUMMARY THIS PT HAS BEEN POLITE AND COMPLIANT WITH CARE THIS NIGHT. HE WAS TURNED [id number] AND ORAL CARE [id number]. CATHETER WAS CLEANED WITH SOAPY RAG. HE RESTED THROUGHT THE NIGHT AND HAS HAD NOT COMPLIANTS. CURRENTLY APPEARS IN NOT ACUTE DISTRESS. WILL CONTINUE TO MONITOR.
--- NOTE | 2018-07-21 18:30 | NUR ---
SUMMARY PT RESTING IN BED, OCC LOOSE COUGH, ONLY ANSWERS SIMPLE QUESTIONS, OCC SWEARS, YUSUF CATH REMOVED, PT HAS BEEN ABLE TO VOID, IS INCONTINENT, VSS, NO ACUTE CHANGES, WILL CONT TO MONITOR
--- NOTE | 2018-07-22 04:43 | NUR ---
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 HE HAD A SEIZURE IN THE ED. HE IS A&O TO SELF, BUT CAN ANSWER YES/NO QUESTIONS. HE HAS A POWERGLIDE IN RUE, AND PERIPHERAL IV BELOW THAT, BOTH PATENT. HIS YUSUF CATHETER WAS DC'D 07/21, NOW WEARS ADULT BRIEFS. HE IS NPO AND HAS A PEG TUBE IN THE ABDOMEN FOR CRUSHED MEDICATIONS AND BOLUS FEEDINGS. ORDER STATES ADMIN 75 ML WATER BEFORE AND AFTER EACH FEEDING. HE IS A 2 PERSON MAX ASSIST. HE IS QUITE EMACIATED AND STIFF IN HIS EXTREMETIES. HE IS AWAITING PLACEMENT PER CARE MANAGEMENT. 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
--- NOTE | 2018-07-22 17:54 | NUR ---
SUMMARY PT RESTING QUIETLY IN BED, DID WORK WITH PT/OT TODAY, PT ONLY RESPONDING TO QUESTIONS WITH ONE WORD ANSWERS, NOT CONSISTENTLY, PT DID TOLERATE BOLUS FEEDS T/O THE DAY. VSS, NO ACUTE CHANGES, WILL CONT TO MONITOR
--- NOTE | 2018-07-23 05:46 | NUR ---
SHIFT SUMMARY PT MINIMAL VERBAL RESPONSES SLEEPY. INCONT OF URINE. PEG TUBE C BOLUS FEEDINGS. 2QHR TURNS. BED ALARM IN USE. DOES NOT LIKE TURNING OR BEING ON HIS R SIDE MUCH
--- NOTE | 2018-07-23 10:38 | NUR ---
Met with Arturo this morning. He awakened when his name was called. He is alert, however it is difficult to assess how oriented he is. He was able to tell this senior grant writer he had "pain all over" when he was asked if he was in pain. He then proceeded to say pain and other words that were unintelligible repeatedly during my visit. I attempted to reorient him and asked him to follow some simple commands. He is unable to follow commands to open his mouth or stick out his tongue. He did become more anxious and his breathing became more rapid and shallow when he was trying to talk. Words appear to be difficult to form for him as evidenced by his tachypnea and anxiousness when trying to answer questions. Oral care completed. He did not follow commands to open his mouth, however when this senior grant writer used the oral sponge and gently parted his lips he then opened his mouth and was cooperative with oral care. When oral care was completed this senior grant writer asked him if his mouth felt better and he was able to say "thank you." Spoke with Katy RANDOLPH, who is working with [facility] for a safe discharge plan for pt. Nursing notified of pt's pain and will address pain management. Pt with very poor dentician, he only has a couple of teeth in his mouth. PC will continue to follow for symptom management.
--- NOTE | 2018-07-23 11:19 | NUR ---
CONSENT PT GAVE PERMISSION TO RN MANAGED CARE, [facility] TO WORK WITH HIM ON 07/23/2018.
--- NOTE | 2018-07-23 17:12 | NUR ---
SHIFT SUMMARY- PT RESPONDS TO VERBAL STIMULI. PT ABLE TO ANSWER SIMPLE YES/NO QUESTIONS. PT SLEEP MOST OF THE SHIFT. PT C/O PAIN THIS AFTERNOON. MEDS GIVEN PER EMAR. PT TOLERATING TUBE FEEDS. RESP E/U ON RA. TURNS Q2H. PHYSICAL AND OCCUPATIONAL THERAPY IN TO WORK WITH PT TODAY. LET JIGGER OPERATOR, ALEX KNOW PHYSICAL THERAPY IS RECOMMENDING PT BE IN LIFT ROOM. NO OTHER SIGNIFICANT CHANGES THIS SHIFT.
[2018-07-24 04:41] LABS: Hematocrit 37.5 % (37.0-53.0); Mean Corpuscular HGB 30.5 pg (26.0-34.0); Mean Corpuscular Volume 95 fL (80-100); Mean Platelet Volume 9.7 fL (9.1-12.4); Platelet Count 567 K/mm3 (150-400); RDW Coefficient Variation 12.9 % (11.7-14.2); RDW Standard Deviation 45.8 fL (35.1-46.3); Red Blood Cell Count 3.93 M/mm3 (4.30-5.90); White Blood Cell Count 9.62 K/mm3 (4.00-11.30)
[2018-07-24 05:04] LABS: Anion Gap 6 mmol/L (6-16); Blood Urea Nitrogen 24 mg/dL (8-24); Bun/Creatinine Ratio 29.2 (12.0-20.0); CO2, Blood 36 mmol/L (21-32); Calcium, Blood 8.5 mg/dL (8.5-10.1); Chloride, Blood 104 mmol/L (98-108); Creatinine, Blood 0.82 mg/dL (0.60-1.20); Glomerular Filtration Rate >60 (60-); Glucose, Blood 79 mg/dL (70-99); Potassium, Blood 3.4 mmol/L (3.5-5.5); Sodium, Blood 146 mmol/L (136-145)
--- NOTE | 2018-07-24 05:46 | NUR ---
SHIFT SUMMARY PT MINIMAL VERBAL RESPONSES/INTERACTION, SLEEPY. TOLERATING TUBE FEEDING BOLUS. NO S/S OF PAIN. Q2HR TURNS. PASTY SOFT UNFORMED BM. REAPPLIED MEPILEX TO COCCYX. BED ALARM IN USE. HE SLEPT THROUGH NIGHT
--- NOTE | 2018-07-24 17:09 | NUR ---
SHIFT SUMMARY- PT SLEPT MOST OF SHIFT. PT DOES NOT C/O OR SHOW ANY S/S OF PAIN/DISCOMFORT. PT RESP E/U ON RA. FEEDINGS INCREASED TO 5 TIMES A DAY. FEEDING HELD THIS AFTERNOON, PT HAD 70ML YELLOW RESIDUALS. PT HAD ZERO RESIDUALS AT 1500 AND TOLERATED TUBE FEEDING THAT FOLLOWED. PT'S POTASSIUM 3.[address] GUTIERREZ ADDED ONE TIME DOSE OF POTASSIUM. PHYSICAL THERAPY AND OCCUPATIONAL THERAPY WORKED WITH PT TODAY AND GOT HIM UP INTO A WHEELCHAIR. TURNS Q2H. NO OTHER SIGNIFICANT CHANGES THIS SHIFT.
[2018-07-25 04:42] LABS: Anion Gap 6 mmol/L (6-16); Blood Urea Nitrogen 22 mg/dL (8-24); Bun/Creatinine Ratio 29.4 (12.0-20.0); CO2, Blood 34 mmol/L (21-32); Calcium, Blood 8.6 mg/dL (8.5-10.1); Chloride, Blood 103 mmol/L (98-108); Creatinine, Blood 0.75 mg/dL (0.60-1.20); Glomerular Filtration Rate >60 (60-); Glucose, Blood 109 mg/dL (70-99); Phosphorus, Blood 3.2 mg/dL (2.5-4.9); Potassium, Blood 3.6 mmol/L (3.5-5.5); Sodium, Blood 143 mmol/L (136-145)
--- NOTE | 2018-07-25 05:08 | NUR ---
SHIFT SUMMARY PT HAS SLEPT WELL, NO ACUTE CHANGES NOTED. WILL CONTINUE TO MONITOR.
--- NOTE | 2018-07-25 09:51 | NUR ---
PATIENT DID NOT EAT BREAKFAST THIS SHIFT DUE TO BEING NPO AT THIS TIME.
--- NOTE | 2018-07-25 18:07 | NUR ---
PT ALERT, NON VERBAL TODAY, OPENS EYES AT TIMES, THE PT APPEARS TO BE BREATHING EASILY ON RA AT THIS TIME, THE PT WAS REPOSITIONED, THE PT WAS UP TO THE SIDE OF THE BED WITH OT TODAYY, PT TOLERATED PEG FEED WELL, THE PTS POWERGLIDE DRESSING WAS CHANGED, CALL LIGHT IN REACH , BED IN THE LOW POSITION
--- NOTE | 2018-07-26 04:55 | NUR ---
SHIFT SUMMARY PT TURNED AND CHANGED EVERY 2 HOURS DURING THE NIGHT. PT MORE ALERT TONIGHT THAN LAST NIGHT. RESPONDING TO VERBAL STIMULI TONIGHT AND ALSO MAKING EYE CONTACT. ORAL CARES DONE T/O NIGHT. WILL CONTINUE TO MONITOR.
--- NOTE | 2018-07-26 10:48 | NUR ---
PATIENT DID NOT EAT BREAKFAST THIS SHIFT DUE BEING NPO AT THIS TIME.
--- NOTE | 2018-07-26 16:15 | NUR ---
PT IS ALERT, TODAY MORE ALERT AND VERBAL COMPARED TO YESTERDAY, THE PT DENIED PAIN AND APPEARS TO BE COMFORTABLE, THE PT APPEARS TO BE BREATHING EASILY ON RA, PT WAS REPOSITIONED T/O THE DAY, BARRIER CREAM AND LOTION APPLIED TO HIS SERGEY AREA, PT WAS GIVEN BOLUS TUBE FEED SCHEDULED T/O THE DAY AND TOLERATED WELL, ORAL SWABS DONE BY THIS RN X4 TODAY, CALL LIGHT IN REACH, BED IN THE LOW POSITION
--- NOTE | 2018-07-27 05:14 | NUR ---
SHIFT SUMMARY PT TURNED, POSITIONED, AND CHANGED EVERY 2 HOURS. ORAL CARES DONE. NO ACUTE CHANGES. WILL CONTINUE TO MONITOR.
--- NOTE | 2018-07-27 09:20 | NUR ---
ROUNDED ON PT PT REMOVED POWERGLIDE DURING THE NIGHT. DR ORDERED NO IV ACCESS NEEDED. DR REQUESTED WE FIND A SOLUTION SO THAT PT WOULD NOT ALSO PULL OUT PEG TUBE WELL. I FOUND AN ABDOMINAL BINDER TO APPLY TO PROTECT THE PEG TUBE.
--- NOTE | 2018-07-27 15:46 | NUR ---
SHIFT SUMMARY PT EVALUATED BY CLIENT APPLICATION SUPPORT SPECIALIST. SHE HAS DECIDED TO REDUCE THE PT'S FEEDINGS TO 4 X'S/DAY. ALSO, SHE WOULD LIKE HOB ELEVATED TO CONSTANT 45 DEGREES. PT IS MORE ACTIVE TODAY, TOOK OUT HIS POWERGLIDE IV LAST NIGHT. OUT OF CONCERN THAT HE WOULD REMOVE HIS PEG TUBE, THE DOCTOR REQUESTED I PROTECT IT SOMEHOW. I APPLIED AN ABDOMINAL BINDER, WHICH APPEARS TO BE WORKING THUS FAR. PT TOLERATED FEEDINGS WELL AND CAN RESPOND WITH YES AND NO ANSWERS. HIS SERGEY-AREA SKIN IS VERY RED AND IRRITATED HAS BEEN PREVIOUSLY NOTED ON OTHER SHIFTS. I HAVE APPLIED BARRIER CREAM. I WILL INFORM THE NIGHT NURSE OF THE NEW FEEDING SCHEDULE WHEN SHE ARRIVES, SO THAT SHE MAY PASS IT ON. PT IS NOT ON O2 OR TELE. HE HAS MEPILEX ON HIPS, COCCYX. WE HAVE HIM ON SEIZURE PRECAUTIONS, ALTHOUGH HE IS NOW RECEIVING KEPPRA AND HAS NOT SEIZED. 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 WE ARE AWAITING PLACEMENT ARRANGEMENTS TO DC THIS PT.
--- NOTE | 2018-07-28 02:54 | NUR ---
SOFT WRIST RESTRAINTS PLACED ON PT AFTER PT WAS OBSERVED TRYING TO PULL AT HIS PEG TUBE. THERE IS A ABD BINDER IN PLACE BUT PT CONTINUES TO PULL AT AREA.
[2018-07-28 04:50] LABS: Hematocrit 37.9 % (37.0-53.0); Hemoglobin 12.5 g/dL (13.5-17.5); Mean Corpuscular HGB 30.7 pg (26.0-34.0); Mean Corpuscular Volume 93 fL (80-100); Platelet Count 466 K/mm3 (150-400); RDW Coefficient Variation 12.9 % (11.7-14.2); RDW Standard Deviation 43.7 fL (35.1-46.3); Red Blood Cell Count 4.07 M/mm3 (4.30-5.90); White Blood Cell Count 9.01 K/mm3 (4.00-11.30)
--- NOTE | 2018-07-28 05:14 | NUR ---
SHIFT SUMMARY PT WAS FOUND AT BEGINNING OF SHIFT PULLING AT PEG TUBE SITE AND ABD BINDER. PT HAD PULLED OFF HIS ATTENDS AND HAD SMEARED FECES AROUND BED AND HIMSELF. PT WAS GIVEN SEROQUEL ORDERED AND IT HAD LITTLE EFEECT ON PT BEHAVIOR. PT WAS PLACED IN SOFT WRIST RESTRAINTS TO PROTECT PEG TUBE. PT TESTICLES ARE RED AND SWOLLEN AND WERE TX WITH BARRIER CREAM. PT POSSIBLY HAS A FUNGAL INFECTION THAT NEEDS TO BE ASSESSED BY PROVIDER. PT HAS BEEN REPOSITIONED AND CHANGED FREQUENTLY. PT CURRENTLY IS SLEEPING AND BREATHING EASY. PT WAS NOT ABLE TO ANSWER YES/ NO QUESTIONS FOR MOST OF SHIFT. THIS AM PT WAS ABLE TO ANSWER YES WHEN ASKED IF HE WAS COLD. CALL LIGHT IN REACH AND BED IN LOW POSITION.
[2018-07-28 05:16] LABS: Albumin, Blood 2.2 g/dL (3.4-5.0); Anion Gap 7 mmol/L (6-16); Blood Urea Nitrogen 17 mg/dL (8-24); Bun/Creatinine Ratio 25.4 (12.0-20.0); CO2, Blood 32 mmol/L (21-32); Calcium, Blood 8.8 mg/dL (8.5-10.1); Chloride, Blood 101 mmol/L (98-108); Creatinine, Blood 0.67 mg/dL (0.60-1.20); Glomerular Filtration Rate >60 (60-); Glucose, Blood 94 mg/dL (70-99); Phosphorus, Blood 3.4 mg/dL (2.5-4.9); Potassium, Blood 3.7 mmol/L (3.5-5.5); Sodium, Blood 140 mmol/L (136-145)
--- NOTE | 2018-07-28 11:09 | NUR ---
TRANSFERED PT TO [facility] CALLED PT HANDOFF TO NURSE PADILLA AT APPROX 1045 HRS. EXPLAINED PT'S CARE NEEDS, TUBE FEEDING SCHEDULE, AND WATER FLUSH SCHEDULE. ALSO DISCUSSED RESTRAINT USE AND RATIONALE BEHIND IT. NURSE PADILLA HAD NO FURTHER QUESTIONS. PT TRANSFERED TO [facility] WNL.
--- NOTE | 2018-07-28 17:44 | NUR ---
SHIFT SUMMARY PATIENT TRANSFERED FROM FLOOR TO SCU. PATIENT IN SOFT WRIST RESTRAINTS TO PREVENT PULLING OUT PEG TUBE. PATIENT WORKED WITH PT TODAY. PATIENT IRRITABLE AND CURSING DURING PERSONAL CARE. TOLERATING TUBE FEEDS WELL. DENIES PAIN. CALL LIGHT IN REACH, WILL CONTINUE TO MONITOR.
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
[2018-07-29 05:17] LABS: Hematocrit 36.9 % (37.0-53.0); Mean Corpuscular HGB 29.9 pg (26.0-34.0); Mean Corpuscular HGB Conc 32.5 g/dL (31.5-36.5); Mean Corpuscular Volume 92 fL (80-100); Mean Platelet Volume 10.4 fL (9.1-12.4); Platelet Count 421 K/mm3 (150-400); RDW Coefficient Variation 13.2 % (11.7-14.2); RDW Standard Deviation 44.2 fL (35.1-46.3); Red Blood Cell Count 4.02 M/mm3 (4.30-5.90); White Blood Cell Count 10.24 K/mm3 (4.00-11.30)
--- NOTE | 2018-07-29 17:24 | NUR ---
THIS PT HAS BEEN COOPERATIVE WITH CARE TODAY. HE STARTED OUT IN WRIST RESTRAINTS BUT HAVE SINCE BEEN DC'd BECAUSE HE HASNT BEEN PULLING AT LINES. THIS PT SLEPT IN BED MOST OF THE DAY. HE WORKED WITH PT AND OT. HE WAS REPOSTIONED EVERY 2 HOURS AND HIS ATTENDS WE CHECKED EVERY 2 HOURS AND CHANGED NEEDED. HIS FEEDING SCHEDULE HAS BEEN CHANGED TODAY. ORAL CARE HAS BEEN PERFORMED EVERY 2 HOURS. WILL CONTINUE TO MONITOR PT.
--- NOTE | 2018-07-29 20:41 | NUR ---
PT NOTED TO BE FIDGETY PULLING AT BRIEF. NURSE GOWNING UP TO GO INTO ROOM WITH COOK FISH EGGS TO TURN AND DO BRIEF CHANGE. UPON ENTERING ROOM PT HAD PULLED OF ABDOMINAL BINDER AND PULLED PEG TUBE OUT. SITE NOTED TO BE BLEEDING SOME, GAUZE PLACED AND ABD BINDER BACK ON. HOSPITALIST TRANSPORTER RADIOLOGY NOTIFIED AND ALSO GI NOTIFIED. AWAITING FOR NEW ORDERS. IV TO BE PLACED SO WE CAN GIVE IV KEPPRA ANS METOPROLOL.
--- NOTE | 2018-07-30 04:30 | NUR ---
SHIFT SUMMARY PT NOW HAS IVF'S INFUSING AT 75ML/HR. RECEIVED IV HALDOL 2 MG DURING NOC FOR AGITATION, PULLING ABD BINDER OFF AGAIN. PT TURNED AND REPOSITIONED Q 2 HRS ALONG WITH BRIEF CHANGES. PT REFUSING ORAL CARES AT TIMES PULLING STAFF HAND AWAY. WILL CONTINUE TO MONITOR.
--- NOTE | 2018-07-30 08:20 | NUR ---
DR. FINN'S OFFICE CALLED IN REGARDS TO THE PT'S PEG TUBE. HIS OFFICE WILL CALL BACK WITH INFORMAION ON WHETHER DR. FINN WILL REPLACE THE PEG TUBE TODAY OR NOT. DR. MOSHER NOTIFIED ON THE PT'S STATUS. PT PULLED OUT HIS PEG TUBE LAST NIGHT AROUND 1999, 07/29. DR. MOSHER GAVE A BILATERAL UPPER ETREMITY SOFT WRIST RESTRAINTS ORDER FOR HIS OWN SAFTETY AND TO PROTECT HIS IV. RESTRAINTS PLACED AT 0824.
--- NOTE | 2018-07-30 13:29 | NUR ---
PT CONT TO ATTEMPT TO GET OUT OF BED BY SLIDING TO END OF BED AND PUTTING LEGS OVER SIDE RAILS EVEN WITH WRIST RESTRAINTS IN PLACE. PT AGITATED WHEN STAFF IS PRESENT AT BEDSIDE AND ATTEMPTS TO PULL ON RESTRAINTS AND CUSSES AT STAFF. PT DOES NOT APPEAR TO BE IN PAIN OR DISCOMFORT BUT MORE FRUSTRATED WITH THE SITUATION. PT HAS MORE MOVEMENT AND STRENGTH ON RIGHT SIDE AND IS GRABBING AT STAFF AND RAILS. DR MOSHER NOTIFIED AND ORDERS RECEIVED FOR WRIST WELL SANFORD RESTRAINTS. PT DOES HAVE ALMAZ NIELSONN WELL.
--- NOTE | 2018-07-30 17:25 | NUR ---
AN ORDER FOR A SANFORD VEST AND SOFT WRIST RESTRAINTS WERE OBTAINED TODAY AT NOON. THE PT BECAME INCREASINGLY IRRITABLE, CONFUSED AND RESTLESS. HE CONTINUOUSLY PICKED AT HIS ATTENDS UNTIL HE COULD REMOVE THEM AND TRIED TO GET OUT OF BED FEET FIRST. HE WORKED WITH PHYSICAL THERAPY FOR A SHORT TIME TODAY. HE HAS NS RUNNING AT 75ML/HR TKO WITH A 20 GAUGE IN HIS LEFT UPPER ARM. HE SHOWED GREAT ROM WITH HIS RIGHT ARM TODAY WHILE PULLING AND TUGGINF ON THE WRIST RESTRAINT. RESTRAINT MANAGEMENT PERFORMED Q2H. NO PEG TUBE. NPO. WILL CONTINUE TO MONITOR.
--- NOTE | 2018-07-31 05:23 | NUR ---
SHIFT SUMMARY PT SLEPT POORLY, AWAKE MOST OF THE NIGHT. PT REPOSITIONED AND CHANGED EVERY 2 HOURS WITH CARES BEING DONE. PT REMAINS IN RESTRAINTS. FEVER OF 101 THIS AM, TYLENOL SUPP GIVEN AND DOWN 100.5. IVF'S INFUSING PER PUMP WITHOUT DIFFICULTY. WILL CONTINUE TO MONITOR.
[2018-07-31 05:37] LABS: BASOPHILS PERCENT AUTO 1 % (0-2); EOSINOPHILS ABSOLUTE AUTO 0.14 K/mm3 (0.00-0.68); EOSINOPHILS PERCENT AUTO 1 % (0-6); Hematocrit 37.2 % (37.0-53.0); IMMATURE GRAN ABSOLUTE AUTO 0.03 K/mm3 (0.00-0.10); IMMATURE GRAN PERCENT AUTO 0 % (0-1); LYMPHOCYTES ABSOLUTE AUTO 1.57 K/mm3 (0.84-5.20); LYMPHOCYTES PERCENT AUTO 15 % (21-46); MONOCYTES ABSOLUTE AUTO 0.86 K/mm3 (0.16-1.47); MONOCYTES PERCENT AUTO 8 % (4-13); Mean Corpuscular HGB 30.2 pg (26.0-34.0); Mean Corpuscular HGB Conc 32.3 g/dL (31.5-36.5); Mean Corpuscular Volume 94 fL (80-100); Mean Platelet Volume 10.5 fL (9.1-12.4); NEUTROPHILS ABSOLUTE AUTO 7.94 K/mm3 (1.96-9.15); NEUTROPHILS PERCENT AUTO 75 % (41-73); Platelet Count 477 K/mm3 (150-400); RDW Coefficient Variation 13.2 % (11.7-14.2); RDW Standard Deviation 45.4 fL (35.1-46.3); Red Blood Cell Count 3.97 M/mm3 (4.30-5.90); White Blood Cell Count 10.64 K/mm3 (4.00-11.30)
[2018-07-31 06:02] LABS: Anion Gap 8 mmol/L (6-16); Blood Urea Nitrogen 11 mg/dL (8-24); Bun/Creatinine Ratio 16.1 (12.0-20.0); CO2, Blood 28 mmol/L (21-32); Chloride, Blood 108 mmol/L (98-108); Creatinine, Blood 0.69 mg/dL (0.60-1.20); Glomerular Filtration Rate >60 (60-); Glucose, Blood 86 mg/dL (70-99); Potassium, Blood 3.6 mmol/L (3.5-5.5); Sodium, Blood 144 mmol/L (136-145)
--- NOTE | 2018-07-31 13:05 | NUR ---
PATIENT NON-VERBAL, CONSTENT JERKS OF MOVEMENT AND MUSCULATURE, UNABLE TO OBTAIN B/P EXCEPT THROUGH DOPPLER, SEE RECORD, DR FINN AWARE. PATIENT PADDED TO PREVENT INJURY. TWO PHYSICIAN CONSENT OBTAINED BY DR FINN WITH DR MOSHER.
--- NOTE | 2018-07-31 13:25 | NUR ---
DISCUSSED DNR WITH DR STERLING, SINCE PATIENT UNABLE TO SUSPEND WILL PROCEED WITHOUT SUSPENSION FORM.
--- NOTE | 2018-07-31 14:03 | NUR ---
07/31/18 1403 Ruth Baires History, Chart, Medications and Allergies reviewed before start of procedure. MAC CASE WITH DR. STERLING SEE ANESTHESIA RECORD. BEFORE START OF CASE LARGE CAST PULLED FROM BACK OF THROAT AND ALL Along right side of mouth. oral suctioned out thick esparza/redsinged suputum from behind cast
--- NOTE | 2018-07-31 17:48 | NUR ---
SHIFT SUMMARY- PT RESPONDS TO VERBAL STIMULI AT TIMES. PT GETS AGGITATED UPON REPOSITIONING AND ATTENDS CHANGES. PT DOES NOT SHOW ANY S/S OF PAIN. 96% ON RA. PT'S BP 163/90 THIS AM. MEDS GIVEN PER EMAR. PT HAD PEG TUBE PLACED THIS AFTERNOON. PT RETURNED FROM DAY SURGERY AT 1500. DAY SURGERY NURSE REPORTS DR. FINN SAID OK TO USE PEG TUBE AT 1900. DR. MOSHER SAID OK TO RENEW RESTRAINT ORDER. PT IN SANFORD VEST AND SOFT WRIST RESTRAINTS. TURNS Q2H. NO OTHER SIGNIFICANT CHANGES THIS SHIFT.
--- NOTE | 2018-08-01 07:20 | NUR ---
SHIFT SUMMARY PT IN RESTRAINTS BUT WAS ABLE TO SLEEP THROUGH NIGHT. PEG TUBE WORKING. CONDOM CATH APPLIED FOR INCONT. HE WILL DO RHYTHMIC TWITCHING WHEN AGITATED. CAN GET AGITATED WITH CARES AND TURNING. MEPILEX ON COCCYX REAPPLIED. Q2HR TURN. BED ALARM IN USE
--- NOTE | 2018-08-01 16:03 | NUR ---
PATIENT HAS HAD NO CHANGES THIS SHIFT. MEDS AND NOURISHMENT GIVEN THROUGH PEG TUBE. HE REMAINS NON VERBAL AND HAS SLEPT THROUGH MOST OF THE SHIFT. PT HAD LARGE BM. CONDOM CATH WAS PULLED OFF, NO NEW ONE APPLIED, BRIEF CHECKED/CHANGED Q2H. CONCERN FOR PATIENT PULLING AT LINES , RESTRAINTS STILL IN PLACE. NO CHANGES THIS SHIFT.
--- NOTE | 2018-08-02 06:30 | NUR ---
SHIFT SUMMARY PT NONVERBAL MINIMAL RESPONSE TO STIMULI. RHYTHMIC TWITCHING/JERKING MOVEMENT RR 28 AND ORAL TEMP 103.3. MEDICATED PER EMAR C TYLENOL SUPP ORAL TEMP CAME DOWN 102.1, 100.7, 98.4. NOTIFIED DR CUENCA. USED SUCTION FOR THICK MUCOUSY SPUTUM COUGHED UP. PUT 2L O2 NC ON AND GOT O2 TO 94%. INCONT OF URINE AND SMALL SOFT BM. ORAL TEMP 101.7 AND GIVEN TYLENOL SUPP CAME DOWN TO 101.0. WILL CONTINUE TO MONITOR
[2018-08-02 09:07] LABS: BASOPHILS ABSOLUTE AUTO 0.05 K/mm3 (0.00-0.23); BASOPHILS PERCENT AUTO 0 % (0-2); EOSINOPHILS ABSOLUTE AUTO 0.18 K/mm3 (0.00-0.68); EOSINOPHILS PERCENT AUTO 2 % (0-6); Hematocrit 40.5 % (37.0-53.0); Hemoglobin 12.9 g/dL (13.5-17.5); IMMATURE GRAN ABSOLUTE AUTO 0.04 K/mm3 (0.00-0.10); IMMATURE GRAN PERCENT AUTO 0 % (0-1); LYMPHOCYTES ABSOLUTE AUTO 0.96 K/mm3 (0.84-5.20); LYMPHOCYTES PERCENT AUTO 8 % (21-46); MONOCYTES ABSOLUTE AUTO 0.61 K/mm3 (0.16-1.47); MONOCYTES PERCENT AUTO 5 % (4-13); Mean Corpuscular HGB 30.2 pg (26.0-34.0); Mean Corpuscular HGB Conc 31.9 g/dL (31.5-36.5); Mean Corpuscular Volume 95 fL (80-100); Mean Platelet Volume 9.8 fL (9.1-12.4); NEUTROPHILS ABSOLUTE AUTO 10.54 K/mm3 (1.96-9.15); NEUTROPHILS PERCENT AUTO 85 % (41-73); Platelet Count 421 K/mm3 (150-400); RDW Coefficient Variation 13.5 % (11.7-14.2); RDW Standard Deviation 47.1 fL (35.1-46.3); Red Blood Cell Count 4.27 M/mm3 (4.30-5.90); White Blood Cell Count 12.38 K/mm3 (4.00-11.30)
--- NOTE | 2018-08-02 17:14 | NUR ---
PATIENTS MENTATION IS UNCHANGED. HE NEEDS SUCTIONING THROUGH OUT THE SHIFT. HE HAS SLEPT MOST OF THE DAY AND ONLY AROUSES DURING BRIEF CHANGES. NURSE HAS OBSERVED SEVERAL MOMENTS OF PATIENT HAVING TREMORS THOUGH THEY DO NOT APPEAR TO BE A SEIZURE. HE REMAINS IN RESTRAINTS TO PREVENT HIM PULLING OUT HIS PEGG.
--- NOTE | 2018-08-03 04:56 | NUR ---
SHIFT SUMMARY PT VERY MORE ALERT COMPARED TO THE NIGHT BEFORE. HE WILL OPEN HIS EYES AND TRACK AND FOLLOW AND WILL COMMUNICATE BEST HE CAN WITH SOUNDS NOT DISTINGUISHABLE. HE WILL FOLLOW COMMANDS LIKE TO OPEN HIS MOUTH FOR ORAL CARE AND WILL EVEN SMILE AND LAUGH. ORAL TEMP 101.7 AND AFTER TYLENOL SUPP TEMP 98. INCONT OF URINE AND SMALL SOFT BM. TF BOLUS. 25O FREE WATER BID. Q2HR TURNS. BED ALARM IN USE WRIST RESTRAINTS STILL NEEDED TO KEEP LINES INTACT.
[2018-08-03 08:11] LABS: Hemoglobin 11.2 g/dL (13.5-17.5); Mean Corpuscular HGB 30.7 pg (26.0-34.0); Mean Corpuscular Volume 96 fL (80-100); Mean Platelet Volume 9.6 fL (9.1-12.4); Platelet Count 351 K/mm3 (150-400); RDW Coefficient Variation 13.3 % (11.7-14.2); RDW Standard Deviation 47.6 fL (35.1-46.3); Red Blood Cell Count 3.65 M/mm3 (4.30-5.90); White Blood Cell Count 6.61 K/mm3 (4.00-11.30)
[2018-08-03 08:43] LABS: Anion Gap 9 mmol/L (6-16); CO2, Blood 29 mmol/L (21-32); Chloride, Blood 109 mmol/L (98-108); Potassium, Blood 2.9 mmol/L (3.5-5.5); Sodium, Blood 147 mmol/L (136-145)
[2018-08-03 08:44] LABS: Blood Urea Nitrogen 15 mg/dL (8-24); Bun/Creatinine Ratio 24.2 (12.0-20.0); Calcium, Blood 8.4 mg/dL (8.5-10.1); Creatinine, Blood 0.62 mg/dL (0.60-1.20); Glomerular Filtration Rate >60 (60-); Glucose, Blood 100 mg/dL (70-99)
[2018-08-03 08:54] LABS: BAND PERCENT MAN 4 % (0-8); BASOPHILS ABSOLUTE MAN 0.13 K/mm3 (0.00-0.23); BASOPHILS PERCENT MAN 2 % (0-2); EOSINOPHILS ABSOLUTE MAN 0.19 K/mm3 (0.00-0.68); EOSINOPHILS PERCENT MAN 3 % (0-6); LYMPHOCYTES ABSOLUTE MAN 1.12 K/mm3 (0.84-5.20); LYMPHOCYTES PERCENT MAN 17 % (21-46); METAMYELOCYTE ABSOLUTE MAN 0.06 K/mm3 (0.00-0.00); METAMYELOCYTE PERCENT MAN 1 % (0-0); MONOCYTES ABSOLUTE MAN 0.72 K/mm3 (0.16-1.47); MONOCYTES PERCENT MAN 11 % (4-13); NEUTROPHILS ABSOLUTE MAN 4.36 K/mm3 (1.96-9.15); SEG NEUTROPHILS PERCENT MAN 62 % (41-73); TOTAL CELLS COUNTED 100
[2018-08-03 18:24] LABS: PCO2 Arterial 41.3 mmHg (35-45); PO2 Arterial 61.4 mmHg (80-100); pH Blood Arterial 7.49 (7.35-7.45)
--- NOTE | 2018-08-03 18:33 | NUR ---
SHIFT SUMMARY PT NONVERBAL, OPENS EYES TO VERBAL AND TACTILE STIMULI. RIGHT SIDED FACIAL DROP AND RIGHT ARM WEAKNESS. RIGHT SIDE TREMOR/TWITCH NOTED THIS, MEDICATED X1 WITH ATIVAN WITH GOOD RESULTS. NO S/SX PAIN DURING SHIFT. NO EMESIS. PT HAS PRODUCTIVE COUGH, SUCTIONED T/O SHIFT. ORAL CARE COMPLETED T/O SHIFT. PT SATS AT >90% ON 2L O2 VIA NC, RESPIRATIONS MID TO UPPER 30'S T/O SHIFT AND LABORED AT TIMES, DR MOSHER NOTIFIED, NEW ORDERS THIS EVENING FOR ABG STAT. DR MOSHER NOTIIFED OF RESULTS, THIS RN TO INCREASE O2 TO 3L, AND CONTINUE TO MONITOR. THIS AM PEG TUBE WAS NOTE FLUSHING, THIS AFTERNOON UNPLUGGED AND PROVIDED 1 CARTON OF FEEDING, NOTIFIED DR MOSHER OF USE, NEW ORDERS TO HOLD ALL MEDICATIONS AND FEEDING, CONTINUE TO FLUSH PEG TUBE 30ML Q4H, IF REMAINS PATENT, CONTINUE FEEDING AND MEDICATIONS 08/04/18. PT HAS DIARRHEA, STOOL SPECIMEN SENT, RESULTS NEGATIVE. ELEVATED TEMP THIS AM, OTHER VSS. NO OTHER ACUTE CHANGES NOTED DURING SHIFT. WILL CONTINUE TO MONITOR UNTIL REPORT GIVEN TO ONCOMING RN.
--- NOTE | 2018-08-03 19:55 | NUR ---
PT TO TRANSFER PT TO TRANSFER TO HIGHER LEVEL OF CARE PER HOSPITALIST ORDERS. 32 RR, 83% ON 3L VIA NC, PULSE 101, BP 161/101. STAT ABG REVIEWED BY DR MOSHER EARLIER IN SHIFT, SEE PRIOR RN NOTE. PT IS NONVERBAL, BUT APPEARS TO BE IN RESP DISTRESS c LABORED BREATHING. WILL CONT TO MONITOR.
--- NOTE | 2018-08-03 20:50 | NUR ---
ASSUMED CARE OF PT PT TRANSFER FROM MEDICAL FLOOR. RECEIVED REPORT FROM NICOLETTE RIBEIRO. PT TRANSFERRED PCU ADMIT DUE TO INCREASED RR (30-40) AND DECREASING SATS (MID 80'S). PT ARRIVE TO ICU 1 ON 3L NC WITH O2 SATS IN THE LOW 90'S WITH RR OF 29. PT HAS BILATERAL SOFT WRIST RESTRAINTS IN PLACE DUE TO PULLING OUT PREVIOUS PEG TUBE. NEW PEG TUBE PLACED 07/31. PEG TUBE HAS NOT BEEN FLUSHING, ORDER TO HOLD NIGHT MEDS AND FLUSH 30 ML Q4 UNTIL MORNING. PT IS ALERT TO SELF BUT IS UNABLE TO FOLLOW DIRECTIONS. PT'S SPEECH IS MOSTLY INCOMPREHENSIBLE WITH EXCEPTION OF A FEW SCATTERED CURSE WORDS. PT HAS GENERALIZED WEAKNESS WITH HIS RIGHT BEING WEAKER THAN HIS LEFT. RHONCHI HEARD THROUGHOUT. SEE FULL SHIFT ASSESSMENT.
--- NOTE | 2018-08-04 06:03 | NUR ---
SHIFT SUMMARY NO ACUTE CHANGES OVERNIGHT. PT REMAINED STABLE ON 3L O2 VIA NC WITH O2 SATS IN THE MID 90'S, RR 27-30. PT WAS HYPERTENSIVE MOST OF THE NIGHT, SBP BROUGHT DOWN TO 173 WITH ONE DOSE OF HYDRALAZINE. PEG TUBE PATENT AND EASILY FLUSHED WITH 30 ML H20 Q4 PER PHYSICIAN ORDER. PT UNABLE TO FOLLOW COMMANDS. PT PULLS AT RESTRAINTS AND TRIES TO PULL ATTENDS OFF. PT DOSED WITH ATIVAN AND SEEMS TO CALM DOWN WHEN HIS HAND IS HELD AND HE IS REASSURED VERBALLY. WILL REPORT TO DAYSHIFT NURSE.
[2018-08-04 09:22] LABS: Anion Gap 7 mmol/L (6-16); Blood Urea Nitrogen 18 mg/dL (8-24); Bun/Creatinine Ratio 15.9 (12.0-20.0); CO2, Blood 28 mmol/L (21-32); Calcium, Blood 9.1 mg/dL (8.5-10.1); Chloride, Blood 113 mmol/L (98-108); Creatinine, Blood 1.13 mg/dL (0.60-1.20); Glomerular Filtration Rate >60 (60-); Glucose, Blood 118 mg/dL (70-99); Magnesium, Blood 1.9 mg/dL (1.6-2.4); Sodium, Blood 148 mmol/L (136-145)
--- NOTE | 2018-08-04 11:10 | NUR ---
14FRENCH COUDE UROMETER CATHETER INSERTED. BLADDER SCAN SHOWED GREATER THAN 999.
--- NOTE | 2018-08-04 15:52 | NUR ---
DR READ HERE.
--- NOTE | 2018-08-04 17:30 | NUR ---
SHIFT SUMMARY - AT THE BEGINNING OF THE SHIFT, PT'S BLE WERE MOTTLED. AT APPX 11 AM - MOTTLING HAD DISAPPEARED. AT APPX 1500 OT CAME, AND WAS UNABLE TO WAKE PT - ATTEMPTED STERNAL RUB BY OT - UPDATED PT RECEIVED NEURONTIN APPX 1 HOUR BEFORE THIS TIME. AT 1600, PT WAS AWAKE, LOOKING AT STAFF, NONVERBAL. UPDATED DR. READ ABOUT THE EVENT WITH OT AND UPDATED HER ON GABAPENTIN DOSING - WILL REPORT OFF ON THIS EVENT TO BOX MAKER PAPERBOARD. PT HAS BEEN ON/OFF SLEEPING THROUGHOUT MOST OF DAY. PT DOES GET EASILY AGITATED WITH TURNING, AND CLEANING, AND WHEN HIS LEFT ARM IS UNDONE, PT GRABS AT STAFF OR WHATEVER HE CAN GET HIS LEFT HAND ON. ABDOMINAL BINDER IN PLACE - PEG TUBE IN PLACE, FLUSHES EASILY, GAVE 1 CAN OF JEVITY 1.5/237 ML WITHOUT DIFFICULTY. PT ALSO SWEARS WHEN HE GETS AGITATED WITH TURNS/CLEANING. CALL LIGHT WITHIN REACH. BED IN LOW POSITION.
--- NOTE | 2018-08-04 19:15 | NUR ---
ASSUMED CARE OF PT PT LAYING IN BED WITH BILATERAL SOFT WRIST RESTRAINTS ON. NS RUNNING AT 75 ML/HR. YUSUF PLACED DURING DAYSHIFT D/T URINARY RETENTION PATENT AND DRAINING. PEG TUBE FLUSHES EASILY. ORDER FOR GRAVITY FEEDS AND FLUSHES REVIEWED. SATS 98% ON 3L NC. RR 38. SEE FULL SHIFT ASSESSMENT.
--- NOTE | 2018-08-05 00:15 | NUR ---
PT COARSE THROUGHOUT WITH THICK SECRETIONS COMING OUT OF MOUTH. CALLED RT TO ASSIST IN DEEP SUCTIONING D/T PT'S INCREASED RR AND WORK OF BREATHING. COPIOUS AMOUNTS OF THICK GREEN/YELLOW SECRETIONS SUCTIONED WITH YANKAUER AND NG SUCTION USED ORALLY.
--- NOTE | 2018-08-05 05:45 | NUR ---
SHIFT SUMMARY PT STABLE THROUGHOUT THE NIGHT WITH ONE EPISODE OF INCREASED RR (40-50'S) (SEE PREVIOUS NOTE). PT CONTINUES TO HAVE THICK ORAL SECRETIONS BUT IS MAINTAINING SATS IN THE MID 90'S ON 3L NC. ORAL CARE PERFORMED Q4 HOURS. PT ALERT TO SELF BUT UNABLE TO FOLLOW COMMANDS. PT YELLS OUT "HELP" ON OCCASION WELL CURSE WORDS. PT EASILY COMFORTED BY TALKING AND HOLDING HIS HAND. JEVITY 1.5 BOLUS FEEDS TOLERATED WELL. PEG TUBE PATENT AND FLUSHING. PT HAD SEVERAL LOOSE BROWN STOOLS. YUSUF CATH PATENT AND DRAINING YELLOW URINE WITH SEDIMENT. 1000 ML OUT THIS SHIFT. WILL REPORT TO DAYSHIFT NURSE.
[2018-08-05 08:27] LABS: Anion Gap 4 mmol/L (6-16); Blood Urea Nitrogen 16 mg/dL (8-24); Bun/Creatinine Ratio 21.5 (12.0-20.0); CO2, Blood 33 mmol/L (21-32); Calcium, Blood 8.8 mg/dL (8.5-10.1); Chloride, Blood 116 mmol/L (98-108); Creatinine, Blood 0.75 mg/dL (0.60-1.20); Glomerular Filtration Rate >60 (60-); Glucose, Blood 103 mg/dL (70-99); Potassium, Blood 3.1 mmol/L (3.5-5.5); Sodium, Blood 153 mmol/L (136-145)
[2018-08-05 08:41] LABS: Vancomycin, Trough 23.4 ug/mL (5.0-10.0)
--- NOTE | 2018-08-05 09:30 | NUR ---
ASSUMED CARE: REPORT RECEIVED FROM RITA Swanson RN. ASSUMED CARE OF THIS PT AT APPROX 0700. ON ASSESSMENT, PT IS LAYING IN BED QUIETLY. O2 HAS BEEN REMOVED BY PT & SATS REMAIN > 92%, O2 NOW TURNED OFF COMPLETELY. HE IS MUMBLING INCOHERENTLY & MUTTERING CURSE WORDS. HE WILL OCCASIONALY ANSWER A YES/NO QUESTION FOR THIS RN BUT OTHERWISE DOES NOT MAKE SENSE WHEN ATTEMPTING TO CONVERSE. WILL CONTINUE TO MONITOR & UPDATE NEEDED.
[2018-08-05 10:59] LABS: BASOPHILS ABSOLUTE AUTO 0.09 K/mm3 (0.00-0.23); BASOPHILS PERCENT AUTO 1 % (0-2); EOSINOPHILS PERCENT AUTO 5 % (0-6); Hematocrit 38.4 % (37.0-53.0); Hemoglobin 11.8 g/dL (13.5-17.5); IMMATURE GRAN ABSOLUTE AUTO 0.02 K/mm3 (0.00-0.10); IMMATURE GRAN PERCENT AUTO 0 % (0-1); LYMPHOCYTES ABSOLUTE AUTO 0.97 K/mm3 (0.84-5.20); LYMPHOCYTES PERCENT AUTO 10 % (21-46); MONOCYTES ABSOLUTE AUTO 0.67 K/mm3 (0.16-1.47); MONOCYTES PERCENT AUTO 7 % (4-13); Mean Corpuscular HGB 30.1 pg (26.0-34.0); Mean Corpuscular HGB Conc 30.7 g/dL (31.5-36.5); Mean Corpuscular Volume 98 fL (80-100); Mean Platelet Volume 9.6 fL (9.1-12.4); NEUTROPHILS ABSOLUTE AUTO 7.42 K/mm3 (1.96-9.15); NEUTROPHILS PERCENT AUTO 77 % (41-73); Platelet Count 390 K/mm3 (150-400); RDW Coefficient Variation 13.5 % (11.7-14.2); RDW Standard Deviation 48.7 fL (35.1-46.3); Red Blood Cell Count 3.92 M/mm3 (4.30-5.90); White Blood Cell Count 9.67 K/mm3 (4.00-11.30)
--- NOTE | 2018-08-05 17:33 | NUR ---
SHIFT SUMMARY: NO ACUTE CHANGES THIS SHIFT. PT IS RESTING QUIETLY AT THIS TIME. HE CONTINUES TO DENY PAIN, BUT DOES REQUEST TO "GET OUT OF HERE" FREQUENTLY WHEN AWAKE & HAS TRIED TO CLIMB OOB MULTIPLE TIMES THIS SHIFT. MEDS PER EMAR FOR AGITATION/ ANXIETY. MOST OF HIS COMMUNICATION IS MUMBLED W/ CURSE WORDS. HE REMAINS ON RA W/ O2 SATS > 92%. MONITOR SHOWS SR W/ OCCASIONAL PVCs, AVG HR 80s. PT TOLERATING BOLUS FEEDS WELL THROUGH PEG TUBE ORDERED. ABDOMEN IS SOFT, BUT GAURDED. PT HAS PULLED PEG TUBE BEFORE & IS NOW WEARING ABDOMINAL BINDER TO PROTECT THE TUBE. YUSUF REMAINS PATENT/DRAINING YELLOW URINE W/ MOD AMNTS SEDIMENT NOTED IN TUBE. PT IS PCU STATUS. WILL CONTINUE TO MONITOR & REPORT OFF TO ONCOMING RN.
--- NOTE | 2018-08-06 02:57 | NUR ---
ASSUMING CARE RECEIVED PT REPORT FROM NICOLETTE MCKEON AND NICOLETTE LEVINE. PT IS PCU STATUS AT THIS TIME. PT HAS A DIAGNOSIS OF RESP FAILURE. PT HAD A CVA WITH RIGHT SIDED DEFICITS. PT SPEECH IS GARBLED OR NON-SENSICAL AT TIMES. PT IS IN BILATERAL SOFT WRIST RESTRAINTS FOR PROTECTION OF LINES AND TUBES. PT HAS A PEG TUBE IN PLACE. PER REPORT PT PULLED OUT PREVIOUS PEG TUBE. PT IS RECEIVING BOLUS FEEDS TO GRAVITY. PT PROVIDED 1 CARTON OF JEVITY 1.5 AND 250ML WATER TO GRAVITY PER ORDERS. PEG TUBE SITE IS CDI AT THIS TIME. PT HAS A YUSUF CATH IN PLACE, CURRENTLY PATENT AND DRAINING CLEAR YELLOW URINE AT THIS TIME. PT RECEIVING ZOSYN VIA IV AT THE TIME CARE ASSUMED. PT SALINE LOCKED AFTER COMPLETION OF INFUSION. PT HAS HAD VERY FREQUENT LOOSE STOOL. RECTAL TUBE INSERTED AT APPROX 0100. ASSUMED CARE OF PT AT THE TIME OF SHIFT REPORT. WILL CONTINUE TO MONITOR PT.
[2018-08-06 03:51] LABS: BASOPHILS ABSOLUTE AUTO 0.08 K/mm3 (0.00-0.23); BASOPHILS PERCENT AUTO 1 % (0-2); EOSINOPHILS PERCENT AUTO 5 % (0-6); Hematocrit 35.5 % (37.0-53.0); Hemoglobin 11.2 g/dL (13.5-17.5); IMMATURE GRAN ABSOLUTE AUTO 0.05 K/mm3 (0.00-0.10); IMMATURE GRAN PERCENT AUTO 1 % (0-1); LYMPHOCYTES ABSOLUTE AUTO 0.99 K/mm3 (0.84-5.20); LYMPHOCYTES PERCENT AUTO 11 % (21-46); MONOCYTES ABSOLUTE AUTO 0.83 K/mm3 (0.16-1.47); MONOCYTES PERCENT AUTO 9 % (4-13); Mean Corpuscular HGB 29.9 pg (26.0-34.0); Mean Corpuscular HGB Conc 31.5 g/dL (31.5-36.5); Mean Platelet Volume 9.6 fL (9.1-12.4); NEUTROPHILS ABSOLUTE AUTO 6.77 K/mm3 (1.96-9.15); NEUTROPHILS PERCENT AUTO 74 % (41-73); Platelet Count 370 K/mm3 (150-400); RDW Coefficient Variation 13.3 % (11.7-14.2); RDW Standard Deviation 46.7 fL (35.1-46.3); Red Blood Cell Count 3.74 M/mm3 (4.30-5.90); White Blood Cell Count 9.22 K/mm3 (4.00-11.30)
[2018-08-06 03:53] LABS: Mean Corpuscular Volume 95 fL (80-100)
[2018-08-06 04:13] LABS: Albumin, Blood 1.8 g/dL (3.4-5.0); Anion Gap 6 mmol/L (6-16); Blood Urea Nitrogen 15 mg/dL (8-24); Bun/Creatinine Ratio 22.6 (12.0-20.0); CO2, Blood 34 mmol/L (21-32); Calcium, Blood 8.9 mg/dL (8.5-10.1); Chloride, Blood 114 mmol/L (98-108); Creatinine, Blood 0.66 mg/dL (0.60-1.20); Glomerular Filtration Rate >60 (60-); Glucose, Blood 81 mg/dL (70-99); Phosphorus, Blood 2.4 mg/dL (2.5-4.9); Potassium, Blood 2.7 mmol/L (3.5-5.5); Sodium, Blood 154 mmol/L (136-145)
--- NOTE | 2018-08-06 05:37 | NUR ---
PT ARRIVAL. PT ARRIVED ON UNIT AT 0535. TELE WAS PLACED,VS STABLE, RESTRAINTS IN PLACE AND DOCUMENTED PER POLICY. PT'S YUSUF IS PATENT AND DRAINING YELLOW URINE TO GRAVITY. PT'S PEG TUBE IS COVERED WITH ABD BINDER. CALL LIGHT IN REACH, BED IS LOCKED AND LOW WILL CONTINUE TO MONITOR.
--- NOTE | 2018-08-06 06:12 | NUR ---
REPORT AND TRANSFER. REPORT CALLED TO NICOLETTE COLE IN PCU. PT TRANSFERED TO PCU ROOM 8. PT PULLED OUT RECTAL TUBE DESPITE RETRAINTS JUST PRIOR TO TRANSFER TO PCU. PT WAS CLEANED AND ATTENDS REPLACED. PT TRANSFERED WITH ASSISTANCE FROM NICOLETTE COLE IN PCU. ALL QUESTIONS ANSWERED IN REPORT.
--- NOTE | 2018-08-06 07:30 | NUR ---
SHIFT SUMMARY. NO ACUTE CHANGES NOTED, PT IS RESTING IN BED COMFORTABLY. PT'S VS HAVE BEEN STABLE, PT DOES NOT APPEARE TO BE IN ANY DISTRESS AT THIS TIME. CALL LIGHT IN REACH, BED IS LOCKED AND LOW WILL CONTINUE TO MONITOR UNTIL REPORT IS GIVEN TO ONCOMING RN.
[2018-08-06 11:26] LABS: Vancomycin, Trough 18.5 ug/mL (5.0-10.0)
--- NOTE | 2018-08-06 20:18 | NUR ---
PM NOTE. ASSUMED CARE OF PT APROX 1900, PT IS A&O ONLY TO SELF MOST OF THE TIME, PT IS ABLE TO ANSWER APPROPRIATELY SOMETIMES AND ONLY VERY SIMPLE QUESTIONS SUCH IF HE WANTS A BLANKET OR NOT. PT CONTINUES TO HAVE LOOSE STOOLS THIS SHIFT. PT ALSO CONTINUES TO NEED LEFT WRIST RESTRAINTS DUE TO CONSTANT PULLING ON TUBES AND LINES. TELE INTACT, NSR IN THE 70'S, PT'S BP 139/88. TRACE EDEMA NOTED TO THE PT'S RIGHT HAND AND RIGHT FOOT/ANKEL. L/S DIM AND SLIGHTLY COARSE T/O. PT'S O2 STATS ARE >90% ON RA. BT PRESENT AND HYPERACTIVE, ABD IS SOFT BUT GUARDED TO PALP. PT'S PEG TUBE IS INTACT, DRESSING IS C/D/I AT THIS TIME. PT'S YUSUF IS PATENT AND DRAINING TO GRAVITY. CALL LIGHT IN REACH, BED IS LOCKED AND LOW WILL CONTINUE TO MONITOR.
[2018-08-07 03:59] LABS: BASOPHILS PERCENT AUTO 1 % (0-2); EOSINOPHILS ABSOLUTE AUTO 0.97 K/mm3 (0.00-0.68); EOSINOPHILS PERCENT AUTO 9 % (0-6); Hematocrit 35.8 % (37.0-53.0); Hemoglobin 11.2 g/dL (13.5-17.5); IMMATURE GRAN ABSOLUTE AUTO 0.08 K/mm3 (0.00-0.10); IMMATURE GRAN PERCENT AUTO 1 % (0-1); LYMPHOCYTES ABSOLUTE AUTO 1.32 K/mm3 (0.84-5.20); LYMPHOCYTES PERCENT AUTO 12 % (21-46); MONOCYTES ABSOLUTE AUTO 0.97 K/mm3 (0.16-1.47); MONOCYTES PERCENT AUTO 9 % (4-13); Mean Corpuscular HGB 29.4 pg (26.0-34.0); Mean Corpuscular HGB Conc 31.3 g/dL (31.5-36.5); Mean Corpuscular Volume 94 fL (80-100); Mean Platelet Volume 9.4 fL (9.1-12.4); NEUTROPHILS ABSOLUTE AUTO 7.56 K/mm3 (1.96-9.15); NEUTROPHILS PERCENT AUTO 69 % (41-73); Platelet Count 381 K/mm3 (150-400); RDW Coefficient Variation 13.3 % (11.7-14.2); RDW Standard Deviation 46.1 fL (35.1-46.3); Red Blood Cell Count 3.81 M/mm3 (4.30-5.90)
[2018-08-07 04:22] LABS: Albumin, Blood 1.9 g/dL (3.4-5.0); Anion Gap 7 mmol/L (6-16); Blood Urea Nitrogen 14 mg/dL (8-24); Bun/Creatinine Ratio 20.4 (12.0-20.0); CO2, Blood 32 mmol/L (21-32); Calcium, Blood 8.6 mg/dL (8.5-10.1); Chloride, Blood 109 mmol/L (98-108); Creatinine, Blood 0.69 mg/dL (0.60-1.20); Glomerular Filtration Rate >60 (60-); Glucose, Blood 84 mg/dL (70-99); Magnesium, Blood 1.7 mg/dL (1.6-2.4); Phosphorus, Blood 2.4 mg/dL (2.5-4.9); Potassium, Blood 2.7 mmol/L (3.5-5.5); Sodium, Blood 148 mmol/L (136-145)
--- NOTE | 2018-08-07 06:33 | NUR ---
SHIFT SUMMARY. NO ACUTE CHANGES NOTED THIS SHIFT. PT'S VS HAVE BEEN STABLE. PT IS STILL IN SOFT WRIST RESTRAINTS DUE TO PULLING ON HIS PEG TUBE AND IV AND YUSUF. CALL LIGHT IN REACH, BED IS LOCKED AND LOW WILL CONTINUE TO MONITOR UNTIL REPORT IS GIVEN TO ONCOMING RN.
--- NOTE | 2018-08-07 18:08 | NUR ---
END OF SHIFT SUMMARY; PT NOW ON [place] PUMP FEEDING AT 80ML Q4 HOUR FLUSH 100ML JEVITY 960ML TO FEEDING TUBE. PT REMAINS IN SOFT RESTRAINTS. HE IS NO MED NO TELE STATUS. HAS TWO LARGE UNFORMED BM TODAY. 2ND IV START BY JOYCE WILL. PT WORKS WITH PT / OT TODAY. HE IS VERY VERBAL TODAY.
[2018-08-08 04:54] LABS: BASOPHILS ABSOLUTE AUTO 0.06 K/mm3 (0.00-0.23); BASOPHILS PERCENT AUTO 1 % (0-2); EOSINOPHILS PERCENT AUTO 10 % (0-6); Hematocrit 35.1 % (37.0-53.0); Hemoglobin 11.2 g/dL (13.5-17.5); IMMATURE GRAN ABSOLUTE AUTO 0.05 K/mm3 (0.00-0.10); IMMATURE GRAN PERCENT AUTO 1 % (0-1); LYMPHOCYTES ABSOLUTE AUTO 1.21 K/mm3 (0.84-5.20); LYMPHOCYTES PERCENT AUTO 13 % (21-46); MONOCYTES ABSOLUTE AUTO 0.65 K/mm3 (0.16-1.47); MONOCYTES PERCENT AUTO 7 % (4-13); Mean Corpuscular HGB 29.7 pg (26.0-34.0); Mean Corpuscular HGB Conc 31.9 g/dL (31.5-36.5); Mean Corpuscular Volume 93 fL (80-100); Mean Platelet Volume 9.8 fL (9.1-12.4); NEUTROPHILS ABSOLUTE AUTO 6.38 K/mm3 (1.96-9.15); NEUTROPHILS PERCENT AUTO 69 % (41-73); Platelet Count 350 K/mm3 (150-400); RDW Coefficient Variation 13.5 % (11.7-14.2); RDW Standard Deviation 45.6 fL (35.1-46.3); Red Blood Cell Count 3.77 M/mm3 (4.30-5.90); White Blood Cell Count 9.25 K/mm3 (4.00-11.30)
[2018-08-08 05:11] LABS: Albumin, Blood 1.7 g/dL (3.4-5.0); Anion Gap 7 mmol/L (6-16); Blood Urea Nitrogen 12 mg/dL (8-24); Bun/Creatinine Ratio 19.4 (12.0-20.0); CO2, Blood 33 mmol/L (21-32); Calcium, Blood 8.3 mg/dL (8.5-10.1); Chloride, Blood 104 mmol/L (98-108); Creatinine, Blood 0.62 mg/dL (0.60-1.20); Glomerular Filtration Rate >60 (60-); Glucose, Blood 125 mg/dL (70-99); Phosphorus, Blood 3.5 mg/dL (2.5-4.9); Sodium, Blood 144 mmol/L (136-145)
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
[2018-08-08 13:50] LABS: Stool Occult Blood Guaiac 1 Pos (Neg)
--- NOTE | 2018-08-08 15:10 | NUR ---
REPORT TO JULIO WILL WHO WILL ASSUME CARE OF THIS PATIENT
--- NOTE | 2018-08-08 15:23 | NUR ---
update: Assumed care of Pt at this time. LS clear at this time, otherwise agree with AM assessment. Pt appears comfortable with easy respirations, looks to be dosing. Soft wrist restraints in place on L wrist and BLE ankles. Circulation checked. Good peripheral pulses. Abd binder over Peg tube. VSS. Bed alarm on. Will monitor.
--- NOTE | 2018-08-08 19:46 | NUR ---
SHIFT SUMMARY: Pt resting in bed at this time. Appears comfortable. Pt appeared to sleep since assuming care. He did have one extra large BM at around 1700 which he woke up for and was pulling at his attends. Pt was cleaned up and changed at that time. After this Pt fell back asleep. When he was awake he was pulling at his attends, linens as well as any lines he could get ahold of. L wrist restraint and BLE restraints in place per orders. Peg tube feeding running per orders. IVF running per orders. Report was ana cristina to night RN. Stable at end of shift.
[2018-08-09 04:33] LABS: Anion Gap 6 mmol/L (6-16); Blood Urea Nitrogen 12 mg/dL (8-24); Bun/Creatinine Ratio 18.4 (12.0-20.0); CO2, Blood 30 mmol/L (21-32); Calcium, Blood 8.4 mg/dL (8.5-10.1); Chloride, Blood 105 mmol/L (98-108); Creatinine, Blood 0.65 mg/dL (0.60-1.20); Glomerular Filtration Rate >60 (60-); Glucose, Blood 97 mg/dL (70-99); Potassium, Blood 3.2 mmol/L (3.5-5.5); Sodium, Blood 141 mmol/L (136-145)
--- NOTE | 2018-08-09 07:31 | NUR ---
08/09/18 Pt had been turned and changed at 0005. Restraints reapplied after moving and turning patient. Pt with abdominal binder around abdomen covering feeing tube. Patient at 0030 sounded restless and pt found to have pulled his peg tube out, no bleeding, sl serrous drainage noted. Dry drsg was applied by chargeback analyst. Pt left wrist had been restrained appropriately but pt does scoot down and he was able to reach under the binder. Charge teresita states no need to contact Dr at night. Will let Day shift RN know, Pt did say at 0005 when we turned him that "we needed a new plan." Will continue to monitor. Pt is receiving IV fluids. Drsg remains dry and intact.
--- NOTE | 2018-08-09 07:40 | NUR ---
Rn summary: Patient is here for CVA and Aspiration PNA. Pt is in 3 soft restraints to left wrist and nando ankles. Pt can be very restless. Pt has had loose slools x3 at least. Bottom is excoriated, cream applied. Pt is very resltess at times. Oral care given, pt is a mouth breather and mouth is very dry. Appreciated the moisturizer to lips. Drsg to abdomen is clean and dry, he pulled off the first one applied at 0030, Pt has yepez with good output. Pt is in droplet and contact isolation. Vital signs are stable. Day shift RN was notified of feeding tube being pulled out, also day shift charge master analyst. Plan to follow up with day doctor about replacement. Pt is otherwise unchanged. up with about replacement.
[2018-08-09 12:01] LABS: Vancomycin, Trough 20.7 ug/mL (5.0-10.0)
--- NOTE | 2018-08-09 13:55 | NUR ---
08/09/[address] HERE TO PROVIDE ANESTHESIA CARE FOR REPLACEMENT PEG, PLEASE SEE RECORD. History, Chart, Medications and Allergies reviewed before start of procedure. MONITOR INTACT WITH CONTINUOUS PULSE OXIMETRY AND INTERMITTENT BP. O2 VIA N/C INTACT THROUGHOUT SEDATION/PROCEDURE.
--- NOTE | 2018-08-09 17:34 | NUR ---
SHIFT SUMMARY THE PATIENT PRESENTED THIS SHIFT WITHOUT HIS PEG TUBE, HE HAD PULLED IT OUT DURING THE NIGHT. THE PATIENT'S VITALS WERE WNL, A&O TO SELF, LUNGS SOUND WERE COARSE. THE PATIENT IS IN RESTRAINTS AND MONITORED FOR THEM. THE PATIENT DIDNOT GET MOST OF HIS AM MEDICATIONS BECAUSE OF NO ACCESS. THE PATIENT HAD HIS PEG TUBE REPLACED AND RETURNED TO THE FLOOR AT 1440. THE PATIENT'S TUBE FEEDINGS WERE STARTED AGAIN AT 1700. THE PATIENT IS SLEEPING, WILL CONTINUE TO MONITOR.
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
--- NOTE | 2018-08-10 08:00 | NUR ---
pt laying in bed with eyes closed wrist and ankle restraints in place, does not follow commands, is pretty sedate this am, am care, done, he grabs at nurses hands, and pulls on attends, will swear at staff at times, but doesn't seem to connect, lungs are course t/o, resp even and unlabored, no cough noted, hrr, no edema noted, ppp+2, cap refill <3sec, vs stable, afebrile, iv sites are clear and patent, btx4, abd flat soft nontender, yepez cath in place draining clear yellow urine, skin c/w/d, maew, eliu, call light in reach. listening to music, released restraints to check circ, is all good.
[2018-08-10 08:07] LABS: BASOPHILS ABSOLUTE AUTO 0.07 K/mm3 (0.00-0.23); BASOPHILS PERCENT AUTO 1 % (0-2); EOSINOPHILS ABSOLUTE AUTO 0.64 K/mm3 (0.00-0.68); EOSINOPHILS PERCENT AUTO 5 % (0-6); Hematocrit 33.6 % (37.0-53.0); Hemoglobin 10.7 g/dL (13.5-17.5); IMMATURE GRAN ABSOLUTE AUTO 0.06 K/mm3 (0.00-0.10); IMMATURE GRAN PERCENT AUTO 1 % (0-1); LYMPHOCYTES ABSOLUTE AUTO 1.53 K/mm3 (0.84-5.20); LYMPHOCYTES PERCENT AUTO 12 % (21-46); MONOCYTES ABSOLUTE AUTO 0.61 K/mm3 (0.16-1.47); MONOCYTES PERCENT AUTO 5 % (4-13); Mean Corpuscular HGB 29.7 pg (26.0-34.0); Mean Corpuscular HGB Conc 31.8 g/dL (31.5-36.5); Mean Corpuscular Volume 93 fL (80-100); Mean Platelet Volume 9.4 fL (9.1-12.4); NEUTROPHILS ABSOLUTE AUTO 9.72 K/mm3 (1.96-9.15); NEUTROPHILS PERCENT AUTO 77 % (41-73); Platelet Count 429 K/mm3 (150-400); RDW Coefficient Variation 13.8 % (11.7-14.2); RDW Standard Deviation 47.1 fL (35.1-46.3); White Blood Cell Count 12.63 K/mm3 (4.00-11.30)
[2018-08-10 08:27] LABS: Albumin, Blood 1.8 g/dL (3.4-5.0); Anion Gap 8 mmol/L (6-16); Blood Urea Nitrogen 16 mg/dL (8-24); Bun/Creatinine Ratio 19.4 (12.0-20.0); CO2, Blood 29 mmol/L (21-32); Calcium, Blood 8.7 mg/dL (8.5-10.1); Chloride, Blood 106 mmol/L (98-108); Creatinine, Blood 0.82 mg/dL (0.60-1.20); Glomerular Filtration Rate >60 (60-); Glucose, Blood 92 mg/dL (70-99); Potassium, Blood 3.6 mmol/L (3.5-5.5); Sodium, Blood 143 mmol/L (136-145)
--- NOTE | 2018-08-10 13:30 | NUR ---
pt had a incont stool, bed bath given, linen changes, cleaned him up with new attends, restraints were released durring clean up, he did try to swing and grab, positioned him on his side, he immed scooted to his back. call light in reach.
--- NOTE | 2018-08-10 16:05 | NUR ---
When I entered room, I asked Arturo how he was doing. "I'm doing fine" he said quite clearly. However, he did not respond to other comments/questions after that. He appeared a bit restless and sleepy. He was in soft wrist restraints b/c he had pulled out PEG tube during the evening of 08-08-18 according to RN. PEG tube replaced 08-09-18. RN expressed concern regarding the ethics of restraining a pt in order to provide feeding. I researched chart to discover Arturo had pulled out his PEG tube on 07-30-18 as well. It was replaced the following day. The Peg was originally placed 07-15-18. Advised RN to place ethics consult.
--- NOTE | 2018-08-10 19:01 | NUR ---
no acute changes this shift, attempted to turn pt, but he positioned himself, call light in reach.
[2018-08-11 04:06] LABS: BASOPHILS ABSOLUTE AUTO 0.07 K/mm3 (0.00-0.23); BASOPHILS PERCENT AUTO 1 % (0-2); EOSINOPHILS ABSOLUTE AUTO 0.56 K/mm3 (0.00-0.68); EOSINOPHILS PERCENT AUTO 5 % (0-6); Hematocrit 32.6 % (37.0-53.0); Hemoglobin 10.3 g/dL (13.5-17.5); IMMATURE GRAN ABSOLUTE AUTO 0.06 K/mm3 (0.00-0.10); IMMATURE GRAN PERCENT AUTO 1 % (0-1); LYMPHOCYTES PERCENT AUTO 11 % (21-46); MONOCYTES PERCENT AUTO 5 % (4-13); Mean Corpuscular HGB 29.5 pg (26.0-34.0); Mean Corpuscular HGB Conc 31.6 g/dL (31.5-36.5); Mean Corpuscular Volume 93 fL (80-100); Mean Platelet Volume 9.5 fL (9.1-12.4); NEUTROPHILS ABSOLUTE AUTO 9.79 K/mm3 (1.96-9.15); NEUTROPHILS PERCENT AUTO 79 % (41-73); Platelet Count 457 K/mm3 (150-400); RDW Coefficient Variation 13.9 % (11.7-14.2); RDW Standard Deviation 47.2 fL (35.1-46.3); Red Blood Cell Count 3.49 M/mm3 (4.30-5.90); White Blood Cell Count 12.38 K/mm3 (4.00-11.30)
[2018-08-11 04:24] LABS: Alanine Aminotransfer (ALT/SGP 38 U/L (12-78); Albumin, Blood 1.7 g/dL (3.4-5.0); Albumin/Globulin Ratio 0.3 (0.8-1.8); Alk Phos 184 U/L (50-136); Anion Gap 8 mmol/L (6-16); Aspartate Aminotrans (AST/SGOT 19 U/L (12-37); Bilirubin, Total 0.3 mg/dL (0.1-1.0); Blood Urea Nitrogen 20 mg/dL (8-24); Bun/Creatinine Ratio 17.2 (12.0-20.0); CO2, Blood 27 mmol/L (21-32); Calcium, Blood 8.6 mg/dL (8.5-10.1); Chloride, Blood 108 mmol/L (98-108); Creatinine, Blood 1.16 mg/dL (0.60-1.20); Globulin, Blood 5.5 g/dL (2.2-4.0); Glomerular Filtration Rate >60 (60-); Glucose, Blood 121 mg/dL (70-99); Potassium, Blood 3.9 mmol/L (3.5-5.5); Sodium, Blood 143 mmol/L (136-145); Total Protein, Blood 7.2 g/dL (6.4-8.2)
--- NOTE | 2018-08-11 07:33 | NUR ---
SHIFT SUMMARY- PT IS ORIENTED TO SELF ONLY, UNABLE TO FOLLOW COMMANDS AND PULLS AT ATTENDS, GOWN, NASAL CANNULA, ABDOMINAL BINDER, AND PULLS ON STAFF MEMBERS WHEN WRIST RESTRAINTS TEMPORARILY REMOVED FOR ASSESSMENT AND ROM. MITT RESTRAINTS ADDED PER DR RAHMAN ORDER DUE TO PT REMOVING PEG TUBE. RESTRAINTS TO ALL EXTREMITIES- CIRCULATION REMAINS INTACT. R SIDED WEAKNESS, BUT GROSS MOVEMENT NOTED. PT REPOSITIONED Q2, BUT CONTINUES TO SHIFT HIMSELF TOWARDS RIGHT SIDE. MEPILEX DRESSINGS PLACED TO COCCYX AND BILATERAL HIPS TO MAINTAIN SKIN INTEGRITY. ATTENDS CHANGED MULTIPLE TIMES FOR INCONTINANCE OF STOOL AND URINE LEAKAGE AROUND YUSUF CATHETER- BALLOON DEFLATED AND REINFLATED TO ENSURE FULL INFLATION. PT REFUSED ORAL CARE WHEN ATTEMPTED INITIALLY, BUT WAS COOPERATIVE TWO TIMES THIS AM- ABLE TO SUCTION THICK, WHITE MUCOUS FROM ROOF OF MOUTH. PT CONTINUES TO REMOVE NASAL CANNULA FROM FACE- O2 SATS REMAIN >90% ON RA. RESPIRATIONS EVEN AND UNLABORED WITH NO S/SX OF RESPIRATORY DISTRESS. NO OTHER CHANGES NOTED FROM INITIAL ASSESSMENT. WILL CONTINUE TO MONITOR AND REPORT TO ONCOMING RN. BED IN LOW POSITION, CALL LIGHT IN REACH. BED ALARM SET FOR SAFETY.
--- NOTE | 2018-08-11 07:45 | NUR ---
INITIAL ASSESSMENT: Pt resting in bed in 4 point restraints with mits on. Pt mumbles at times, usually uncomprehensable. LS clear. BT positive. PUlses palp. Edema present in Right foot. Song cath intact, small amount of clear, yellow urine in cath bag. Pt appears comfortable. Large liquid BM that is orange in color. Pt was cleaned up and changed. Buttock and scrotum almost excoriated. Medicated with Nystatin cream. Oral care done. Will continue to monitor per orders.
--- NOTE | 2018-08-11 14:43 | NUR ---
update: Pt still with minimal amount of urine in cath bag. Abd distended and bladder is visibly enlarged. Song cath removed and Pt started to void a very large amount of urine. When he stopped voiding bladder was still visibly enlarged but less firm. New 16f cude cath placed for urinary retention by student nurse. Very large quantity of urine drained with cloudy urine at the end of the draining. Pt also had a large, liquid orange BM. Was Cleaned up and changed. will monitor.
[2018-08-11 15:29] LABS: Source, Urine Catheter
[2018-08-11 16:11] LABS: Bilirubin, Urine Neg (Neg); Blood, Urine 5+ (Neg); Glucose Qualitative, Urine Neg (Neg); Ketones, Urine Neg (Neg); Leukocyte Esterase, Urine 3+ (Neg); Nitrite, Urine Neg (Neg); Protein, Urine 2+ (Neg); Urobilinogen, Urine NORM (Normal)
[2018-08-11 16:51] LABS: Appearance, Urine Turbid (Clear); Color, Urine Yellow (P-Yellow)
[2018-08-11 16:53] LABS: Bacteria Mod /hpf; Squamous Epithelial Cells Mod /hpf (Few); White Blood Cells, Urine TNTC /hpf (0-5); Yeast/Fungi Urine Mod /hpf
[2018-08-11 16:54] LABS: Amorphous Light (0-Heavy)
--- NOTE | 2018-08-11 18:23 | NUR ---
SHIFT SUMMARY: Pt Resting in bed. Appears comfortable. Song cath draining yellow urine, some cloudiness to it. Pt has good circulation to all extrimities. Pt still in soft restraints to all extrimities and mits to hands. Peg tube intact, feeding to be started tonight. Pt VSS throughout shift. No acute changes. Stable at end of shift. Will report to night RN.
--- NOTE | 2018-08-11 20:10 | NUR ---
ASSUMED CARE- PT CARE ASSUMED AT APPROXIMATELY 1930. PT RESTING IN BED QUIETLY, L ARM FIDGETING WITH MITT RESTRAINT IN ATTEMPTS TO PULL OFF. WHEN ASSESSING CIRCULATION AND REMOVING RESTRAINTS TO BLE'S, PT RELAXED AND NON-COMBATIVE WITH LEGS, BLE RESTRAINTS REMOVED AT THIS POINT FOR PATIENT COMFORT- WILL CONTINUE TO ASSESS FOR NEED. BILATERAL WRIST RESTRAINTS REMAIN IN PLACE WITH MITTS AT THIS TIME. CIRCULATION AND SKIN INTACT AND WNL. O2 SATS ARE 97% ON RA, RESPIRATIONS EVEN AND UNLABORED. NO COUGH NOTED AT THIS TIME. PT CONTINUES TO SPEAK INCOHERENTLY WITH A FEW CLEAR WORDS TO SIMPLE QUESTIONS, ORIENTED TO SELF AND TOWN- DISORIENTED TO YEAR AND SURROUNDINGS. PT IS CURRENLTY COOPERATIVE WITH ALL CARE, BUT CONTINUES TO RUB ABDOMINAL BINDER WITH L MITTED HAND OVER PEG TUBE. PT DENIES PAIN TO ABDOMEN AND IT IS CURRENTLY SOFT AND NON-DISTENDED. YUSUF CATHETER IS PATENT AND DRAINING TO GRAVITY WITH YELLOW, CLOUDY URINE. WILL CONTINUE TO MONITOR AND ASSESS. BED IN LOW POSITION, BED ALARM SET FOR SAFETY.
[2018-08-12 04:24] LABS: BASOPHILS ABSOLUTE AUTO 0.08 K/mm3 (0.00-0.23); BASOPHILS PERCENT AUTO 1 % (0-2); EOSINOPHILS ABSOLUTE AUTO 0.57 K/mm3 (0.00-0.68); EOSINOPHILS PERCENT AUTO 5 % (0-6); Hematocrit 30.5 % (37.0-53.0); Hemoglobin 9.6 g/dL (13.5-17.5); IMMATURE GRAN ABSOLUTE AUTO 0.03 K/mm3 (0.00-0.10); IMMATURE GRAN PERCENT AUTO 0 % (0-1); LYMPHOCYTES ABSOLUTE AUTO 1.28 K/mm3 (0.84-5.20); LYMPHOCYTES PERCENT AUTO 12 % (21-46); MONOCYTES ABSOLUTE AUTO 0.58 K/mm3 (0.16-1.47); MONOCYTES PERCENT AUTO 5 % (4-13); Mean Corpuscular HGB 30.4 pg (26.0-34.0); Mean Corpuscular HGB Conc 31.5 g/dL (31.5-36.5); Mean Platelet Volume 9.2 fL (9.1-12.4); NEUTROPHILS ABSOLUTE AUTO 8.39 K/mm3 (1.96-9.15); NEUTROPHILS PERCENT AUTO 77 % (41-73); Platelet Count 421 K/mm3 (150-400); RDW Standard Deviation 49.2 fL (35.1-46.3); Red Blood Cell Count 3.16 M/mm3 (4.30-5.90); White Blood Cell Count 10.93 K/mm3 (4.00-11.30)
[2018-08-12 04:30] LABS: Mean Corpuscular Volume 97 fL (80-100)
[2018-08-12 04:49] LABS: Alanine Aminotransfer (ALT/SGP 34 U/L (12-78); Albumin, Blood 1.5 g/dL (3.4-5.0); Albumin/Globulin Ratio 0.3 (0.8-1.8); Alk Phos 165 U/L (50-136); Anion Gap 7 mmol/L (6-16); Aspartate Aminotrans (AST/SGOT 19 U/L (12-37); Bilirubin, Total 0.2 mg/dL (0.1-1.0); Blood Urea Nitrogen 20 mg/dL (8-24); Bun/Creatinine Ratio 17.7 (12.0-20.0); CO2, Blood 28 mmol/L (21-32); Calcium, Blood 8.8 mg/dL (8.5-10.1); Chloride, Blood 113 mmol/L (98-108); Creatinine, Blood 1.13 mg/dL (0.60-1.20); Globulin, Blood 4.9 g/dL (2.2-4.0); Glomerular Filtration Rate >60 (60-); Glucose, Blood 120 mg/dL (70-99); Potassium, Blood 4.1 mmol/L (3.5-5.5); Sodium, Blood 148 mmol/L (136-145); Total Protein, Blood 6.4 g/dL (6.4-8.2)
--- NOTE | 2018-08-12 06:50 | NUR ---
SHIFT SUMMARY- PT MENTATION HAS IMPROVED SLIGHTLY THROUGHOUT THE NIGHT; REMAINS UNABLE TO ANSWER ORIENTATION QUESTIONS, BUT CAN ANSWER SIMPLE YES OR NO QUESTIONS WELL. REQUIRES FREQUENT REORIENTATION AND EXPLANATION FOR INTERVENTIONS. CONTINUES TO ATTEMPT REMOVAL OF MITT RESTRAINTS AND ATTEMPTS TO PULL AT ABDOMINAL BINDER AND TUBES UPON RELEASE OF WRIST RESTRAINTS FOR CIRCULATION CHECKS, BUT IS NOT COMBATIVE WITH STAFF UPON CARE. PT COOPERATIVE WITH SKIN CARE, ORAL CARE, AND SERGEY/CATHETER CARE. BUTTOCKS REMAINS RED AND EXCORIATED- BARRIER CREAM APPLIED FREQUENTLY. YUSUF HAS REMAINED PATENT AND DRAINING TO GRAVITY. O2 SATS HAVE REMAINED >90% ON RA. NO OTHER CHANGES FROM INITIAL ASSESSMENT. WILL CONTINUE TO MONITOR AND REPORT TO ONCOMING SHIFT RN. BED IN LOW POSITION, CALL LIGHT IN REACH. BED ALARM SET FOR SAFETY.
--- NOTE | 2018-08-12 07:46 | NUR ---
INITIAL ASSESSMENT: Pt resting in bed. Awake, talking, incomprehensable speech most of the time. Pt is able to follow some directions but is confused and forgetful. Very fidgety and attempting to pull at everything. LS clear but diminished in bases. HR reg. BT positive. PUlses palp. BUE with soft wrist restraints on and mits on. Darell to R hand removed. Only gross movement of his R arm. Oral care completed. Peg tube with TF running per orders. VSS. IVF running per orders. Bed alarm on. WIll continue to monitor.
--- NOTE | 2018-08-12 15:18 | NUR ---
Arturo was confused and pulling at restraints at time of visit. The mitt on his left hand appeared to be an irritation. He appears frail. According to RN, he was more lucid this morning. He did not respond to me verbally, but looked at me blankly. Provided calm presence of love and calm words of asurance.
--- NOTE | 2018-08-12 15:47 | NUR ---
Pt gave consent to be cared for on 08/12/18 for 08/13/18.
--- NOTE | 2018-08-12 16:59 | NUR ---
update: Report was given to Medical floor RN. Pt still in BUE soft wrist restraints and mitt to LUE. Pt has been more vocal today, but still incomprehensable speech. Stable at time of transfer.
--- NOTE | 2018-08-12 17:47 | NUR ---
PT ARRIVED TO THE MEDICAL FLOOR FROM THE PCU ALERT, APPEARS PLEASANT SAID HI, AND CAN ANSWER SOME YES/NO QUESTIONS, OTHERWISE THE PT HAS INCOMPREHENSIBLE SPEECH DUE TO CVA WITH RIGHT SIDE DEFICITS, TUBE FEED WAS STARTED UPON ARRIVAL TO THE ROOM, PT IS AWAKE IN RESTRAINTS DUE TO PULLING AT TUBES/LINES, PT WAS ORIENTED TO THE ROOM CALL SYSTEM, SCUD'S APPLIED, BED ALARM ON
--- NOTE | 2018-08-12 18:42 | NUR ---
PATIENT DID NOT EAT DINNER THIS SHIFT DUE TO BEING NPO AT THIS TIME.
--- NOTE | 2018-08-13 05:30 | NUR ---
SHIFT SUMMARY PT AWAKE AT START OF SHIFT, WATCHING TV. CONTINOUS TUBE FEED STARTED PRIOR TO NOC SHIFT. NEARING COMPLETION AT THIS TIME. PO MEDS ADMINISTERED PER EMAR THRU PEG. PT INCONTINENT OF STOOL A COUPLE OF TIMES. SERGEY AREA REDNESS NOTED. MEPILEX DRSG TO R HIP; C/D/I. ABD BINDER IN PLACE TO HIDE PEG TUBE. BL SOFT WRIST RESTRAINTS IN PLACE, WELL L HAND MITT; TO PROTECT TUBINGS. SKIN FRAGILE, THIN AND DRY ON ARMS. HEEL PROTECTORS IN PLACE. ATTEMPTED ORAL CARE A COUPLE OF TIMES, PT FINALLY ALLOWED CONCRETE FINISHER APPRENTICE TO PROVIDE. PT TX'D FROM PCU PRIOR TO START OF NOC SHIFT. ETHIC'S CONSULT ORDERED FOR GUARDIANSHIP. UNABLE TO UNDERSTAND MOST OF PT'S SPEECH. ABLE TO ANS SOME YES AND NO QUESTIONS. NO C/O PAIN. HOB ELEVATED PER TUBE FEED. BED ALARM ON FOR SAFETY.
[2018-08-13 05:38] LABS: BASOPHILS ABSOLUTE AUTO 0.07 K/mm3 (0.00-0.23); BASOPHILS PERCENT AUTO 1 % (0-2); EOSINOPHILS PERCENT AUTO 5 % (0-6); Hematocrit 33.8 % (37.0-53.0); Hemoglobin 10.6 g/dL (13.5-17.5); IMMATURE GRAN ABSOLUTE AUTO 0.03 K/mm3 (0.00-0.10); IMMATURE GRAN PERCENT AUTO 0 % (0-1); LYMPHOCYTES ABSOLUTE AUTO 1.78 K/mm3 (0.84-5.20); LYMPHOCYTES PERCENT AUTO 18 % (21-46); MONOCYTES ABSOLUTE AUTO 0.66 K/mm3 (0.16-1.47); MONOCYTES PERCENT AUTO 7 % (4-13); Mean Corpuscular HGB 29.6 pg (26.0-34.0); Mean Corpuscular HGB Conc 31.4 g/dL (31.5-36.5); Mean Platelet Volume 9.3 fL (9.1-12.4); NEUTROPHILS ABSOLUTE AUTO 6.89 K/mm3 (1.96-9.15); NEUTROPHILS PERCENT AUTO 70 % (41-73); Platelet Count 539 K/mm3 (150-400); RDW Coefficient Variation 14.1 % (11.7-14.2); RDW Standard Deviation 48.9 fL (35.1-46.3); Red Blood Cell Count 3.58 M/mm3 (4.30-5.90); White Blood Cell Count 9.93 K/mm3 (4.00-11.30)
[2018-08-13 05:39] LABS: Mean Corpuscular Volume 94 fL (80-100)
[2018-08-13 06:12] LABS: Alanine Aminotransfer (ALT/SGP 37 U/L (12-78); Albumin, Blood 1.8 g/dL (3.4-5.0); Albumin/Globulin Ratio 0.3 (0.8-1.8); Alk Phos 198 U/L (50-136); Anion Gap 7 mmol/L (6-16); Aspartate Aminotrans (AST/SGOT 20 U/L (12-37); Bilirubin, Total 0.5 mg/dL (0.1-1.0); Blood Urea Nitrogen 17 mg/dL (8-24); CO2, Blood 29 mmol/L (21-32); Calcium, Blood 8.9 mg/dL (8.5-10.1); Chloride, Blood 109 mmol/L (98-108); Creatinine, Blood 0.85 mg/dL (0.60-1.20); Globulin, Blood 5.7 g/dL (2.2-4.0); Glomerular Filtration Rate >60 (60-); Glucose, Blood 116 mg/dL (70-99); Sodium, Blood 145 mmol/L (136-145); Total Protein, Blood 7.5 g/dL (6.4-8.2)
--- NOTE | 2018-08-13 08:45 | NUR ---
PATIENT DID NOT EAT ANY BREAKFAST THIS SHIFT DUE TO BEING NPO AT THIS TIME.
--- NOTE | 2018-08-13 12:53 | NUR ---
PATIENT DID NOT EAT LUNCH THIS SHIFT DUE TO BEING NPO AT THIS TIME.
--- NOTE | 2018-08-13 14:35 | NUR ---
Met pt. lying in bed still confused offered some prayers and blessed pt.
--- NOTE | 2018-08-13 15:52 | NUR ---
pt resting review of pt with nursing staff and gabriela jacobs for continued ethics review and physician support
--- NOTE | 2018-08-13 17:42 | NUR ---
PT IS ALERT, AWAKE FOR MOST OF THE DAY, PT REMAINED IN WRIST RESTRAINTS T/O THE DAY, THE PT APPEARED TO BE BREATHING EASILY ON RA, THE PT WAS UP TO THE SIDE OF THE BED X1 TODAY WITH THE OCCUPATIONAL THERAPIST, MEPILEX APPLIED TO COCCYX , TUBE FEEDING STARTED AT 1700 AND INCREASED TO 90ML/HR, NO OTHER CHANGES NOTICED THIS SHIFT
--- NOTE | 2018-08-13 17:51 | NUR ---
PATIENT DID NOT EAT DINNER THIS SHIFT DUE TO BEING NPO AT THIS TIME.
--- NOTE | 2018-08-13 18:16 | NUR ---
Arturo says, "Hi" when I walk to bedside. He appears to try to say more, but it is unintelligable. When asked about pain, he nodds yes. When asked a different way a moment later, he shakes head "no." He appears restless, pulling softly at restraints and lifting his mitted hand towards me. I held his hand for awhile, providing calm presence. Stroked his forehead and he closed his eyes. He appeared comforted by these actions. I will remain available.
[2018-08-14 04:36] LABS: BASOPHILS ABSOLUTE AUTO 0.09 K/mm3 (0.00-0.23); BASOPHILS PERCENT AUTO 1 % (0-2); EOSINOPHILS ABSOLUTE AUTO 0.57 K/mm3 (0.00-0.68); EOSINOPHILS PERCENT AUTO 6 % (0-6); Hematocrit 33.6 % (37.0-53.0); Hemoglobin 10.6 g/dL (13.5-17.5); IMMATURE GRAN ABSOLUTE AUTO 0.04 K/mm3 (0.00-0.10); IMMATURE GRAN PERCENT AUTO 0 % (0-1); LYMPHOCYTES ABSOLUTE AUTO 1.54 K/mm3 (0.84-5.20); LYMPHOCYTES PERCENT AUTO 15 % (21-46); MONOCYTES ABSOLUTE AUTO 0.65 K/mm3 (0.16-1.47); MONOCYTES PERCENT AUTO 6 % (4-13); Mean Corpuscular HGB 29.7 pg (26.0-34.0); Mean Corpuscular HGB Conc 31.5 g/dL (31.5-36.5); Mean Corpuscular Volume 94 fL (80-100); NEUTROPHILS ABSOLUTE AUTO 7.32 K/mm3 (1.96-9.15); NEUTROPHILS PERCENT AUTO 72 % (41-73); Platelet Count 507 K/mm3 (150-400); RDW Coefficient Variation 14.1 % (11.7-14.2); RDW Standard Deviation 48.8 fL (35.1-46.3); Red Blood Cell Count 3.57 M/mm3 (4.30-5.90); White Blood Cell Count 10.21 K/mm3 (4.00-11.30)
--- NOTE | 2018-08-14 04:41 | NUR ---
*SHIFT SUMMARY* UNABLE TO DETERMINE PATIENT'S AWARENESS. PATIENT HAS EYES OPEN AND MUMBLES. SPEECH IS GARBLED. PATIENT HAD SEVERAL BOWEL MOVEMENTS THROUGHOUT THE NIGHT, EVERYTIME STAFF ROLLED PATIENT HE HAD LOOSE STOOL. SKIN IS RAW AND HAS A RASH AROUND GROIN. HOB ELEVATED 30-45 DEGREES ORDERED DURING TUBE FEEDS. PATIENT KICKED OFF HEEL PROTECTORS. VITAL SIGNS STABLE. ON ROOM AIR, NO LABORED BREATHING NOTED. WRIST RESTRAINT ON LEFT WRIST, ALONG WITH LEFT MITTEN RESTRAINT. TO PREVENT FROM PULLING OUT PEG TUBE OR IV. BED LOWERED AND LOCKED WITH CALL LIGHT IN REACH.
[2018-08-14 05:01] LABS: Anion Gap 6 mmol/L (6-16); Blood Urea Nitrogen 20 mg/dL (8-24); CO2, Blood 29 mmol/L (21-32); Calcium, Blood 8.8 mg/dL (8.5-10.1); Chloride, Blood 105 mmol/L (98-108); Creatinine, Blood 0.83 mg/dL (0.60-1.20); Glomerular Filtration Rate >60 (60-); Glucose, Blood 91 mg/dL (70-99); Potassium, Blood 4.2 mmol/L (3.5-5.5); Sodium, Blood 140 mmol/L (136-145)
--- NOTE | 2018-08-14 13:28 | NUR ---
Met pt in bed and his therapist in the room attending to his needsm prayed for pt.
--- NOTE | 2018-08-14 16:22 | NUR ---
PATIENT FELL OUT OF THE BED THIS AFTERNOON. PATIENT'S BED ALARM HAS BEEN ON ALL DAY, HE IS FLINGING HIS LEGS OVER THE SIDE OF THE BED. HE SLID OFF THE BED ONTO THE FLOOR, FOUND BY THE SLUMBER ROOM ATTENDANT. PATIENT DENIES ANY INJURY, DENIES PAIN. WILL ASSESS FOR ANY CHANGES. DR. CASTELLANO HAS BEEN NOTIFIED. IRIS TO BE DONE. WILL GIVE NUMBER TO ALFRED WHEN THE IRIS IS DONE.
--- NOTE | 2018-08-14 18:20 | NUR ---
SHIFT SUMMARY PATIENT IS IN MITT ON HIS LEFT HAND, AND HAS TUBE FEEDINGS THROUGHOUT THE NIGHT. HE HAS R SIDED WEAKNESS RELATED TO A STROKE. PATIENT HAS LOSS OF INDEPENDENCE AND SANTANA BY BEING AGRESSIVE WHEN HE GETS IRRITABLE. NO ACUTE CHANGES AT THIS TIME. PATIENT DID HAVE A FALL, IRIS IS DONE, BED ALARM WAS ON. WILL NEED TO KEEP EYES ON PATIENT AND FREQUENT ROUNDING.
[2018-08-15 05:22] LABS: BASOPHILS ABSOLUTE AUTO 0.07 K/mm3 (0.00-0.23); BASOPHILS PERCENT AUTO 1 % (0-2); EOSINOPHILS ABSOLUTE AUTO 0.32 K/mm3 (0.00-0.68); EOSINOPHILS PERCENT AUTO 4 % (0-6); Hematocrit 31.5 % (37.0-53.0); IMMATURE GRAN ABSOLUTE AUTO 0.02 K/mm3 (0.00-0.10); IMMATURE GRAN PERCENT AUTO 0 % (0-1); LYMPHOCYTES ABSOLUTE AUTO 1.54 K/mm3 (0.84-5.20); LYMPHOCYTES PERCENT AUTO 19 % (21-46); MONOCYTES ABSOLUTE AUTO 0.54 K/mm3 (0.16-1.47); MONOCYTES PERCENT AUTO 7 % (4-13); Mean Corpuscular HGB 29.9 pg (26.0-34.0); Mean Corpuscular HGB Conc 31.7 g/dL (31.5-36.5); Mean Corpuscular Volume 94 fL (80-100); Mean Platelet Volume 9.4 fL (9.1-12.4); NEUTROPHILS ABSOLUTE AUTO 5.77 K/mm3 (1.96-9.15); NEUTROPHILS PERCENT AUTO 70 % (41-73); Platelet Count 550 K/mm3 (150-400); RDW Coefficient Variation 14.1 % (11.7-14.2); RDW Standard Deviation 47.4 fL (35.1-46.3); Red Blood Cell Count 3.35 M/mm3 (4.30-5.90); White Blood Cell Count 8.26 K/mm3 (4.00-11.30)
[2018-08-15 06:10] LABS: Anion Gap 6 mmol/L (6-16); Blood Urea Nitrogen 22 mg/dL (8-24); Bun/Creatinine Ratio 25.7 (12.0-20.0); CO2, Blood 29 mmol/L (21-32); Calcium, Blood 8.6 mg/dL (8.5-10.1); Chloride, Blood 104 mmol/L (98-108); Creatinine, Blood 0.86 mg/dL (0.60-1.20); Glomerular Filtration Rate >60 (60-); Glucose, Blood 116 mg/dL (70-99); Sodium, Blood 139 mmol/L (136-145)
--- NOTE | 2018-08-15 18:56 | NUR ---
SHIFT SUMMARY: NO ACUTE CHANGES TO REPORT THIS SHIFT. PT ALERT; ORIENTED TO SELF; CONFUSED; COMBATIVE; [place] VEST & MITT REMAIN IN PLACE. PEG TUBE IN PLACE; JEVITY 1.5 @ 90 ML/HR FROM 1700 QD. MEDS THROUGH PEG TUBE. YUSUF IN PLACE; PATENT AND DRAINING. PT ON BEDREST. AWAITING PLACEMENT. REPORT GIVEN TO ONCOMING RN.
[2018-08-16 05:08] LABS: BASOPHILS PERCENT AUTO 1 % (0-2); EOSINOPHILS ABSOLUTE AUTO 0.24 K/mm3 (0.00-0.68); EOSINOPHILS PERCENT AUTO 2 % (0-6); Hemoglobin 10.9 g/dL (13.5-17.5); IMMATURE GRAN ABSOLUTE AUTO 0.02 K/mm3 (0.00-0.10); IMMATURE GRAN PERCENT AUTO 0 % (0-1); LYMPHOCYTES ABSOLUTE AUTO 1.67 K/mm3 (0.84-5.20); LYMPHOCYTES PERCENT AUTO 16 % (21-46); MONOCYTES ABSOLUTE AUTO 0.69 K/mm3 (0.16-1.47); MONOCYTES PERCENT AUTO 7 % (4-13); Mean Corpuscular HGB 29.3 pg (26.0-34.0); Mean Corpuscular HGB Conc 32.1 g/dL (31.5-36.5); Mean Platelet Volume 9.2 fL (9.1-12.4); NEUTROPHILS ABSOLUTE AUTO 7.66 K/mm3 (1.96-9.15); NEUTROPHILS PERCENT AUTO 74 % (41-73); Platelet Count 582 K/mm3 (150-400); RDW Coefficient Variation 13.9 % (11.7-14.2); RDW Standard Deviation 46.5 fL (35.1-46.3); Red Blood Cell Count 3.72 M/mm3 (4.30-5.90); White Blood Cell Count 10.38 K/mm3 (4.00-11.30)
[2018-08-16 05:11] LABS: Mean Corpuscular Volume 91 fL (80-100)
--- NOTE | 2018-08-16 05:14 | NUR ---
SHIFT SUMMARY PT HAD SLEPT SOME DURING THE NIGHT. PT WAS AGITATED FREQUENTLY AND CONTINUED TO HANG HIS LEG OVER SIDE OF BED. DURING CHANGES PT RESISTED BY FLAILING AND THRASHING. PT TRIED TO COMMUNICATE BUT WOULD BECOME FRUSTRATED. NO ACUTE ISSUES NOTED. PT IS CURRENTLY AWAKE AND AGITATED. CALL LIGHT IN REACH.
[2018-08-16 05:26] LABS: Anion Gap 7 mmol/L (6-16); Blood Urea Nitrogen 18 mg/dL (8-24); CO2, Blood 29 mmol/L (21-32); Calcium, Blood 8.8 mg/dL (8.5-10.1); Chloride, Blood 103 mmol/L (98-108); Creatinine, Blood 0.67 mg/dL (0.60-1.20); Glomerular Filtration Rate >60 (60-); Glucose, Blood 127 mg/dL (70-99); Potassium, Blood 4.1 mmol/L (3.5-5.5); Sodium, Blood 139 mmol/L (136-145)
--- NOTE | 2018-08-16 19:25 | NUR ---
SHIFT SUMMARY CACHECTIC. GARBLED SPEECH. CONFUSED. MITT AND UPPER EXT RESTRAINTS IN PLACE. RIGHT SIDED WEAKNESS. YUSUF. NO BM TODAY. PEG TUBE WNL AND TUBE FEEDING INFUSING AT THIS TIME. ATIVAN GIVEN FOR AGITATIION ONCE EARLY IN SHIFT. NO PROGRESS IN PLACEMENT TODAY.
[2018-08-17 04:39] LABS: BASOPHILS ABSOLUTE AUTO 0.08 K/mm3 (0.00-0.23); BASOPHILS PERCENT AUTO 1 % (0-2); EOSINOPHILS ABSOLUTE AUTO 0.17 K/mm3 (0.00-0.68); EOSINOPHILS PERCENT AUTO 2 % (0-6); Hematocrit 33.1 % (37.0-53.0); Hemoglobin 10.6 g/dL (13.5-17.5); IMMATURE GRAN ABSOLUTE AUTO 0.02 K/mm3 (0.00-0.10); IMMATURE GRAN PERCENT AUTO 0 % (0-1); LYMPHOCYTES ABSOLUTE AUTO 1.35 K/mm3 (0.84-5.20); LYMPHOCYTES PERCENT AUTO 15 % (21-46); MONOCYTES ABSOLUTE AUTO 0.69 K/mm3 (0.16-1.47); MONOCYTES PERCENT AUTO 8 % (4-13); Mean Corpuscular HGB 29.7 pg (26.0-34.0); Mean Corpuscular Volume 93 fL (80-100); Mean Platelet Volume 9.3 fL (9.1-12.4); NEUTROPHILS PERCENT AUTO 74 % (41-73); Platelet Count 523 K/mm3 (150-400); RDW Coefficient Variation 13.8 % (11.7-14.2); RDW Standard Deviation 47.3 fL (35.1-46.3); Red Blood Cell Count 3.57 M/mm3 (4.30-5.90); White Blood Cell Count 8.91 K/mm3 (4.00-11.30)
--- NOTE | 2018-08-17 05:15 | NUR ---
SHIFT SUMMARY PT WAS AGITATED AT BEGINNING OF SHIFT. PT WAS GETTING HIS LEGS OVER THE SIDERAILS. REMOTE MONITOR CALLED TO INFORM OF PT MOVING LEGS OVER SIDERAILS. PT BECAME RELAXED AND WAS ABLE TO SLEEP AFTER EVENING MEDS. ADDITIONALY, PT WAS TX FOR ANXIETY PER EMAR. PT HAS SLEPT WELL WITHOUT ISSUES AFTER MEDS. PT HAD NO ACUTE ISSUES AND IS BREATHING EASY. CALL LIGHT IN REACH.
--- NOTE | 2018-08-17 19:00 | NUR ---
SHIFT SUMMARY PT RESTLESS IN BED ON AND OFF THROUGH DAY. SLIDES DOWN IN BED FREQUENTLY AND NEEDS REPOSITIONED. ORAL CARE COMPLETED SEVERAL TIMES DUE TO DRY MOUTH AND QUICKLY FILLING WITH DRIED SECRETIONS. DOZING LATER THIS AFTERNOON AND EVENING AND REMAINS IN APPROPRIATE POSITIONING ONCE TUBE FEEDING STARTED. SPEAKING BUT HARD TO UNDERSTAND AT TIMES. COMMENTING ON BEING SO THIRSTY THIS MORNING PRIOR TO ORAL CARE BEING DONE. SWEARING MID MORNING BUT EASILY CALMED AND FOLLOWS SIMPLE DIRECTIONS.
--- NOTE | 2018-08-18 04:03 | NUR ---
SHIFT SUMMARY NO APPARENT SIGNS OF ACUTE DISTRESS SO FAR THIS SHIFT. THE PT APPEARED TO SLEEP COMFORTABLY FOR A SHORT TIME AT THE BEGINNING OF SHIFT BUT HAS BEEN AWAKE THROUGHOUT THE REST OF THIS NIGHT SO FAR. THE PT APPEARES AGITATED, COMBATIVE, PULLING AT RESTRAINTS, PEG TUBE AND IV LINE. THE PT CONTINUALLY MOVES SELF DOWN IN BED AFTER REPOSITIONING IN CORRECT POSTIION FOR PEG TUBE. ORAL CARE COMPLETED AND PT DID APPEAR TO TOLLERATE THIS WELL. THE PT IS AWAKE AT THIS TIME PULLING LEGS UP AND LIFTING BOTTOM OFF OF BED. PEG TUBE CONTINUES AT THIS TIME. RESIDUAL CHECKS WERE ABOUT 30MLS SO FAR THIS SHIFT. NO APPARENT SIGNS OF ACUTE DISTRESS. WILL CONTINUE TO MONITOR.
--- NOTE | 2018-08-18 13:39 | NUR ---
Met pt. in bed and his nurse in the room attending him in his needs .There seems to be that pt. is much better , prayed for pt.
--- NOTE | 2018-08-18 17:44 | NUR ---
SHIFT SUMMARY PT HAS HAD NO ACUTE CHANGES THIS SHIFT, MEDICATED 1X FOR PAIN, 1X FOR ANXIETY, REPOSITIONED Q2 FOR COMFORT, PT APPEARS TO BE SLEEPING AT THIS TIME, WILL CONT TO MONITOR UNTIL REPORT GIVEN TO NOC RN.
[2018-08-19 05:15] LABS: BASOPHILS PERCENT AUTO 1 % (0-2); EOSINOPHILS ABSOLUTE AUTO 0.14 K/mm3 (0.00-0.68); EOSINOPHILS PERCENT AUTO 1 % (0-6); Hematocrit 34.5 % (37.0-53.0); Hemoglobin 10.9 g/dL (13.5-17.5); IMMATURE GRAN ABSOLUTE AUTO 0.03 K/mm3 (0.00-0.10); IMMATURE GRAN PERCENT AUTO 0 % (0-1); LYMPHOCYTES ABSOLUTE AUTO 1.21 K/mm3 (0.84-5.20); LYMPHOCYTES PERCENT AUTO 11 % (21-46); MONOCYTES ABSOLUTE AUTO 0.78 K/mm3 (0.16-1.47); MONOCYTES PERCENT AUTO 7 % (4-13); Mean Corpuscular HGB 28.7 pg (26.0-34.0); Mean Corpuscular HGB Conc 31.6 g/dL (31.5-36.5); Mean Corpuscular Volume 91 fL (80-100); Mean Platelet Volume 9.3 fL (9.1-12.4); NEUTROPHILS ABSOLUTE AUTO 8.66 K/mm3 (1.96-9.15); NEUTROPHILS PERCENT AUTO 79 % (41-73); Platelet Count 580 K/mm3 (150-400); RDW Coefficient Variation 14.1 % (11.7-14.2); RDW Standard Deviation 46.6 fL (35.1-46.3); White Blood Cell Count 10.92 K/mm3 (4.00-11.30)
--- NOTE | 2018-08-19 05:23 | NUR ---
SHIFT SUMMARY THE PT CONTINUES TO BE COMBATIVE, YELLING VULGAR LANGUAGE. THE PT HAD TWO LARGE SOFT BMS TODAY WITH BED CHANGE X1. MEDICATED FOR ANXITEY X1 SO FAR THIS SHIFT. THE PT WAS VERY LETHARGIC AT BEGINNING OF SHIFT. THE PT NOTED TO HAVE RATTLE THAT APPEARED TO SOUND THROATY. THE PT WAS COUGHING AND EXPELLED A VERY LARGE, VERY THICK BALL OF GREYISH GREEN SPUTUM. THIS NURSE SUCTIONED PTS MOUGHT MULTIPLE TIMES, WITH ORAL MOISTURE BETWEEN TO ATTEMPT TO GET THE REMAINDER OF WHAT WAS CAUSING THE COUGH AND RATTLE OUT BUT WAS UNSUCCESSFUL. THIS NURSE CALLED RT FOR A POSSIBLE DEEP SUCTION BUT RT WAS ABLE TO REMOVE THE REMAINDER OF THE MUCOUS WITHOUT DEEP SUCTION. THE PT BECAME VERY AGITATED FOLLOWING THIS. UNABLE TO CALM DOWN PT WITHOUT MEDICATIONS. MEDICATED PER EMAR. NO APPARENT SIGNS OF ACUTE DISTRESS. WILL CONTINUE TO MONITOR.
[2018-08-19 05:35] LABS: Anion Gap 6 mmol/L (6-16); Blood Urea Nitrogen 18 mg/dL (8-24); Bun/Creatinine Ratio 29.9 (12.0-20.0); CO2, Blood 30 mmol/L (21-32); Calcium, Blood 8.6 mg/dL (8.5-10.1); Chloride, Blood 101 mmol/L (98-108); Glomerular Filtration Rate >60 (60-); Glucose, Blood 111 mg/dL (70-99); Potassium, Blood 4.5 mmol/L (3.5-5.5); Sodium, Blood 137 mmol/L (136-145)
--- NOTE | 2018-08-19 11:56 | NUR ---
Pt. is lying in bed resting ans covered self withn blanket offered prayers for pt.
--- NOTE | 2018-08-19 15:22 | NUR ---
Per RN, Arturo had just been medicated. Apparently, he was anxious and expressing "I want outta here!" At time of visit, he was sleeping soundly. Prayer provided at bedside. [employer] services will remain available.
--- NOTE | 2018-08-19 18:17 | NUR ---
SHIFT SUMMARY PT HAS HAD NO ACUTE CHANGES THIS SHIFT, MEDICATED 1X FOR PAIN, 1X FOR AGITATION, PT IS BEDRESTING AT THIS TIME, WILL CONT TO MONITOR UNTIL REPORT GIVEN TO CARLA RN.
--- NOTE | 2018-08-20 01:08 | NUR ---
PT WAS INCONT OF STOOL AND WAS CLEANED UP BY STAFF. DURING THIS PROCESS IT WAS NOTED THAT PT APPEARS TO HAVE UNUSUALLY LARGE TESTICLES THAT ARE DIMPLED IN PLACES. PT ALSO HAS VERY SOFT, UNFORMED STOOLS THAT COULD BE THE RESULT OF STOOLS SOFTENERS BEING ADMINISTERED TOO FREQUENTLY. THESE ISSUES WILL BE DISCUSSED WITH DAY SHIFT STAFF AT CHANGE OF SHIFT.
--- NOTE | 2018-08-20 02:17 | NUR ---
PT USED THE BED RAIL TO PULL OUT HIS IV. IT WAS NOT COMPLETELY REMOVED, SO AN ATTEMPT WAS MADE TO SAVE THE SITE, BUT HE DELIBERATELY JERKED HIS ARM SO THAT THE IV CAME COMPLETELY OUT OF THE VEIN. AN ATTEMPT WAS MADE TO START A NEW IV, BUT HE AGAIN DELIBERATELY JERKED HIS ARM TO PREVENT ITS PLACEMENT. ANOTHER ATTEMPT WILL BE MADE WHEN MORE STAFF ARE AVAILABLE TO ASSIST.
--- NOTE | 2018-08-20 05:07 | NUR ---
VSS, AFEBRILE, SLEPT FOR FIRST HALF OF SHIFT, AWAKE AND PULLING AT RESTRAINT, YELLING, RESISTANT TO CARE. PT MEDICATED FOR ANXIETY PER ORDER. NEW IV PLACED W/OUT INCIDENT. PT TOLERATING TUBE FEEDING W/OUT ADVERSE EFFECTS. PT'S MITT RESTRAINT BECAME CONTAMINATED W/STOOL BEFORE HE WAS CLEANED UP. PT IS VERY THIN AND ABLE TO REMOVE THE WRIST RESTRAINT W/OUT DIFFICULTY. PT OBSERVED TO BE USING HIS LEFT HAND/ARM IN GROSS MOVEMENTS. STILL LARGELY CURLED UP IN A NEAR POSITION ALL OF THE TIME.
[2018-08-20 05:41] LABS: BASOPHILS ABSOLUTE AUTO 0.12 K/mm3 (0.00-0.23); BASOPHILS PERCENT AUTO 1 % (0-2); EOSINOPHILS ABSOLUTE AUTO 0.13 K/mm3 (0.00-0.68); EOSINOPHILS PERCENT AUTO 1 % (0-6); Hematocrit 34.1 % (37.0-53.0); Hemoglobin 10.7 g/dL (13.5-17.5); IMMATURE GRAN ABSOLUTE AUTO 0.06 K/mm3 (0.00-0.10); IMMATURE GRAN PERCENT AUTO 1 % (0-1); LYMPHOCYTES ABSOLUTE AUTO 1.47 K/mm3 (0.84-5.20); LYMPHOCYTES PERCENT AUTO 13 % (21-46); MONOCYTES ABSOLUTE AUTO 0.92 K/mm3 (0.16-1.47); MONOCYTES PERCENT AUTO 8 % (4-13); Mean Corpuscular HGB 29.2 pg (26.0-34.0); Mean Corpuscular HGB Conc 31.4 g/dL (31.5-36.5); Mean Corpuscular Volume 93 fL (80-100); Mean Platelet Volume 9.6 fL (9.1-12.4); NEUTROPHILS ABSOLUTE AUTO 9.04 K/mm3 (1.96-9.15); NEUTROPHILS PERCENT AUTO 77 % (41-73); Platelet Count 627 K/mm3 (150-400); RDW Coefficient Variation 14.2 % (11.7-14.2); RDW Standard Deviation 48.4 fL (35.1-46.3); Red Blood Cell Count 3.66 M/mm3 (4.30-5.90); White Blood Cell Count 11.74 K/mm3 (4.00-11.30)
[2018-08-20 06:11] LABS: Anion Gap 6 mmol/L (6-16); Blood Urea Nitrogen 14 mg/dL (8-24); Bun/Creatinine Ratio 22.8 (12.0-20.0); CO2, Blood 31 mmol/L (21-32); Calcium, Blood 8.5 mg/dL (8.5-10.1); Chloride, Blood 101 mmol/L (98-108); Creatinine, Blood 0.62 mg/dL (0.60-1.20); Glomerular Filtration Rate >60 (60-); Glucose, Blood 110 mg/dL (70-99); Potassium, Blood 4.1 mmol/L (3.5-5.5); Sodium, Blood 138 mmol/L (136-145)
--- NOTE | 2018-08-20 11:00 | NUR ---
Arturo is sleeping this morning. Per CM, pt has a public guardian and arrangements are being made for a possible discharge next week. PC will continue to follow for symptom managment. Left pt undisturbed as he is sleeping at this time.
--- NOTE | 2018-08-20 13:46 | NUR ---
Pt. is in bed resting and unable to respond offered prayers for the pt. and blessed him./
[2018-08-20 13:52] LABS: Stool Occult Blood Guaiac 1 Neg (Neg)
--- NOTE | 2018-08-20 16:22 | NUR ---
SHIFT SUMMARY- PT AXO TO SELF ONLY. PT DENIES PAIN. CRACKLES T/O. PT COUGHING UP THICK YELLOW SECRETIONS. NOTIFIED DR. COX PT'S RIGHT EYE RED AND GOOPY/CRUSTY. MEDS GIVEN PER EMAR. NOTIFIED DR. COX PT'S TESTICLES SWOLLEN. D/C IV FLUIDS. ABDOMINAL BINDER ON TO HIDE PEG TUBE. PT HAS L WRIST AND MITT RESTRAINT ON. YUSUF PATENT AND DRAINING. PEG TUBE FLUSHES WELL WITH ZERO RESIDUALS THIS SHIFT. TURNS Q2H. NO OTHER SIGNIFICANT CHANGES THIS SHIFT.
--- NOTE | 2018-08-21 05:04 | NUR ---
VSS, AFEBRILE, TUBE FEEDING PROGRESSING ORDERED, MEDICATED FOR ANXIETY TWICE PER PT'S REQUEST. HE IS VERY DIFFICULT TO UNDERSTAND BUT IF A LIST OF OPTIONS ARE PRESENTED TO HIM THEN HE WILL INDICATE A POSITIVE RESPONSE VERY CLEARLY. MITT AND WRIST RESTRAINT REMAIN IN TACT PER ORDER OVER NOC. SLEPT WELL, C/O VAGUE PAIN ONCE AND WAS MEDICATED PER ORDER.
--- NOTE | 2018-08-21 13:28 | NUR ---
Pt. is lying in beds fast asleep, no response from pt., prayed for him and blessed him.
--- NOTE | 2018-08-21 16:54 | NUR ---
NOTIFIED DR. COX PT HAD A TEMP OF 102.2 AN AGO AND I GAVE HIM TYLENOL AND PUT HIM WITH JUST A SHEET ON. NOTIFIED DR. COX RECHECK PT'S TEMP 1 HOUR AFTER TYLENOL AND PT'S CURRENT TEMP IS 103.7. DR. COX SAID SHE WILL PUT IN ORDERS. NO NEW ORDERS AT THIS TIME.
--- NOTE | 2018-08-21 18:28 | NUR ---
SHIFT SUMMARY- PT RESPONDS TO VERBAL STIMULI WITH UNCOMPRESIVE SPEECH. PT SLEEPING MOST OF SHIFT. PT HAD A TEMP OF 103.[address] COX AWARE. MEDS GIVEN PER EMAR. PT JUST HAS A SHEET ON. HEAT IN ROOM OFF. FAN ON PT AND PT HAS COOL WASHCLOTH ON HIS FOREHEAD. TEMP 100 THIS PM. PT SATTING IN THE MID TO HIGH 70'S ON RA AND COUGHING ON SECRETIONS THIS PM. LUNGS CRACKLES T/O. PT PLACED ON 6L NC. SATS UP TO 92 ON 6L O2. RT CALLED. RT DEEP SUCTIONED PT. SPUTUM SAMPLE SENT. DR. COX NOTIFIED OF PT'S VITAL SIGNS AND RESPITAORY EVENTS. PT HAD CHEST XRAY THIS PM. TURNS Q2H. PT STARTED ON IV ZOSYN THIS PM. NO OTHER SIGNIFICANT CHANGES THIS SHIFT.
--- NOTE | 2018-08-22 04:29 | NUR ---
VSS, AFEBRILE, A/O TO SELF AND POSSIBLY SITUATION. PT IS MORE VOCAL NOW, AND SLOWLY HIS WORDS ARE BECOMING EASIER TO UNDERSTAND. PT SAYS "HELLO" AND "HELP ME" AND "THANK YOU". WHEN ASKED HOW HE IS, HE REPLIED "EVERYTHING IS REALLY GOOD". PT ALSO SAID "I AM A SHELL" AND LOOKED AT HIS NURSE IN A CONFUSED, QUIZICALL MANNER. IT IS UNCLEAR WHAT HE WAS TRYING TO CONVEY. IT ALMOST SEEMS THAT HE IS AMBIVILENT ABOUT HOW HE FEELS ABOUT THE INTENSE QUALITY OF CARE THAT HE IS RECEIVING. HE IS CLEARLY ANNOYED AND FRUSTRATED WITH THE MITT RESTRAINT. HOWEVER, IN SPITE OF THE MITT, THERE IS CLEAR EVIDENCE THAT HE IS SCRATCHING HIS LEFT HIP AND LEFT UPPER LEG CONSIDERABLY. HE HAS LEFT SEVERAL SCRATCH MOELLER ON HIS SKIN IN THOSE AREAS. PT IS COOPERATIVE W/CARE GIVERS AND EXPRESSES THIS THANKS FOR EVERYTHING THAT IS DONE FOR HIM. HE SLEPT WELL OVERNOC. NO FURTHER S/S OF INFECTION, SUCH FEVER. PT TOLERATES HIS IV ABTX W/OUT ADVERSE EFFECTS.
--- NOTE | 2018-08-22 18:31 | NUR ---
SHIFT SUMMARY PT AXO TO SELF THOUGH PT HAS GARBLED SPEECH BUT CAN ANSWER "NO" AND "HI" TO SOME QUESTIONS. PT FEBRILE AT 1549 AND WARM TO TOUCH, MEDICATED PER EMAR. DR COX CALLED AT 1552, NEW ORDERS INITIATED. BP SOMEWHAT IMPROVED AT 1722 AT 98/59. CHARGE NURSE AWARE. PT LEGS CONTRACTRED AND PT SLEEPS IN POSITION. SOME MUSCLE SPASMS AT TIMES IN R. LEG. RESIDUAL CHECKED PER ORDERS AND FLUSHED. BED IN LOW POSITION, BED ALARM ON. PT'S HAIR WAS ALSO CUT THIS SHIFT DUE DUE TO HIS HAIR BEING MATTED AND IN HIS FACE AND NEEDED TO BE CLEANED.
--- NOTE | 2018-08-22 23:36 | NUR ---
PT BECOMING MORE AND MORE AGITATED TONIGHT, TRYING TO HIT OUT WITH BRIEF CHANGES, TRYING TO CRAWL OUT OF BED, HANGING LEGS OVER EDGE OF BED, AND ALSO SWEARING OUT. HOSPITALIST NOTIFIED AND ORDER RECEIVED.
--- NOTE | 2018-08-23 05:00 | NUR ---
SHIFT SUMMARY PT SLEPT SOME AFTER RECEIVING IV ATIVAN FOR AGITATION. AWAKE NOW AND PLEASANT, TRYING TO CONVERSE WITH STAFF BUT DIFFICULT TO UNDERSTAND. NO OTHER CHANGES NOTED DURING THE NIGHT. WILL CONTINUE TO MONITOR.
[2018-08-23 05:20] LABS: BASOPHILS ABSOLUTE AUTO 0.08 K/mm3 (0.00-0.23); BASOPHILS PERCENT AUTO 1 % (0-2); EOSINOPHILS PERCENT AUTO 1 % (0-6); Hematocrit 31.3 % (37.0-53.0); IMMATURE GRAN ABSOLUTE AUTO 0.06 K/mm3 (0.00-0.10); IMMATURE GRAN PERCENT AUTO 0 % (0-1); LYMPHOCYTES ABSOLUTE AUTO 1.43 K/mm3 (0.84-5.20); LYMPHOCYTES PERCENT AUTO 9 % (21-46); MONOCYTES ABSOLUTE AUTO 0.92 K/mm3 (0.16-1.47); MONOCYTES PERCENT AUTO 6 % (4-13); Mean Corpuscular HGB 29.2 pg (26.0-34.0); Mean Corpuscular HGB Conc 31.9 g/dL (31.5-36.5); Mean Corpuscular Volume 92 fL (80-100); Mean Platelet Volume 9.5 fL (9.1-12.4); NEUTROPHILS ABSOLUTE AUTO 14.03 K/mm3 (1.96-9.15); NEUTROPHILS PERCENT AUTO 84 % (41-73); Platelet Count 585 K/mm3 (150-400); RDW Coefficient Variation 14.2 % (11.7-14.2); RDW Standard Deviation 48.2 fL (35.1-46.3); Red Blood Cell Count 3.42 M/mm3 (4.30-5.90); White Blood Cell Count 16.72 K/mm3 (4.00-11.30)
[2018-08-23 05:38] LABS: Anion Gap 9 mmol/L (6-16); Blood Urea Nitrogen 24 mg/dL (8-24); Bun/Creatinine Ratio 37.4 (12.0-20.0); CO2, Blood 31 mmol/L (21-32); Calcium, Blood 8.6 mg/dL (8.5-10.1); Chloride, Blood 102 mmol/L (98-108); Creatinine, Blood 0.64 mg/dL (0.60-1.20); Glomerular Filtration Rate >60 (60-); Glucose, Blood 123 mg/dL (70-99); Potassium, Blood 3.7 mmol/L (3.5-5.5); Sodium, Blood 142 mmol/L (136-145)
--- NOTE | 2018-08-23 18:10 | NUR ---
SHIFT SUMMARY PT RESPONDING TO VERBAL STIMULI AND A&O TO SELF AT TIMES. SOB, PT ON 5L O2 VIA NC, >90%. LS COARSE, WITH COPIOUS AMOUNTS OF SPUTUM. PT DENIES PAIN AND N/V DURING SHIFT, NO S/SX OF DISTRESS NOTED. PT RECEIVING IV ANTIBIOTICS. TUBE FEEDING STARTED THIS EVENING AT 1719. 0 RESIDUAL T/O SHIFT. MEDICATIONS PER PEG TUBE. FLUSHES COMPLETED PER ORDERS. VSS. NO OTHER ACUTE CHANGES NOTED DURING SHIFT. WILL CONTINUE TO MONITOR UNTIL REPORT GIVEN TO ONCOMING RN.
--- NOTE | 2018-08-24 04:56 | NUR ---
SHIFT SUMMARY PT HAS HAD A GOOD NIGHT. HAS SLEPT ON AND OFF, VERY PLEASANT WHEN AWAKE TONIGHT. PT HAS HAD MULTIPLE STOOLS DURING THE NIGHT. NO ACUTE EVENTS NOTED, WILL CONTINUE TO MONITOR.
[2018-08-24 05:22] LABS: BASOPHILS ABSOLUTE AUTO 0.08 K/mm3 (0.00-0.23); BASOPHILS PERCENT AUTO 1 % (0-2); EOSINOPHILS ABSOLUTE AUTO 0.37 K/mm3 (0.00-0.68); EOSINOPHILS PERCENT AUTO 3 % (0-6); Hematocrit 31.9 % (37.0-53.0); Hemoglobin 9.8 g/dL (13.5-17.5); IMMATURE GRAN ABSOLUTE AUTO 0.04 K/mm3 (0.00-0.10); IMMATURE GRAN PERCENT AUTO 0 % (0-1); LYMPHOCYTES PERCENT AUTO 12 % (21-46); MONOCYTES ABSOLUTE AUTO 1.03 K/mm3 (0.16-1.47); MONOCYTES PERCENT AUTO 9 % (4-13); Mean Corpuscular HGB 28.9 pg (26.0-34.0); Mean Corpuscular HGB Conc 30.7 g/dL (31.5-36.5); Mean Corpuscular Volume 94 fL (80-100); Mean Platelet Volume 9.3 fL (9.1-12.4); NEUTROPHILS ABSOLUTE AUTO 9.09 K/mm3 (1.96-9.15); NEUTROPHILS PERCENT AUTO 76 % (41-73); Platelet Count 688 K/mm3 (150-400); RDW Coefficient Variation 14.2 % (11.7-14.2); RDW Standard Deviation 48.1 fL (35.1-46.3); Red Blood Cell Count 3.39 M/mm3 (4.30-5.90); White Blood Cell Count 12.01 K/mm3 (4.00-11.30)
[2018-08-24 06:06] LABS: Anion Gap 7 mmol/L (6-16); Blood Urea Nitrogen 18 mg/dL (8-24); Bun/Creatinine Ratio 30.1 (12.0-20.0); CO2, Blood 31 mmol/L (21-32); Calcium, Blood 8.7 mg/dL (8.5-10.1); Chloride, Blood 103 mmol/L (98-108); Glomerular Filtration Rate >60 (60-); Glucose, Blood 105 mg/dL (70-99); Potassium, Blood 3.7 mmol/L (3.5-5.5); Sodium, Blood 141 mmol/L (136-145)
--- NOTE | 2018-08-24 14:05 | NUR ---
Pt is in bed unresponsive, Offered prayer for pt and blessed ph.
--- NOTE | 2018-08-24 18:18 | NUR ---
SHIFT SUMMARY PT RESPONDS TO VERBAL STIMULI AND IS ALERT AT TIMES. PT RESTING IN BED, REPOSITION FOR COMFORT AND SKIN INTEGRITY. SPEECH, FOR THE MOST PART IN INCOMPREHENSIBLE. ANSWER QUESTIONS AND USES 2-5 WORD STATEMENTS. PT AGITATED WHEN TURNING OR CHANGING. NO S/SX OF DISTRESS NOTED. PT >90% ON 5L O2 VIA NC. COUGHING UP GREEN SPUTUM. YUSUF IN PLACE, PATENT AND DRAINING, URINE CLOUDY, OUTPUT AT 275, DR COX NOTIFIED, NEW ORDERS ENTERED. PT HAD ONE LOOSE, STICKY STOOL, HAD RED MUCUS-SUBSTANCE, DR COX NOTIFIED, OCCULT SPECIMEN COLLECTED AND SENT. TUBE FEEDING AND FLUSHES PER ORDERS. VSS NO OTHER ACUTE CHANGES NOTED DURING SHIFT. WILL CONTINUE TO MONITOR UNITL REPORT GIVEN TO ONCOMING SHIFT.
[2018-08-24 18:44] LABS: Source, Urine Catheter
[2018-08-24 18:51] LABS: Appearance, Urine Cloudy (Clear); Bilirubin, Urine Neg (Neg); Blood, Urine 4+ (Neg); Color, Urine Yellow (P-Yellow); Glucose Qualitative, Urine Neg (Neg); Ketones, Urine Neg (Neg); Leukocyte Esterase, Urine 3+ (Neg); Nitrite, Urine Neg (Neg); Protein, Urine 3+ (Neg); Specific Gravity, Urine 1.015 (1.003-1.022); Urobilinogen, Urine NORM (Normal)
[2018-08-24 19:02] LABS: Bacteria Mod /hpf; Squamous Epithelial Cells Not Seen /hpf (Few); White Blood Cells, Urine TNTC /hpf (0-5); Yeast/Fungi Urine Mod /hpf
[2018-08-24 21:43] LABS: Vancomycin, Trough 10.3 ug/mL (5.0-10.0)
[2018-08-24 22:21] LABS: Stool Occult Blood Guaiac 1 Pos (Neg)
--- NOTE | 2018-08-25 04:50 | NUR ---
Rn summary: Patient is confused, he does talk a little but it is usually garbled and nonsencical. Patient has been incontinent of stools x2. Slool is orange/brown and very loose. Rectal area is excoriated and cream applied with attends changes. Patient is in left wrist and mitt restraint to protect feeding tube and yepez cath. Pt has been receiving tube feedings this shift. HOB elevated due to tube feeding. Pt also has on abdominal binder to protect feeding tube. Pt is very thin and has mepilex to nando hips and heels to protect skin. Pt cont on 5 liters O2 via NC. Continue to wait for assignment ofgaurdian and placement. Pt unable to use call light, bed alarm on for safety. Pt is in droplet isolation for MRSA in sputum. IV ABX as ordered.
--- NOTE | 2018-08-25 13:48 | NUR ---
Metpty in bed and nurses in th room attending to his celeste winn and pt.
--- NOTE | 2018-08-25 18:25 | NUR ---
Arturo remains in restraints. He has a fresh haircut and awakens briefly to voice. He did not respond to me, however. He appears quite debilitated. I will remain available.
--- NOTE | 2018-08-25 20:43 | NUR ---
SHIFT SUMMARY PATIENT A&O TO SELF. CONFUSED. HARD TO UNDERSTAND SPEECH. DENIES ANY PAIN THIS SHIFT. VERY ANXIOUS AND AGITATED. RN MEDICATED PER E AUG. TUBE FEEDING STARTED @ 1800. NO ACUTE CHANGES.
--- NOTE | 2018-08-26 08:12 | NUR ---
Rn summary: Patient is stable with no change in condition. Pt remains in left wrist and L mitt. Pt turned q 2 hours, attempts made to ROM legs and to straighten legs in bed but pt continues to position. Pt has tolerated feeding. IV ABX as ordered. Pt has 3-4 loose stools per shift. Barrier cream to bottom, attends in place. Awaiting placement.
--- NOTE | 2018-08-26 11:46 | NUR ---
Pt. is lying in bed resting seems to be calm today, p[rayed for pt.
--- NOTE | 2018-08-26 20:02 | NUR ---
SHIFT SUMMARY PATIENT HAD NO ACUTE CHANGES. NO BEHAVIORS OF AGGITATION. CONTINUED WITH PLAN OF CARE THROUGHOUT THE DAY.
--- NOTE | 2018-08-27 07:11 | NUR ---
SHIFT SUMMARY PT IS A 57 Y/O MALE, ADMITTED FOR RESPIRATORY FAILURE POST CVA. HE IS A&O X SELF ONLY, WITH INCOMPREHENSIBLE SPEECH. HE IS CURRENTLY IN A L WRIST RESTRAINT AND MITT IN ORDER TO PREVENT PT FROM PULLING ON IV LINES AND PEG TUBE. THE PT WAS AGITATED AT THE START OF SHIFT, RESTLESS AND FIDGETING IN BED. HE WAS MEDICATED WITH 1 MG OF ATIVAN. HE THEN SLEPT WELL FOR MOST OF THE NIGHT. PT RECEIVED A BOLUS FEED THROUGH THE PEG TUBE DURING THE NIGHT. VITAL SIGNS STABLE. NO OTHER ACUTE CHANGES IN PT CONDITION NEEDED. WILL CONTINUE TO MONITOR AND TREAT PER EMAR UNTIL HAND OFF TO DAY SHIFT.
--- NOTE | 2018-08-27 13:17 | NUR ---
Pt. is lying in bed still confused and continuous sleeping , prayed for him and blessed .
--- NOTE | 2018-08-27 18:09 | NUR ---
SUMMARY PT RESTING QUIETLY IN BED, HAS BEEN RESISTANT TO MOST CARES T/O THE DAY, LOTS OF THICK ORAL SECRETIONS CLEANED OUT OF THE PT'S ORAL CAVITY, PT HAS BEEN COMBATIVE WITH STAFF AT TIMES, KICKING AND/OR PUNCHING TOWARDS STAFF, OFTEN SWEARING AT STAFF WELL, PT MED PER EMAR FOR AGITATION, PT WAS FOUND HANGING HALF OUT OF THE BED TRYING TO GET UP OUT OF BED, PT DOES NOT BEAR WEIGHT, ROM PERFORMED, PT VERY STIFF, RESTRAINTS IN PLACE FOR SAFETY, ABD BINDER IN PLACE TO PREVENT PT FROM PULLING OUT PEG TUBE, PT TOLERATING TUBE FEED AND FLUSHES, VSS, WILL CONT TO MONITOR
[2018-08-28 05:13] LABS: Hematocrit 32.8 % (37.0-53.0); Hemoglobin 10.4 g/dL (13.5-17.5); Mean Corpuscular HGB 29.2 pg (26.0-34.0); Mean Corpuscular HGB Conc 31.7 g/dL (31.5-36.5); Mean Corpuscular Volume 92 fL (80-100); Platelet Count 683 K/mm3 (150-400); RDW Coefficient Variation 14.1 % (11.7-14.2); RDW Standard Deviation 47.8 fL (35.1-46.3); Red Blood Cell Count 3.56 M/mm3 (4.30-5.90); White Blood Cell Count 10.92 K/mm3 (4.00-11.30)
[2018-08-28 05:39] LABS: Anion Gap 7 mmol/L (6-16); Blood Urea Nitrogen 18 mg/dL (8-24); Bun/Creatinine Ratio 30.4 (12.0-20.0); CO2, Blood 31 mmol/L (21-32); Calcium, Blood 8.5 mg/dL (8.5-10.1); Chloride, Blood 105 mmol/L (98-108); Creatinine, Blood 0.59 mg/dL (0.60-1.20); Glomerular Filtration Rate >60 (60-); Glucose, Blood 99 mg/dL (70-99); Potassium, Blood 4.1 mmol/L (3.5-5.5); Sodium, Blood 143 mmol/L (136-145)
--- NOTE | 2018-08-28 06:16 | NUR ---
SHIFT SUMMARY PT IS A 57 Y/O MALE, ADMITTED FOR RESPIRATORY FAILURE AFTER A CVA. HE IS A&O X SELF ONLY, WITH MOSTLY INCOMPREHENSIBLE SPEECH. THE PT IS VERY RESTLESS AND FIDGETY IN BED, AND WAS MEDICATED X 2 WITH PRN ATIVAN FOR ANXIETY. THE PT IS IN WRIST RESTRAINTS AND A L HAND MITT TO PROTECT HIS LINES AND PEG TUBE PLACEMENT. PT RECEIVED A TUBE FEEDING THROUGH THE NIGHT WITH NO APPARENT ISSUES. HE APPEARED COMFORTABLE WITH NO S/S OF PAIN OR DISTRESS. VITAL SIGNS STABLE. NO ACUTE CHANGES IN PT CONDITION NOTED. WILL CONTINUE TO MONITOR AND TREAT PER EMAR.
--- NOTE | 2018-08-28 13:45 | NUR ---
Pt. is lying in bed resting unable to communicate, prayed for the pt.
--- NOTE | 2018-08-28 18:48 | NUR ---
SUMMARY PT RESTING QUIETLY, TUBE FEED STARTED, PT MICHELLE WELL, RESISTANT TO SOME CARES, VSS, NO ACUTE CHANGES, WILL CONT TO MONITOR
--- NOTE | 2018-08-29 16:30 | NUR ---
SHIFT SUMMARY PT IS A 57 YR OLD MALE ADMITTED FOR RESPIRATORY FAILURE AFTER A TRAUMA. 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 HE HAS A PEG TUBE IN PLACE THROUGH WHICH HE RECEIVES ALL MEDS AND NUTRITION. HE COMMUNICATES/RESPONDS VERY LITTLE, RESPONDS TO CARE. HE HAS A NC RUNNING AT 2 LPM, RESTRAINTS DUE TO HX OF PULLING LINES AND TUBES. HX: CVA, HTN, CKD 1, DIABETES, A-FIB. HOB NEEDS ELEVATED TO 45 DEGREES. HE IS AWAITING PLACEMENT AT A FACILITY.
--- NOTE | 2018-08-29 18:26 | NUR ---
TUBE FEEDING BEGAN BEGAN TUBE FEEDING AT APPROX [id number]. 50 ML FLUSH PROGRAMMED FOR BEFORE JEVITY WAS BEGAN. PT TOLERATING WELL. HOB ELEVATED
--- NOTE | 2018-08-30 05:26 | NUR ---
08/30/18 0530 TUBE FEEDING COMPLETED WITH FLUSH OF 50 ML OF WATER AFTERWARDS. HAD SLIGHT TEMP BUT PT HAD 4 BLANKETS ON HIM. REMOVED ALL BUT ONE. REPOSITIONED TO LEFT SIDE WITH PILLOWS. GOOD ORAL AND SERGEY-CARE GIVEN WITH EACH REPOSITIONING. ABD. BINDER IN PLACE TO PREVENT POSSIBLE PULLING OUT BY PT. PT REMAINS IN ELOISE.WRIST RESTRAINTS AND MITTEN TO LEFT HAND. PT CONFUSED.
--- NOTE | 2018-08-30 16:59 | NUR ---
SHIFT SUMMARY 57 YR OLD MALE ADMITTED FOR RESPIRATORY FAILURE. DNR. TODAY HE WAS MORE TALKATIVE WITH STAFF, ALTHOUGH OFTEN HIS BRIEF STATEMENTS WERE NONSENSICAL. HE DID BECOME COMBATIVE WITH STAFF DURING A BRIEF CHANGE, REQUIRING ANTI-ANXIETY MEDICATION. HIS TUBE FEEDING WAS BEGAN AT 1645 HRS. NO OTHER REMARKABLE CHANGES.
--- NOTE | 2018-08-31 06:04 | NUR ---
08/31/18 0600 VITALS STABLE. TUBE FEEDING OVER 12 HOURS COMPLETED THIS AM VIA PEG TUBE. GOOD ORAL AND SERGEY-CARE GIVEN WITH EACH ROUNDING. HAS BEEN MORE IRRITABLE AND USED PROFANITY SEVERAL TIMES WHEN DOING NURSING TASKS. YUSUF WITH QS OUTPUT. SCOPOLAMINE PATCH TO BEHIND LEFT HERE FOR INCREASED SECRETIONS ORALLY.
--- NOTE | 2018-08-31 11:49 | NUR ---
Pt. is lying in bed sleeping, and unable to respond offered prayers for the pt. and blessed him.
--- NOTE | 2018-08-31 16:43 | NUR ---
SHIFT SUMMARY- PT CONFUSED BUT COOPERATIVE WITH CARE THIS SHIFT. PT DENIES ANY COMPLAINTS. LS DIMINISHED, PT NOW ON RA. YUSUF CATHETER DC'D. NO IV ACCESS PRESENT. PEG TUBE PRESENT, SECURED WITH ABD BINDER. LOW GRADE TEMP THIS EVENING. BILAT WRIST RESTRAINTS AND MITT TO LEFT HAND IN PLACE TO PROTECT PEG TUBE. NO OTHER ACUTE CHANGES THIS SHIFT.
--- NOTE | 2018-08-31 18:02 | NUR ---
YUSUF CATHETER- DC'D CATHETER EARLY THIS SHIFT, PT HAS NOT VOIDED SINCE D/C OF CATHETER. BLADDER SCAN OF 405. NEW YUSUF CATHETER PLACED. DR COX NOTIFIED.
--- NOTE | 2018-08-31 18:03 | NUR ---
TEMP OF 101.1, TYLENOL GIVEN VIA PEG TUBE. TUBE FEEDING BEGAN AT THIS TIME, NO RESIDUAL NOTED.
[2018-08-31 18:17] LABS: Source, Urine Catheter
[2018-08-31 18:36] LABS: Appearance, Urine Cloudy (Clear); Bilirubin, Urine Neg (Neg); Blood, Urine 5+ (Neg); Color, Urine Yellow (P-Yellow); Glucose Qualitative, Urine Neg (Neg); Ketones, Urine Neg (Neg); Leukocyte Esterase, Urine 3+ (Neg); Nitrite, Urine Neg (Neg); Protein, Urine 3+ (Neg); Urobilinogen, Urine NORM (Normal)
[2018-08-31 19:03] LABS: Bacteria Rare /hpf; Squamous Epithelial Cells Rare /hpf (Few); White Blood Cells, Urine TNTC /hpf (0-5)
--- NOTE | 2018-09-01 00:23 | NUR ---
09/01/18 0010 AWAKE AND RESTLESS. HITTING LEGS ON SIDERAILS. REPOSITIONED BUT STILL RESTLESS. SEE MAR FOR MED GIVEN FOR ANXIETY/AGITATION.
--- NOTE | 2018-09-01 07:16 | NUR ---
09/01/18 0620 MORE AGITATED THIS SHIFT WITH USE OF PROFANITY OFTEN WHEN DOING TURNING AND PERSONAL CARE. SPEECH GARBLED BUT DID EXPRESS FRUSTRATION ABOUT BEING IN HOSPITAL SO LONG. VITALS STABLE.
--- NOTE | 2018-09-01 11:37 | NUR ---
Pt. is in bed awake and restless , pt. do not respond when talked to, so I offered prayer for him and blessed him.
--- NOTE | 2018-09-01 16:49 | NUR ---
SHIFT SUMMARY- PT AGITATED AT TIMES T/O THE DAY. PT BOUNCES SELF IN BED AND ATTEMPTS TO SWING AND KICK AT STAFF. PT DOES CALM DOWN SLIGHTLY AFTER SCHEDULED ZYPREXA GIVEN. NO RESIDUAL THIS SHIFT. NO OTHER ACUTE CHANGES THIS SHIFT.
--- NOTE | 2018-09-02 04:54 | NUR ---
SHIFT SUMMARY PT ALERT TO SELF ONLY, SPEECH GARBLED AND DIFFICULT TO UNDERSTAND. PT BECOMES IRRITATED WITH ANY CARE, DISLIKES BEING REPOSITIONED. REMAINED IN BILATERAL WRIST RESTRAINTS AND MITT ON LEFT HAND THROUGHOUT THE NIGHT TO PROTECT STAFF AND LINES. PEG TUBE FEEDING RUNNING AT 110 ML/HR. PT TOLERATING WELL WITH LITTLE TO NO RESIDUAL WITH CHECKS. PT TENDS TO SLIDE HIMSELF DOWN IN THE BED AND IS A HIGH RISK FOR ASPIRATION. FREQUENT CHECKS AND BOOSTS WHEN NEEDED TO MAINTAIN HOB AT AT LEAST 30 DEGREES. YUSUF CATHETER IN PLACE, PATENT AND DRAINING. PT'S APPEARANCE DECONDITIONED. 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 WET COUGH AT TIMES. NO NONVERBAL S/S OF PAIN. PT APPEARS TO BE SLEEPING AT THIS TIME. VSS. WILL CONTINUE TO MONITOR.
--- NOTE | 2018-09-02 05:39 | NUR ---
PT'S LAST RESIDUAL CHECK THIS AM WAS 450 ML. STOPPED TUBE FEEDING AND DISCARDED RESIDUAL. FLUSHED OUT AND UNHOOKED KANGAROO PUMP. PT HAD RECIEVED 1273 ML WITH 450 ML DISCARDED SO PT ONLY TOLERATED A LITTLE OVER 800 MLS.
--- NOTE | 2018-09-02 11:52 | NUR ---
Pt. in bed no response from him , prayed over him and blessed pt.
--- NOTE | 2018-09-02 16:58 | NUR ---
SHIFT SUMMARY NO CHANGES IN ASSESSMENT AT THIS TIME. VSS. PT SLEPT MOST THE DAY AFTER ONE DOSE OF ATIVAN. PT REOPSITIONED Q2H & CATH CARE COMPLETED THIS SHIFT. ORAL CARE COMPLETED PT ALLOWS. YUSUF INTACT & DRAINING. PT REMAINS IN NILAT WRIST RESTRAINTS & A MITT ON THE L HAND. PT GIVEN THE REMAINING OF HIS TUBE FEEDING FROM OVERNIGHT. FLUSHES GIVEN ORDERED. WILL CONTINUE TO MONITOR UNTIL TURNOVER IS COMPLETE.
--- NOTE | 2018-09-03 00:35 | NUR ---
PATIENT ANXIOUS AND ATIVAN PO GIVEN THROUGH PEG TUBE. KANAGROO PUMP INFUSING JERVITY AT 110 mL/HR. PATIENT PULLED UP IN BED X 4. [place] VEST AND BILATERAL SOFT WRIST RESTRAINTS IN PLACE. WILL CONTINUE TO MONITOR.
--- NOTE | 2018-09-03 03:49 | NUR ---
SHIFT SUMMARY PATIENT HAD NO ACUTE CHANGES OBSERVED THIS SHIFT. BEDFAST AND NON-VERBAL. BILATERAL WRIST RESTRAINTS AND L HAND MITT. PATIENT TRIES TO SWING AND KICK WHEN REPOSITIONED. NPO. PEG TUBE KANGAROO PUMP INFUSING JEVITY AT 110mL/HR. HOB 30-45 DEGREES. PATIENT AGITATED/ANXIOUS AND ATIVAN 1 MG GIVEN THROUGH PEG TUBE. PATIENT LESS ANXIOUS. PATIENT HAD KEEP SWINGING LEGS OVER SIDE OF RAIL. YUSUF PATENT AND DRAINING. CACHETIC STATE W/BLE CONTRACTURES. NO S/SX OF PAIN, SOB, AND N/V. ON 1L O2 NC. BED ALARM ACTIVATED. WILL CONTINUE TO MONITOR UNTIL DAY SHIFT NURSE ASSUMES CARE.
--- NOTE | 2018-09-03 13:28 | NUR ---
Pt. is lying in bed resting quiettly relaxed encouraged pt in that situation and offered prayers for the pt.
--- NOTE | 2018-09-03 17:40 | NUR ---
SHIFT SUMMARY PT GIVEN ATIVAN FOR RESTLESSNESS & AGITATION. PT NOW SLEEPING COMFORTABLY IN BED. CALL LIGHT IN REACH. PT FEEDING STARTED AT 1700 & RUNNING ORDERED. PT TOLERATING WELL. NO OTHER CHANGES IN ASSESSMENT AT THIS TIME. VSS. WILL CONTINUE TO MONITOR UNTIL TURNOVER IS COMPLETE.
--- NOTE | 2018-09-04 04:12 | NUR ---
SHIFT SUMMARY PATIENT HAD NO ACUTE CHANGES OBSERVED THIS SHIFT. LESS AGITATED THIS SHIFT. AXO X1 AND BEDFAST. NPO AND NON-VERBAL. BILATERAL SOFT WRIST RESTRAINTS WITH MITT ON L HAND. JEVITY INFUSED AT 110 mL/HR X 12 HRS. HOB 30-45 DEGREES. YUSUF PATENT AND DRAINING. NO S/SX OF PAIN, SOB, AND N/V. ON 1L O2 NC. VSS/AFEBRILE. BED ALARM ACTIVATED. WILL CONTINUE TO MONITOR UNTIL DAY SHIFT NURSE ASSUMES CARE.
--- NOTE | 2018-09-04 11:47 | NUR ---
Pt.is lying in bed resting and is doing much bettert prayed for him and blessed him.
--- NOTE | 2018-09-04 17:26 | NUR ---
SHIFT SUMMARY PT ALERT MOST THE SHIFT. ATIVAN WAS GIVEN THIS AFTERNOON TO ASSIST WITH INCREASED AGITATION & RESTLESSNESS. PT NOW SLEEPING IN BED. TUBE FEEDING STARTED ORDERED. AT BEGINING OF SHIFT PT WAS VERY GURGLY. SUCTIONING REQUIRED BY THIS RN & RT WAS CALLED TO COMPLETE A DEEP SUCTION. SPECIMEN COLLECTED AT THIS TIME & SENT TO LAB. DR. COX NOTIFIED & ORDERED SCALOPAMINE PATCH FOR PT. NO GURGLING NOTED THE REST THE SHIFT. LARGE CAST REMOVED FROM TOP OF MOUTH THIS SHIFT. NO OTHER CHANGES IN ASSESSMENT AT THIS TIME. BP LOW AT 88/54 AFTER GIVEN ATIVAN & SLEEPING. OTHER VITALS STABLE. WILL CONTINUE TO MONITOR UNTIL TURNOVER IS COMPLETE.
--- NOTE | 2018-09-04 20:09 | NUR ---
PT TEMPORAL TEMP AT 95.7. RECHECKED VIA ORAL TEMP: 98.8.
--- NOTE | 2018-09-05 06:05 | NUR ---
SHIFT SUMMARY PT AGITATED AND RESTLESS MOST OF SHIFT. ADMINISTERED PRN ATIVAN c VERY LITTLE RELIEF. REPOSITIONED Q1-2 HRS, PT IS RESTLESS AND TRIES TO EXIT BED/THROW LEGS OVER SIDE RAILS. HOB ELEVATED 45 DEGREES OR GREATER TO PREVENT ASPIRATION. TUBE FEEDING FINISHED AT 0500; RESIDUAL OF 35 ML; FLUSHED c 50 ML WATER. ABDOMINAL BINDER; BILAT WRIST RESTRAINTS; L HAND MITT; AND 4-SIDE RAILS UP TO PROTECT PEG TUBE AND YUSUF, AND TO PREVENT FALLS. PT SUCTIONED SEVERAL TIMES TONIGHT BY THIS RN FOR EXCESS SECRETIONS. ORAL SUCTIONING SUCCESSFUL IN CLEARING SECRETIONS; THICK, TENACIOUS SPUTUM. GRIFFITH IN COLOR c BLOOND TINGE. SCOPOLAMINE PATCH BEHIND L EAR. PT IS ALERT TO SELF ONLY, MOSTLY NONVERBAL, GARBLED SPEECH. PT IS AGITATED AND COMBATIVE TONIGHT. WILL CONT TO MONITOR AND PROVIDE CARE UNTIL PRESUMED BY ONCOMING RN.
--- NOTE | 2018-09-05 18:37 | NUR ---
SHIFT SUMMARY PT HAD BEEN COOPERATIVE MOST OF THE SHIFT UNTIL THIS EVENING. PT AGITATED AND SCOOTING SELF AROUND IN BED UNTIL LEGS ARE THROUGH SIDE RAILS AND THEN PT BECOMES VERY ANGRY WHEN STAFF TRYING TO REPOSITION AND BEGINS TO TRY TO HIT STAFF AND YELLING AT THEM. UNABLE TO START TUBE FEEDINGS AT 1700 DUE TO PT'S AGITATION AND CONTINUING TO GET SELF LOW IN THE BED AND AT ASPIRATION RISK. THIS RN ADMINISTERED ATIVAN TO HELP CALM PT. NO ACUTE CHANGES THIS SHIFT. WRIST RESTRAINTS AND LEFT MITT IN PLACE FOR SAFETY AND PREVENTION OF PEG TUBE BEING PULLED OUT. WILL CONTINUE TO MONITOR AND REPORT TO ONCOMING RN.
--- NOTE | 2018-09-06 02:38 | NUR ---
PT c INCREASED AGITATION AND RESTLESSNESS. ADMINISTERD 1 MG ATIVAN PER PEG TUBE. PT CONT TO THROW LEGS OVER SIDERAIL AND SLIDE DOWN IN BED. STOPPED FEEDING PT CANNOT MAINTAIN 45 DEGREE HOB ELEVATION AND IS AT RISK FOR ASP.
--- NOTE | 2018-09-06 04:25 | NUR ---
PT IS CALMING DOWN, LESS AGITATED, BEGINNING TO FALL ASLEEP AT THIS TIME. WILL RESTART TUBE FEEDINGS AT THIS TIME IT IS SAFE TO DO SO.
--- NOTE | 2018-09-06 05:26 | NUR ---
SHIFT SUMMARY: PT INCREASINGLY AGITATED AND RESTLESS SINCE ABOUT 010. ADMINISTERED PRN ATIVAN AND STOPPED TUBE FEEDINGS D/T HIGH RISK OF ASPIRATION. PT DID NOT BEGIN RESTING UNTIL 429, TUBE FEEDINGS RESTARTED AT THAT TIME. PT SUCTIONED SEVERAL TIMES TONIGHT; THICK, TENACIOUS GRIFFITH SPUTUM. 4 SIDE RAILS UP, BILATERAL WRIST RESTRAINTS, AND L HAND MITT ON TO PROTECT PEG TUBE AND YUSUF. YUSUF CATH PATENT AND DRAINING. NO OTHER CHANGES TO REPORT TONIGHT. WILL CONT TO MONITOR AND PROVIDE CARE UNTIL PRESUMED BY ONCOMING RN.
--- NOTE | 2018-09-06 17:40 | NUR ---
SHIFT SUMMARY PT HAS BEEN MORE AGITATED THIS AFTERNOON. PT CURSING AND TRYING TO HIT STAFF. ATIVAN GIVEN BUT PT DID NOT CALM DOWN FOR QUITE AWHILE AFTER MEDICATION WAS GIVEN. RESTRAINTS STILL IN PLACE FOR SAFETY. PEG TUBE IN PLACE WITH NO RESIDUAL. TUBE FEEDINGS FINISHED LATE DUE TO PT CONTINUOUSLY GETTING SELF TOO LOW IN BED, CAUSING ASPIRATION RISK AND HAD TO BE STOPPED SEVERAL TIMES. WILL CONTINUE TO MONITOR AND REPORT TO ONCOMING RN. BED ALARM ON FOR SAFETY.
--- NOTE | 2018-09-06 21:23 | NUR ---
2057 PT VERY AGITATED AND UNABLE TO FOLLOW AND DIRECTIONS. PT AFTER STAFF BOASTS AND REPOSITIONS IN BED SQUIRMS AND MOVES SELF AROUND IN BED AND ATTEMPTING TO PULL AT G-TUBE AND YUSUF. ATIVAN 2MG CRUSHED AND GIVEN VIA G-TUBE X 2 ASSIST.
--- NOTE | 2018-09-07 05:02 | NUR ---
57 SLENDER MALE RESTLESS THROUGHOUT THE NIGHT. PTS G-TUBE FEEDING WAS TURNED OFF FOR 3 HOURS AFTER LARGE AMOUNT EMESIS X 1 NOTED AND PATIENT WAS SUCTIONED FOR THICK YELLOW PHELGM. PTS RESTRAINTS WERE MAINTAINED HE ATTEMPTS TO PULL OF YUSUF AND G-TUBE WHILE REPOSITIONING SELF FREQUENTLY IN ROOM. PT IS CONFUSED AND THIS NURSE WAS UNSURE IF HE UNDERSTANDS ANY VERBAL COMMUNICATION PATIENT ONLY ABLE TO HAVE GARBLED SPEECH. PT APPEARS TO HAVE NO PAIN. PTS BED IN LOW POSITION WITH CALL LIGHT AT SIDE, BED ALARM ON.
--- NOTE | 2018-09-07 11:26 | NUR ---
MISTAKENLY REQUESTED RESTRAINT ORDERS FROM DR. CASTELLANO, DR. GOTTI IS ASSIGNED HOSPITALIST TODAY. ORDER EDITED.
--- NOTE | 2018-09-07 14:49 | NUR ---
Case conference with healthcare financial analyst, hospitalist and patient guardian attended. The principals declining condition, placement disposition, and level of treatement reviewed and discussed. Given Arturo's compromised neurologic status and inability to provide reliable guidance on care decisions, it was determined that the factors that would carry weight in devising a plan moving forward would be mainly clinical in nature. The artificially administered nutrition / hydration does not currently appear to be aiding his recovery well as he continues to become further emaciated despite the intervention. It is also on record that Arturo has manually extracted the PEG Tube on more than one ocassion. In one of those instances the Nurse documented that when she found Arturo in this state, he said "your going to have to come up with a different plan." Taking the aforementioned variables in combination with what we have pieced together about his life history it appears that we might consider discontinuing ANS, removing his restraints, and pursuing placement and possibly hospice enrollment. The guardian assigned to Mr Kauffman is considering this possibility. He will be reviewing the case information with his security shift supervisor and then providing us with direction. In light of the risk of injury associated with the principal removing the PEG himself, it would be more humane, safe and dignified for us to facilitate the removal, if in fact the guardian supports the larger plan.
--- NOTE | 2018-09-07 14:52 | NUR ---
Pt. is lying in bed is not doing well is not responsive and his nurse is in the room attending to his needs,Prayed for the pt.
--- NOTE | 2018-09-07 17:27 | NUR ---
TUBE FEEDING INITIATED PER ORDERS AT THIS TIME. NO RESIDUAL AT THIS TIME.
--- NOTE | 2018-09-07 17:53 | NUR ---
SHIFT SUMMARY. LETHARGIC, DISORIENTATED WITH VARYING LEVELS OF CONFUSION, NOT SURE HOW MUCH PT ACTUALLY COMPREHENDS AND RETAINED, POSSIBLY NOT AT ALL. PT APPEARED TO SLEEP THROUGHOUT MOST OF THE SHIFT. PT DID AWAKEN FOR CARE ONCE WITH ALOT OF STIMULATION REPOSITIONING THE PT AND CHANGING HIS ATTENDS. PT HAD NO S/SX OF DISCOMFORT OR DISTRESS THIS SHIFT, NO DYSPNEA. ZYPREXA HELD THIS AFTERNOON FOR LETHARGY. CONTINUES WITH WRIST RESTRAINTS TO PROTECT PEG TUBE. ETHICS COMMITTEE MEETING COMPLETED THIS AFTERNOON.
--- NOTE | 2018-09-08 05:33 | NUR ---
SHIFT SUMMARY PT VERY LETHARGIC SLEEPY. MINIMAL RESPONSIVENESS. WRIST RESTRAINTS IN USE TO PROTECT LINES/TUBES. YUSUF DRAINING. Q2HR TURNS. TF @ 11O SINCE 1700. 1L O2 NC. GIVEN TYLENOL FOR ORAL TEMP OF 99.1.
--- NOTE | 2018-09-08 14:18 | NUR ---
Pt. is lying in bed as usual no response, prayed for him and blessed him.
--- NOTE | 2018-09-08 17:33 | NUR ---
SHIFT SUMMARY. ALERT THIS SHIFT, DISORIENTATED, GARBLED SPEECH, UNSURE OF LEVEL OF COMPREHENSION OF COMMUNICATION, APPEARS ALMOST NOT AT ALL. AGITATED THIS AFTERNOON, RESTLESS. PRN ZYPREXA GIVEN, PT STILL AGITATED, PRN ATIVAN GIVEN, PT APPEARS TO BE RESTING COMFORTABLY AT THIS TIME, SEE EMAR. NO S/SX OF DISTRESS OR DISCOMFORT. PEG TUBE STILL PATENT, YUSUF PATENT. PT IN L MITT, BILATERAL WRIST RESTRAINTS. GAVE PT SCHEDULED WATER FLUSH PER PEG TUBE, ALTHOUGH NOT THIS AFTERNOON PT CONTINUED TO MOVE DOWN TO FOOT OF BED AND HOB COULD NOT BE ELEVATED TO SAFETLY ADMINISTER PER PEG TUBE WITHOUT GREAT RISK FOR ASPIRATION.
--- NOTE | 2018-09-08 18:53 | NUR ---
TUBE FEEDING STARTED AT 1830 AND IS TO RUN FOR 12 HOURS. PT CALM, HOB 45 DEGREES.
--- NOTE | 2018-09-09 05:26 | NUR ---
NOC SHIFT SUMMARY PT ALERT AND ORIENTED TO SELF. HAS BEEN ANXIOUS THIS SHIFT AND RESISTANT TO CARE. WRIST RESTRAINS AND MITT IN PLACE TO PREVENT PULLING AT LINES. TUBE FEEDING HAS BEEN GOING ON THIS SHIFT AT 110 PER HOUR. RESIDUALS WERE CHECKED AT 0001 AND 0 ML WERE DRAWN OUT. PT HAS BEEN AGITATED FOR MUCH OF SHIFT THIS WAS TREATED WITH ATIVAN AT 0137 TO GOOD EFFECT. SLOWELY FELL TO A LIGHT SLEEP AND EASILY AROUSED. NO ACUTE CHANGED NOTED THIS SHIFT. CURRENTLY APPEARS IN NO ACUTE DISTRESS. WILL CONTINUE TO MONITOR.
--- NOTE | 2018-09-09 13:23 | NUR ---
Pt. is lying in bed as usual, no communication , offered prayers for the pt.
--- NOTE | 2018-09-09 18:22 | NUR ---
SHIFT SUMMARY PT HAS HAD NO ACUTE CHANGES THIS SHIFT, MEDICATED 1X FOR FEVER, 1X FOR AGITATION. REMOVED O2 THIS SHIFT, SATS HAVE REMAINED GREATER THAN 90% ON RA. PT BEDRESTING AT THIS TIME, HOB @ 45, FEEDING RUNNING, WILL CONT TO MONITOR UNTIL REPORT GIVEN TO CARLA WILL.
[2018-09-09 18:59] LABS: Source, Urine Catheter
[2018-09-09 19:03] LABS: Bilirubin, Urine Neg (Neg); Blood, Urine 5+ (Neg); Glucose Qualitative, Urine Neg (Neg); Ketones, Urine Neg (Neg); Leukocyte Esterase, Urine 3+ (Neg); Nitrite, Urine Neg (Neg); Protein, Urine 2+ (Neg); Urobilinogen, Urine NORM (Normal)
[2018-09-09 19:12] LABS: Appearance, Urine Hazy (Clear); Color, Urine Yellow (P-Yellow)
[2018-09-09 19:13] LABS: Bacteria Mod /hpf; Red Blood Cells, Urine TNTC /hpf (0-2); Squamous Epithelial Cells Rare /hpf (Few); White Blood Cells, Urine TNTC /hpf (0-5)
--- NOTE | 2018-09-09 19:44 | NUR ---
Met with pt guardian to help with porcess of plan of care and POLST. After several attempts at interaction with patient POLST completed. REview with guardian trajectory of admission and ICU care. Review of [facility] directives fo care and compassion. Review of medical conditions and prognosis and potential suffering. Goal wast to resent trending and assessment and as much objective finding and data as possible to facilitate ethical support to guardian on plan of care. physician signature needed to complete polst. updated Soila Earl small animal caretaker and nursing staff.
--- NOTE | 2018-09-10 05:06 | NUR ---
SHIFT SUMMARY PT HAS HAD NO ACUTE EVENTS OVER NIGHT. ALSO NO AGITATION DURING THE SHIFT. ORAL CARES DONE. NO BM THIS SHIFT. TUBE FEEDING RAN T/O NIGHT. WILL CONTINUE TO MONITOR.
--- NOTE | 2018-09-10 15:54 | NUR ---
POlst completed and faxed to guardian and medical records and registry, review of pt with hospitalist and care manger. restraints removed. review of pt needs with nursing. will continue theraputic visits with patient and provide surrogate support for future care plan as guided by [facility] directives.
--- NOTE | 2018-09-10 16:36 | NUR ---
1300 CC NOTE. RESTRAINTS HAVE BEEN DC'D. PEG AND YUSUF PATENT. SLEEPY BUT AROUSABLE. SCOPALOMINE PATCH CONTINURE. ORAL CARE DONE.
--- NOTE | 2018-09-10 16:38 | NUR ---
HE HAS BEEN TURNED. ABD BINDER REMOVED PER MD INSTRUCTIONS. HE HAS BEEN REMINDED TO NOT PULL ON YUSUF OR PEG. HE HAS NOT. ORAL CARE DONE. HE APPEARS COMFORTABLE. FOAM PATCH C/D/I ON HIP.
--- NOTE | 2018-09-10 17:43 | NUR ---
HE HAS BEEN SLEEPING ALL DAY BUT AWAKENS VERY EASILY. PEG WATER FLUSHES HAVE BEEN DC'D. HE IS NOT ALERT ENOUGH TO TRY ANYTHING PO. RESTRAINTS WERE DC'D TODAY. DMITRY WAN IS OFF. PEG SITE WNL. PARAMJIT PATENT. NO BM TODAY. HE IS COMFORTABLE. DROPLET ISOLATION IN PLACE. HAD A FEVER EARLIER TODAY. TYLENOL WAS GIVEN. NO OTHER CHANGES.
--- NOTE | 2018-09-10 18:17 | NUR ---
HE IS AWAKE AND TRYING TO TALK TO ME BUT I CANNOT UNDERSTAND HIS WHISPERED VOICE. HE HAS NOT BEEN PULLING ON HIS PEG OR YUSUF. ATTENDS IN PLACE. NO BM. TYLENOL GIVEN FOR FEVER THIS MORNING. HE DOES NOT FEL HOT THIS AFTERNOON. HE HAS BEEN TURNED AND ORAL CARE DONE.
--- NOTE | 2018-09-11 05:17 | NUR ---
SHIFT SUMMARY PT ON COMFORT CARE, NO ACUTE EVENTS DURING THE NIGHT. WILL CONTINUE TO MONITOR.
--- NOTE | 2018-09-11 07:56 | NUR ---
HE IS RESTING COMFORTABLY ON HIS R SIDE. YUSUF PATENT. PEG CAPPED. NO SIGNS OF DISTRESS. HE DOES HAVE SMALL IRREG TWITCHES.
--- NOTE | 2018-09-11 10:09 | NUR ---
LOTS OF UNCONTROLLED JERKING MOVEMENT OF EXTREMITIES. IN ADDITION TO ROUTINE AM MEDICATYIONS, ATIVAN ALSO GIVEN.
--- NOTE | 2018-09-11 11:36 | NUR ---
Pt.lying in bed and unresponsive,offered prayers for the pt.
--- NOTE | 2018-09-11 12:37 | NUR ---
RESTING MUCH MORE COMFORTABLY THAN 2 HRS AGO. THE AM MEDICATIONS INCLUDING ATIVAN HELPED CALM HIS EXTREMITIES. ROUNDED ABOUT 11 AM.
--- NOTE | 2018-09-11 13:55 | NUR ---
TEMP 99.1. TURNED AND CHANGED. NO BM. SKIN RED ON COCCYX AND L HIP. R HIP HAS A FOAM PATCH ON IT. HE APPEARS COMFORTABLE.
--- NOTE | 2018-09-11 16:13 | NUR ---
HE HAS BEEN REPOSITIONED AGAIN AND GIVEN ATIVAN A SECOND TIME THIS SHIFT FOR RESTLESS EXTREMITIES. WHEN HE IS AWAKE HIS L ARM IS USUALLY MOVING. HIS L LEG TOO BUT NOT DRAMATICALLY. SUFFICIENT VOLUME OF U.O. BUT THE COLOR IS GREEN/MONSTER. MD AWARE OF ODD URINE COLOR. PATIENT IS COMFORTABLE WITH THE YUSUF IN PLACE.
--- NOTE | 2018-09-11 18:00 | NUR ---
HE IS ASLEEP ON HIS R SIDE. RESPIRATIONS REGULAR. PEG TUBE PATENT. YUSUF PATENT.
--- NOTE | 2018-09-12 03:11 | NUR ---
SHIFT SUMMARY PATIENT IS ON COMFORT CARE. BEDFAST. MEDICATION GIVEN THROUGH PEG TUBE. NPO AND NONVERBAL. YUSUF IS PATENT AND DRAINING. NO S/SX OF OF PAIN. LEGS NOT RESTLESS THIS SHIFT. DROPLET PRECAUTIONS. BED ALARM ACTIVATED. BED IN LOWEST POSITION. WILL CONTINUE TO MONITOR UNTIL DAY SHIFT NURSE ASSUMES CARE.
--- NOTE | 2018-09-12 09:45 | NUR ---
PT IN NO APPARENT DISTRESS. NO DYSPNEA/SECRETIONS; SCOPOLAMINE TOP IN PLACE. NO FAMILY MEMBERS PRESENT. WCTM.
--- NOTE | 2018-09-12 09:46 | NUR ---
PT IN NO APPARENT DISTRESS. NO DYSPNEA/SECRETIONS; SCOPOLAMINE TOP IN PLACE. NO FAMILY MEMBERS PRESENT. WCTM.
--- NOTE | 2018-09-12 12:32 | NUR ---
PT IN NO APPARENT DISTRESS. NO DYSPNEA/SECRETIONS; SCOPOLAMINE TOP IN PLACE. NO FAMILY MEMBERS PRESENT. WCTM.
--- NOTE | 2018-09-12 14:39 | NUR ---
PT IN NO APPARENT DISTRESS. NO DYSPNEA/SECRETIONS. SCOPOLAMINE TOP IN PLACE. PT REPOSITIOBNED. NO FAMILY MEMBERS PRESENT. WCTM.
--- NOTE | 2018-09-12 15:15 | NUR ---
PT IN NO APPARENT DISTRESS. NO DYSPNEA/SECRETIONS; SCOPOLAMINE TOP IN PLACE. NO FAMILY PRESENT. WCTM.
--- NOTE | 2018-09-12 18:12 | NUR ---
PT IN NO APPARENT DISTRESS. NO DYSPNEA/SECRETIONS; SCOPOLAMINE TOP IN PLACE. NO FAMILY MEMBERS PRESENT. WCTM.
--- NOTE | 2018-09-12 18:13 | NUR ---
NO C/O PAIN / PT IN NO APPARENT DISTRESS. NO DYSPNEA/SECRETIONS. NO FAMILY PRESENT. WCTM.
--- NOTE | 2018-09-12 19:17 | NUR ---
SHIFT SUMMARY: NO ACUTE CHANGES TO REPORT THIS SHIFT. COMFORT CARE MEASURES REMQAIN IN EFFECT. PEG TUBE IN PLACE FOR MEDICATIONS; NO FEEDINGS; PT NPO. SCOPOLAMINE TOP IN PLACE. REPORT GIVEN TO ONCOMING RN.
--- NOTE | 2018-09-12 19:18 | NUR ---
VSS, AFEBRILE, ALERT, ORIENTED TO SELF, NO IV, PEG TUBE IN PLACE, NO COMPLAINTS AT THIS TIME, WILL CONTINUE TO MONITOR.
--- NOTE | 2018-09-13 05:38 | NUR ---
VSS, AFEBRILE, A/O TO SELF, CACHECTIC, PEG TUBE FOR FLUIDS/MEDS, YUSUF FOR RETENTION, INCONT OF BOWEL, MAKES ONLY SOFT SOUNDS BUT NO REAL WORDS, RESISTANT TO CARE AT TIMES, TURN Q 2. WILL REPORT TO ON-COMING SHIFT.
--- NOTE | 2018-09-13 07:47 | NUR ---
PT IN NO APPARENT DISTRESS. NO DYSPNEA/SECRETIONS; SCOPOLAMINE TOP IN PLACE. NO FAMILY MEMBERS PRESENT. WCTM.
--- NOTE | 2018-09-13 09:54 | NUR ---
PT IN NO APPARENT DISTRESS. NO DYSPNEA/SECRETIONS; SCOPOLAMINE TOP IN PLACE. NO FAMILY MEMBERS PRESENT. WCTM.
--- NOTE | 2018-09-13 11:48 | NUR ---
PT IN NO APPARENT DISTRESS. NO DYSPNEA/SECRETIONS; SCOPOLAMINE TOP IN PLACE. NO FAMILY MEMBERS PRESENT AT THIS TIME. WCTM.
--- NOTE | 2018-09-13 14:35 | NUR ---
PT IN NO APPARENT DISTRESS. NO DYSPNEA/SECRETIONS; SCOPOLAMINE TOP IN PLACE. NO FAMILY MEMBERS PRESENT. WCTM.
--- NOTE | 2018-09-13 14:36 | NUR ---
MEDICATED FOR PAIN PER EMAR. NO DYSPNEA/SECRETIONS; SCOPOLAMINE TOP IN PLACE. NO FAMILY PRESENT. WCTM.
--- NOTE | 2018-09-13 15:26 | NUR ---
Arturo appears to be sleeping this morning during my visit. He is contractured but doesn't appear to be uncomfortable at this time. Nursing reports his peg tube is clamped and in place at present. TOMASA is working with guardianship for placement options.
--- NOTE | 2018-09-13 16:42 | NUR ---
PT IN NO APPARENT DISTRESS. MEDICATED FOR AGITATION PER EMAR. NO DYSPNEA/SECRETIONS; SCOPOLAMINE TOP IN PLACE. NO FAMILY PRESENT. WCTM.
--- NOTE | 2018-09-13 19:01 | NUR ---
SHIFT SUMMARY: NO ACUTE CHANGES TO REPORT [facility] SHIFT. PT ALERT; ORIENTED TO SELF. COMFORT CARE MEASURES REMAIN IN EFFECT. MEDICATED FOR AGITATION PER EMAR. SCOPOLAMINE TOP IN PLACE. REPORT GIVEN TO ONCOMING RN.
--- NOTE | 2018-09-13 19:48 | NUR ---
VSS, AFEBRILE, RESTLESS, MAKING SOFT GRUMBLING NOISES, UNINTELLIGIBLE SOUNDS, APPEARS TO BE ANXIOUS, POSSIBLY CAUSED BY PAIN. WILL MEDICATE PER ORDER.
--- NOTE | 2018-09-14 06:16 | NUR ---
VSS, AFEBRILE, SOMULENT MOST OF THE SHIFT, CACHETIC, PEG TUBE IN PLACE AND PATENT, PT HAS BEEN BASICALLY NON-VERBAL ALL SHIFT. PT OPENS HIS EYES SPONTANEIOUSLY, BUT MAKES NO EFFORT TO COMMUNICATE WITH STAFF. NO COMPLAINTS. WILL CONTINUE TO MONITOR.
--- NOTE | 2018-09-14 15:44 | NUR ---
Pt. is lying in bed still unable respond when talked to, offered prayers for the pt.
--- NOTE | 2018-09-14 16:36 | NUR ---
Mr. Kauffman appeared to be sleeping peacefully. He did not respond to voice or touch. Breaths even. He does not apeear to be in any discomfort. I sat bedside him for awhile, providing prayer and presence. I will remain available.
--- NOTE | 2018-09-14 18:33 | NUR ---
SHIFT SUMMARY PT UNRESPONSIVE TODAY EXCEPT ONCE WHEN REPOSITIONED EYES FLUTTERED AND VAGUELY MOANED. MEDS GIVEN THROUGH PEG TUBE. NO S/S OF PAIN OR DISCOMFORT.
--- NOTE | 2018-09-15 04:49 | NUR ---
SHIFT SUMMARY PT ADMITTED FOR RESPIRATORY FAILURE. DNR AND RECENTLY CHANGED TO COMFORT CARE. 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 PT HAS YUSUF CATHETER. NO IV ACCESS NEEDED. PTS ARTIFICAL NURTITION WAS DISCONTINUED ON 09/10/18. THE PT HAS BEEN UNRESPONSIVE SO FAR THIS SHIFT. PT DID NOT WAKE FOR CARE OR REPOSITION AND PT APPEARED TO BE COMFORTABLY SO FAR THIS SHIFT. NO APPARENT NON-VERBAL INDICATORS OF PAIN. WILL CONTINUE TO MONITOR.
--- NOTE | 2018-09-15 08:00 | NUR ---
PT. NONRESPONSIVE TO TOUCH OR SOUND, YUSUF CATHETER DRAINING MONSTER COLORED URINE. NO MOTTLING NOTED. HOT TO TOUCH.
--- NOTE | 2018-09-15 10:00 | NUR ---
PT. STILL SLEEPING NON-RESPONSIVE AT THIS TIME. BEATHING EVEN AND SHALLOW.
--- NOTE | 2018-09-15 11:00 | NUR ---
Nursing reports that pt is only sleeping and not reaching out anymore. LOC has been decreasing. Nursing reports pt is still receiving scheduled medications: keppra, neurontin, zyprexia, lopressor, norvasc and thiamine. Will speak with MD to discuss continuing some or all of these medication. No seizure activity reported. Peg tube used only for meds at this time. Song with small amount of andrea colored urine.
--- NOTE | 2018-09-15 12:00 | NUR ---
PT. NON RESPONSIVE.
--- NOTE | 2018-09-15 13:12 | NUR ---
Pt. lying in his bed as usual , no response, Prayed over him and blessed him.
--- NOTE | 2018-09-15 17:21 | NUR ---
PT. LYING QUIETLY RR INCREASED DOES NOT APPEAR TO BE SOB
--- NOTE | 2018-09-15 18:08 | NUR ---
Mr. Kauffman did not awaken or stir to voice or touch. Breaths are even. He appears well cared-for by nursing and without pain or distress. He seems comfortable. I sat beside him and stroked his forehead. Breathing slowed a bit with this, but no other response. Provided presence of love and prayer. [employer] services will remain available.
--- NOTE | 2018-09-15 19:12 | NUR ---
NO NOTEABLE CHANGES THIS SHIFT.
--- NOTE | 2018-09-16 02:53 | NUR ---
REPORT RECIEVED FROM BLAIR HEARNU RN AND PT T/F TO ROOM 306. COMFORT MEASURES MAINTAINED AND APPEARS COMFORTABLE W/O S/S DISTRESS AT THIS TIME.
--- NOTE | 2018-09-16 02:59 | NUR ---
SUMMARY: PT REMAINS ON COMFORT CARE AND IS UNRESPONSIVE W/O ANY S/S DISTRESS. RESPS ARE E/U BUT ARE IRREGULAR AND CAN BE TACHY AT TIMES THEN SLOW W/SHORT PAUSES. DEPENDENT EDEMA NOTED TO YAIRE. 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 PEG TUBE CLAMPED. YUSUF PATENT AND DRAINING DARK URINE. MEDICATION BEING PROVIDED VIA PEG TUBE AND SUCTION DONE PRN. TURN SCHEDULE MAINTAINED, EXT'S ELEVATED AND FLOATED ON PILLOWS. NO ACUTE CHANGES. WILL MONITOR AND REPORT TO DAY RN.
--- NOTE | 2018-09-16 14:25 | NUR ---
PT DISCHARGED PT DISCHARGED AT 1420. PT ON COMFORT CARE & DISCHARGING TO [facility] TO CONTINUE COMFORT CARE. REPORT CALLED TO [facility] NURSE, YONAS. NURSE STATED THAT SHE HAD NO FURTHER QUESTIONS AT THIS TIME. PT TRANSPORTED BY [facility]. PT HAD NO SIGNS OF PHYSICAL DISCOMFORT BEFORE DEPARTURE.
--- NOTE | 2018-09-16 14:44 | NUR ---
Pt. is discharged today prayed and blessed pt.
[2018-09-16] MEDS ORDERED: tylenol (14:45)
[2018-09-16] MEDS ORDERED: ALBU2.5V5 NEB (14:45)
[2018-09-16] MEDS ORDERED: AMLO10 PT (14:46)
[2018-09-16] MEDS ORDERED: ATROPINE SULFATE2 ML (14:51)
[2018-09-16] MEDS ORDERED: LEVE500 PT (14:56)
[2018-09-16] MEDS ORDERED: LORA1 PT (14:57)
[2018-09-16] MEDS ORDERED: METO25 PT (14:58)
[2018-09-16] MEDS ORDERED: MORP20L SL (15:00)
[2018-09-16] MEDS ORDERED: OLAN5A PO (15:02)
[2018-09-16] MEDS ORDERED: Transderm-Scop1 EACH (15:03)
[2018-09-16] MEDS ORDERED: VITAMIN B-1100 MG PT (15:06)
[2018-09-16] MEDS ORDERED: MORPHINE S (15:09)
== END 2018-09-16 14:23 | DRG 64 ==
LOC: ER 20:07 → ICUW 23:12 → EDBD 23:12 → ICUE 23:12 → PCU 23:12 → MEDS 23:12 → ICUE 06-27 → PCU 07-15 14:51 → MEDS 07-19 16:20 → ICUE 08-03 20:33 → PCU 08-06 05:44 → MEDS 08-12 16:54
PROVIDERS: Emergency Medicine; Family Medicine; Hospitalist; Internal Medicine; Internal Medicine Critical Care Medicine; Internal Medicine Gastroenterology; Nurse Practitioner Acute Care; ADMIT Internal Medicine
PROC: 0BH17EZ Insertion of Endotracheal Airway into Trachea, Via Natural or Artificial Opening (ICD-10-PCS; principal; 2018-06-26)
PROC: 5A1955Z Respiratory Ventilation, Greater than 96 Consecutive Hours (ICD-10-PCS; 2018-06-26)
PROC: 09QKXZZ Repair Nasal Mucosa and Soft Tissue, External Approach (ICD-10-PCS; 2018-06-26)
PROC: 0DH63UZ Insertion of Feeding Device into Stomach, Percutaneous Approach (ICD-10-PCS; 2018-07-15)
PROC: 0DH63UZ Insertion of Feeding Device into Stomach, Percutaneous Approach (ICD-10-PCS; 2018-07-31)
PROC: 0DH63UZ Insertion of Feeding Device into Stomach, Percutaneous Approach (ICD-10-PCS; 2018-08-09)
DX: I63.9 Cerebral infarction, unspecified (principal); A41.9 Sepsis, unspecified organism; J69.0 Pneumonitis due to inhalation of food and vomit; R40.20 Unspecified coma; J96.01 Acute respiratory failure with hypoxia; R53.2 Functional quadriplegia; J15.212 Pneumonia due to Methicillin resistant Staphylococcus aureus; E46 Unspecified protein-calorie malnutrition; G93.1 Anoxic brain damage, not elsewhere classified; K22.10 Ulcer of esophagus without bleeding; Z51.5 Encounter for palliative care; R40.2432 Glasgow coma scale score 3-8, at arrival to emergency department; R56.9 Unspecified convulsions; Z86.73 Personal history of transient ischemic attack (TIA), and cerebral infarction without residual deficits; Z59.0 Homelessness; W19.XXXA Unspecified fall, initial encounter; S01.21XA Laceration without foreign body of nose, initial encounter; E87.6 Hypokalemia; I16.0 Hypertensive urgency; T68.XXXA Hypothermia, initial encounter; R62.7 Adult failure to thrive; K31.9 Disease of stomach and duodenum, unspecified; K26.9 Duodenal ulcer, unspecified as acute or chronic, without hemorrhage or perforation; E83.42 Hypomagnesemia; E83.39 Other disorders of phosphorus metabolism; R29.810 Facial weakness; J43.9 Emphysema, unspecified
CPT/HCPCS: 12013; 31500; 31720; 36415; 36600; 51702; 70450; 71045; 72125; 74177; 80047; 80048; 80053; 80061; 80069; 80177; 80202; 81001; 82010; 82248; 82270; 82272; 82550; 82803; 82947; 83605; 83735; 84100; 84145; 84146; 84295; 84484; 85014; 85018; 85025; 85027; 85610; 85730; 87040; 87070; 87077; 87086; 87147; 87186; 87205; 87486; 87493; 87581; 87633; 87798; 90471; 90714; 92526; 92610; 93005; 93010; 93306; 93880; 94002; 94003; 94640; 94667; 94668; 94760; 95819; 96361; 96374; 96375; 97110; 97112; 97163; 97167; 97530; 99291-25; 99292; C1751; C1769; C9113; G0480; J0360; J0456; J0690; J0696; J1630; J1650; J1885; J1953; J2060; J2250; J2543; J2704; J3010; J3230; J3370; J3475; J3480; J7030; J7040; J7050; J7060; J7070; J7120; L0160; Q9967